=== PATIENT | female | born 1930 | race Asian ===

== ENCOUNTER 2016-09-29 11:41 | Inpatient (IN) | payer MEDICARE, MEDICAID ==
[2016-09-29 12:51] LABS: HEMATOCRIT 25.4 % (35.0-45.0); HEMOGLOBIN 8.8 gm/dL (11.7-16.1); MEAN CELL VOLUME 93.9 fl (81-100); MEAN CORPUSCULAR HEMOGLOBIN 32.7 pg (27.0-31.0); MEAN CORPUSCULAR HGB CONC 34.8 pg (28.0-36.0); MEAN PLATELET VOLUME 7.3 fl; PLATELET COUNT 228 Th/cmm (150-400); RED BLOOD COUNT 2.71 Mil/cmm (3.80-5.20); RED CELL DISTRIBUTION WIDTH 13.5 % (11.5-20.0)
[2016-09-29 12:56] LABS: WHITE BLOOD COUNT 15.3 Th/cmm (4.8-10.8)
[2016-09-29] MEDS ORDERED: Sodium Chloride 0.9% 1,000 ML IV ONE (12:56)
[2016-09-29 13:14] LABS: ALB/GLOB RATIO 0.8 (1.0-1.8); ALKALINE PHOSPHATASE 92 U/L (34-104); ANION GAP 8.9 (7.0-16.0); BILIRUBIN,TOTAL 0.6 mg/dL (0.3-1.0); BUN - UREA NITROGEN 56 mg/dL (7-25); CALCIUM SERUM 8.9 mg/dL (8.6-10.3); CARBON DIOXIDE 25.1 mEq/L (21.0-31.0); CHLORIDE 101 mEq/L (98-107); CREATININE - SERUM 0.7 mg/dL (0.6-1.2); GLUCOSE 123 mg/dL (70-105); SGOT 24 U/L (13-39); SGPT/ALT 25 U/L (7-52); SODIUM SERUM 131 mEq/L (136-145)
[2016-09-29 13:15] LABS: CHOLESTEROL 83 mg/dL (<200); TRIGLYCERIDES 307 mg/dL (<150)
[2016-09-29 13:24] LABS: BAND NEUTROPHILE 2 % (0-10); EOSINOPHIL 1 % (0-5); NEUTROPHILS 88 % (40-80); TOTAL CELLS COUNTED 100
[2016-09-29 13:25] LABS: PLATELET ESTIMATE ADEQUATE (NORMAL)
[2016-09-29 13:27] LABS: ANISOCYTOSIS 1+; PLATELET MORPHOLOGY NORMAL (NORMAL)
--- NOTE | 2016-09-29 13:57 | ED Physician Chart ---
Chief Complaint/HPI - Patient Information Date Seen:: 09/29/16 Time Seen:: 11:59 Chief Complaint:: LOW BLOOD PRESSURE History of Present Illness:: THIS IS AN 86 YO FEMALE BIB EMS WITH A HISTORY OF THE SUDDEN FALL OF HER BP AND SOME DIFFICULTY OF BREATHING. THIS PATIENT IS ON A VENTILATOR AND CHRONICALLY ILL FROM HAVING A CVA, ANEMIA, HYPERTENSION, DJD. Allergies:: Allergies Allergy/AdvReac Type Severity Reaction Status Date / Time No Known Allergies Allergy Verified 09/29/16 12:06 Vitals:: Vital Signs - 8 hr 09/29/16 11:58 Temp 98.3 F HR 101 RR 16 BP 116/54 O2 Sat % 100 Historian:: Medical Records Review:: Nurse's Note Reviewed, Old Chart Reviewed, Transfer documents Reviewed , Patient unable to respond Review of Systems - Review of Systems General/Constitutional: Other (PT IS UNABLE TO RESPOND) Skin: No skin lesions, No rash, No bruising Head: No headache, No light-headedness Eyes: No loss of vision, No pain, No diplopia ENT: No earache, No nasal drainage, No sore throat, No tinnitus Neck: No neck pain, No swelling, No thyromegaly, No stiffness, No mass noted Cardio Vascular: No chest pain, No palpitations, No PND, No orthopnea, No edema Pulmonary: No SOB, No cough, No sputum, No wheezing GI: No nausea, No vomiting, No diarrhea, No pain, No melena, No hematochezia, No constipation, No hematemesis G/U: No dysuria, No frequency, No hematuria Musculoskeletal: No bone or joint pain, No back pain, No muscle pain Endocrine: No polyuria, No polydipsia Psychiatric: No prior psych history, No depression, No anxiety, No suicidal ideation Hematopoietic: No bruising, No lymphadenopathy Allergic/Immuno: No urticaria, No angioedema Neurological: No syncope, No focal symptoms, No weakness, No paresthesia, No headache, No seizure, No dizziness, No confusion, No vertigo Past Medical History - Past Medical History Past Medical History: HTN, CAD, CVA/TIA, Arthritis, Other (RESPIRATORY FAILURE) Family History: None Social History: Non Smoker, No Alcohol, No Drug Use Surgical History: other (TRACH) Family Medical History - Family Member Mother History Unknown: Yes Physical Exam - Physical Examination General/Constitutional: Well-developed, well-nourished, No distress, GCS 15, Non -toxic appearing, Ambulatory Other Gen/Cons comments:: THIS PATIENT IS NOT SPEAKING AND RESPONSIVE TO ONLY PAINFUL STIMULUS. Head: Atraumatic Eyes: Lids, conjuctiva normal, PERRL, EOMI Skin: Nl inspection, No rash, No skin lesions, No ecchymosis, Well hydrated, No lymphadenopathy ENMT: External ears, nose nl, Nasal exam nl, Lips, teeth, gums nl Neck: Nontender, Full ROM w/o pain, No JVD, No nuchal rigidity, No bruit, No mass, No stridor Other Respiratory comments:: THERE ARE BILATERAL RHONCHI HEARD. Cardio Vascular: RRR, No murmur, gallop, rubs, NL S1 S2 GI: No tenderness/rebounding/guarding, No organomegaly, No hernia, Normal BS's, Nondistended, No mass/bruits, No McBurney tenderness : No CVA tenderness Extremities: No tenderness or effusion, Full ROM, normal strength in all extremities, No edema, Normal digits & nails Neuro/Psych: Alert/oriented, DTR's symmetric, Judgement/insight normal, Mood normal, Normal gait Other Neuro/Psych comments:: THIS PATIENT HAS LEFT SIDED WEAKNESS AND SEVERE MUSCLE WASTING IN ALL FOUR EXTREMITIES. Misc: normal gait, Normal back, No paraspinal tenderness Labs/Radiology/EKG Results - Lab Results Results: Laboratory Tests 09/29/16 09/29/16 09/29/16 12:10 12:10 12:10 WBC 15.3 H RBC 2.71 L Hgb 8.8 L Hct 25.4 L MCV 93.9 MCH 32.7 H MCHC Differential 34.8 RDW 13.5 Plt Count 228 MPV 7.3 Band Neutrophils % 2 Neutrophils (Manual) 88 H Lymphocytes 5 L Monocytes 4 Eosinophils 1 Platelet Estimate ADEQUATE Platelet Morphology NORMAL Anisocytosis 1+ PTT (Actin FS) 27.7 Sodium Potassium Chloride Carbon Dioxide Anion Gap BUN Creatinine Est GFR ( Amer) Est GFR (Non-Af Amer) BUN/Creatinine Ratio Glucose Calcium Total Bilirubin AST ALT Alkaline Phosphatase Troponin I Total Protein Albumin Globulin Albumin/Globulin Ratio Triglycerides 307 H Cholesterol 83 LDL Cholesterol Direct 28 L HDL Cholesterol 55 TSH 09/29/16 09/29/16 09/29/16 12:10 12:10 12:10 WBC RBC Hgb Hct MCV MCH MCHC Differential RDW Plt Count MPV Band Neutrophils % Neutrophils (Manual) Lymphocytes Monocytes Eosinophils Platelet Estimate Platelet Morphology Anisocytosis PTT (Actin FS) Sodium 131 L Potassium 4.0 Chloride 101 Carbon Dioxide 25.1 Anion Gap 8.9 BUN 56 H Creatinine 0.7 Est GFR ( Amer) TNP Est GFR (Non-Af Amer) TNP BUN/Creatinine Ratio 80.0 Glucose 123 H Calcium 8.9 Total Bilirubin 0.6 AST 24 ALT 25 Alkaline Phosphatase 92 Troponin I 0.02 Total Protein 7.0 Albumin 3.0 L Globulin 4.0 Albumin/Globulin Ratio 0.8 L Triglycerides Cholesterol LDL Cholesterol Direct HDL Cholesterol TSH 2.45 - Radiology Results Results: CHEST X-RAY = BILATERAL INFILTRATES SEEN - EKG Interpretations EKG Time:: 12:18 Rhythm: A FIB Shushan: RIGHT AXIS Rate: 81 Comments:: MULTI FOCAL PVC'S ED Septic Shock - . Is Septic Shock (SBP<90, OR Lactate>4 mmol\L) present?: No - <6hrs of presentation: Vital Signs: Vital Signs - 8 hr 09/29/16 11:58 Temp 98.3 F HR 101 RR 16 BP 116/54 O2 Sat % 100 Reassessment (Disposition) - Reassessment Reassessment Condition:: Improved - Diagnosis Diagnosis:: PNEUMONIA ANEMIA DEHYDRATION - Patient Disposition Discharge/Transfer:: Acute Care w/in this hosp Admitted to:: Telemetry Admitting Medical Physician:: Zulema Causey Condition at Disposition:: Unchanged ED Discharge Plan - Patient Disposition Admit/Discharge/Transfer: Acute Care w/in this hosp Condition at Disposition: Improved
[2016-09-29 14:17] LABS: URINE BILIRUBIN NEGATIVE (NEGATIVE); URINE BLOOD SMALL (NEGATIVE); URINE COLOR YELLOW; URINE GLUCOSE (UA) NEGATIVE (NEGATIVE); URINE KETONE NEGATIVE (NEGATIVE)
[2016-09-29 14:18] LABS: URINE PH 5.5; URINE PROTEIN NEGATIVE (NEGATIVE); URINE UROBILINOGEN 0.2 E.U./dL (0.2 - 1.0)
[2016-09-29 14:24] LABS: URINE BACTERIA MODERATE /hpf (NONE SEEN); URINE EPITHELIAL CELLS FEW /lpf (FEW)
--- NOTE | 2016-09-29 14:29 | Admit Criteria Form ---
Admit Criteria Forms - Admit Criteria Diagnosis: PNEUMONIA, COMMUNITY ACQUIRED Clinical Indications for Admission to Inpatient Care ( Place 'X' for any and all applicable criteria): Admission is indicated for ANY ONE of the following (1)(2)(3): [ ]I. Hypoxemia indicated by ANY ONE of the following: [ ]a) Oxygen saturation less than 90% while breathing room air [ ]b) PO2 less than 60 mm Hg (8.0 kPa) while breathing room air [ ]c) Chronic lung disease with significant deterioration from baseline oxygenation [ ]II. Appropriate diagnostic testing and treatment unavailable in outpatient or recovery facility (eg,testing or infection control measures unavailable(10) [X]III. Moderate-risk or high-risk category patients (Pneumonia Severity Index (PSI) class IV or V, or CURB-65 score of 3 or greater). [ ]IV. Outpatient treatment failure as indicated by ANY ONE of the following(9) : [ ]a) Failure to respond to antibiotic (eg, resistant organism) [ ]b) Clinically significant adverse effects from medication (eg, vomiting) [ ]c) Complications of pneumonia (eg, empyema, bacteremia) [ ]d) Significant worsening of comorbid cond necessitating inpatient care (eg, chronic heart failure) [ ]V. Intermediate-risk category patients (eg, PSI class III or CURB-65 score 2) who do not improve with initial therapy and observation. [ ]. Immunocompromised patients (eg, AIDS, chronic steroid use) at moderate or high risk based on clinical evaluation. [ ]VII. Complicated pleural effusions (eg, exudative, loculated) [ ]VIII.Hemodynamic instability [ ] IX. Altered mental status that is severe or persistent. [ ]X. Dehydration that is severe or persistent. [ ]XI. Bacteremia [ ]XII. Respiratory finding (eg. tachypnea) that do not respond to outpatient or observation care treatment Extended stay beyond goal length of stay may be needed for (20) [ ]a) Unclear diagnosis [ ]b) Pleural disease [ ]c) Severe pneumonia or treatment failure (25 [ ]d) Respiratory failure (anticipate invasive or noninvasive ventilatory support) [ ]e) Abnormal serum electrolytes (serum Na concentration less than 135 mEq/L (mmol/L) (32)(33) [ ]f) Clinically significant comorbid illness (eg, heart failure, atrial fibrillation with rapid heart rate, alcohol withdrawal, renal insufficiency)(34)(35) [ ]g) Comorbid acute exacerbation of COPD(36) [ ]h) Concomitant diagnosis of malignancy that may be associated with malnutrition, immunologic impairment, or bronchial obstruction. [ ]i) Concomitant altered mental status [ ]j) Culture-identified Gram-negative or antibiotic-resistant organism (eg, Pseudomonas, methicillin-resistant Staphylococcus aureus)(30) [ ]k) Healthcare-associated pneumonia The original [facility] content created by [employer] has been revised. The portions of the content which have been revised are identified through the use of italic text or in bold, and [facility] has neither reviewed nor approved the modified material. All other unmodified content is copyright [facility]. Please see references footnoted in the original [facility] [employer] edition 2016 Admit Criteria Met?: Yes
--- NOTE | 2016-09-29 14:36 | Diagnostic Imaging Report ---
Portable chest x-ray HISTORY: Shortness of breath The heart appears enlarged. There does appear to be degree of pulmonary vascular redistribution. A marginal cardiac decompensation cannot be excluded. No fernando pulmonary edema. No other focal pulmonary processes. Tracheostomy noted. Multiple metallic densities noted in the soft tissues adjacent to the right clavicle. IMPRESSION: 1. Cardiomegaly along with changes that may reflect a marginal degree of congestive heart failure. No fernando pulmonary edema. Clinical correlation needed. 2. No focal pulmonary processes
[2016-09-29 17:05] VITALS: BP 113/59
[2016-09-29] MEDS ORDERED: POLYETHYLENE GLYCOL 3350 17 GM PACK PO PRN (17:20)
[2016-09-29] MEDS ORDERED: [UNRECOGNIZED DRUG - OTHER] GT SCH (17:20)
[2016-09-29] MEDS ORDERED: Ipratropium Neb 0.5 mg/2.5 mL UD HHN ONE (17:20)
[2016-09-29] MEDS ORDERED: ACETAMINOPHEN GT SCH (17:20)
[2016-09-29] MEDS ORDERED: Albuterol Nebulizer 2.5mg/3mL IH SCH (17:45)
[2016-09-29] MEDS ORDERED: Azithromycin 500 MG in Sodium Chloride 0.9% 250 ML IV SCH (18:00)
[2016-09-29] MEDS: Ferrous Sulfate 300 MG/5 ML UDC GT SCH (18:08)
[2016-09-29] MEDS: Albuterol Nebulizer 2.5mg/3mL HHN SCH ×2 (19:00→23:00)
[2016-09-29] MEDS ORDERED: Albuterol Nebulizer 2.5mg/3mL HHN SCH (19:00)
[2016-09-29] MEDS: Ipratropium Neb 0.5 mg/2.5 mL UD HHN SCH ×2 (19:00→23:00)
[2016-09-29] MEDS: Chlorhexidine Gluconate 0.12% 480mL Bottle MM SCH (21:00)
[2016-09-29] MEDS: Cefepime 1 GM in Sodium Chloride 0.9% 50 ML IV SCH (23:17)
[2016-09-30] MEDS: Albuterol Nebulizer 2.5mg/3mL HHN SCH ×6 (03:00→22:56)
[2016-09-30] MEDS: Ipratropium Neb 0.5 mg/2.5 mL UD HHN SCH ×6 (03:00→22:56)
[2016-09-30 07:18] LABS: % BASOPHILS 0.3 % (0.0-2.0); % EOSINOPHILS 3.4 % (0.0-5.0); % LYMPHOCYTES 9.3 % (20.0-50.0); % MONOCYTES 7.9 % (2.0-10.0); % NEUTROPHILS 79.1 % (40.0-80.0); HEMATOCRIT 26.5 % (35.0-45.0); MEAN CELL VOLUME 93.6 fl (81-100); MEAN CORPUSCULAR HEMOGLOBIN 31.7 pg (27.0-31.0); MEAN CORPUSCULAR HGB CONC 33.9 pg (28.0-36.0); NEUTROPHILE ABSOLUTE 8.5 Th/cmm (1.8-8.0); PLATELET COUNT 218 Th/cmm (150-400); RED BLOOD COUNT 2.83 Mil/cmm (3.80-5.20); RED CELL DISTRIBUTION WIDTH 13.7 % (11.5-20.0)
[2016-09-30 07:19] LABS: WHITE BLOOD COUNT 10.7 Th/cmm (4.8-10.8)
--- NOTE | 2016-09-30 08:04 | Consultation ---
REFERRING PHYSICIAN: Dr. Causey. Dr. Causey, thank you very much for this consultation. HISTORY OF PRESENT ILLNESS: This is an 86-year-old female with history of recent CVA about 12 hours, has been on a ventilator, status post tracheostomy, G-tube feeding. The patient apparently had an episode of hypotension. Blood pressure was in 70s according to the family and was brought to the Emergency Room. She was admitted for further treatment and management. The patient was started on IV fluids, has improved since then, not requiring any pressors and was given dose of Rocephin. The patient according to family is a little bit more altered than usual. She is more awake normally. PAST MEDICAL HISTORY: As above. SOCIAL HISTORY: No smoking or drinking. REVIEW OF SYSTEMS: Unobtainable because of the patient's condition. PHYSICAL EXAMINATION: GENERAL: The patient is on vent. VITAL SIGNS: Temperature 98.0, pulse 86, respiration 30-20, blood pressure is 131/60, and saturation 96%. HEENT: Atraumatic and normocephalic. Pupils react to light and accommodation. Ears, nose, and throat are normal. NECK: Supple. CHEST: There is rhonchi bilaterally, fair air entry. HEART: Regular rate and rhythm. ABDOMEN: Soft. EXTREMITIES: No edema. LABORATORY DATA: WBC is 15.0, hemoglobin 8.8, hematocrit 25.4, and platelet is 228,000. Sodium 131, potassium 4.0, BUN 56, and creatinine 0.7. Chest x-ray showed left-sided infiltrate. IMPRESSION: 1. This is an 86-year-old female with left-sided pneumonia, healthcare associated. The patient has been in snf for a while. She has multiple infections in the past and exposed to multiple antibiotics as well. 2. Chronic respiratory failure. 3. Dysphagia. 4. Cerebrovascular accident. PLAN: 1. IV antibiotics. We will change the antibiotics to Maxipime and vancomycin. 2. Nebulizer. 3. Sputum culture. 4. IV hydration. 5. Ventilator support. Case was discussed with the patient's family at bedside in detail. JOB# [id number] [facility]
[2016-09-30 08:19] LABS: ALB/GLOB RATIO 0.7 (1.0-1.8); ALKALINE PHOSPHATASE 82 U/L (34-104); ANION GAP 10.4 (7.0-16.0); BILIRUBIN,TOTAL 0.4 mg/dL (0.3-1.0); BUN - UREA NITROGEN 41 mg/dL (7-25); BUN/CREATININE RATIO 68.3; CARBON DIOXIDE 22.6 mEq/L (21.0-31.0); CHLORIDE 107 mEq/L (98-107); CREATININE - SERUM 0.6 mg/dL (0.6-1.2); GLUCOSE 121 mg/dL (70-105); SGOT 20 U/L (13-39); SGPT/ALT 21 U/L (7-52); SODIUM SERUM 136 mEq/L (136-145)
[2016-09-30 08:59] LABS: pH 7.44 (7.35-7.45)
[2016-09-30 09:00] LABS: ABG SOURCE Arterial; ALLEN TEST YES; BE(B) 1.1 mEq/L (-3.0-3.0); CRITICAL VALUES REPORTED BY SH; FIO2 30; HCO3 25.1 mEq/L (20.0-26.0); MECH RATE 12; MECH VT 400
[2016-09-30] MEDS ORDERED: Non-Formulary Item 1 EA (Amino Acids/Protein Hydrolys [Pro-Stat Awc Liquid] 30 ML) GT SCH (09:00)
--- NOTE | 2016-09-30 09:20 | Diagnostic Imaging Report ---
Portable chest x-ray HISTORY: Pneumonia Compared with prior exam of September 29, 2016, the heart remains enlarged. No definite focal pulmonary processes are seen. No other changes. IMPRESSION: 1. No change from September 29, 2016. No definite focal processes.
[2016-09-30] MEDS: Cefepime 1 GM in Sodium Chloride 0.9% 50 ML IV SCH ×3 (09:21→23:00)
[2016-09-30] MEDS: Potassium Chloride Elixir 20 mEq /15 mL UDC GT SCH (09:22)
[2016-09-30] MEDS: Ascorbic Acid 500 mg/5 mL UDC GT SCH (09:22)
[2016-09-30] MEDS: Pantoprazole 40 mg/Packet GT SCH (09:22)
[2016-09-30] MEDS: Ferrous Sulfate 300 MG/5 ML UDC GT SCH ×2 (09:24→17:45)
[2016-09-30] MEDS: Chlorhexidine Gluconate 0.12% 480mL Bottle MM SCH ×2 (09:24→20:54)
--- NOTE | 2016-09-30 12:16 | History & Physical Pre-OP ---
CHIEF COMPLAINT: Hypertension, congestion. HISTORY OF PRESENT ILLNESS: This is an 86-year-old [place] female with multiple medical problems including chronic respiratory failure, status post tracheostomy, history of PEG feedings, history of CVA, DJD of lumbar spine, who was noted to have an episode of hypotension and increased congestion at the long-term where she resides, namely [facility]. The patient was transferred to ER where pertinent findings included a white count 15.3, sodium 131, BUN of 56. An x-ray showing cardiomegaly with criteria suggestive of CHF and bilateral infiltrates. She also had a UA consistent with a UTI. Vital signs did not show any fever and no hypotension. The patient has been admitted to ICU for further management and care. PAST MEDICAL HISTORY: As noted above. PAST SURGICAL HISTORY: Include trach and PEG. FAMILY HISTORY: Likely noncontributory. SOCIAL HISTORY: Unknown. Currently, she lives at [facility]. ALLERGIES: NKDA. OUTPATIENT MEDICATIONS: Tylenol 650 via G-tube q. 6 hours p.r.n., Pro-Stat daily, Flexeril 5 mg every day, iron sulfate 300 mg via G-tube b.i.d., Lasix 20 mg every day, Zofran p.r.n. 4 mg q. 6 p.r.n. for nausea, vomiting, Protonix 40 every day, potassium elixir 20 mEq every day, tramadol 50 mg q. 8 hours p.r.n. for pain, vitamin C every day, amlodipine 5 every day. REVIEW OF SYSTEMS: Unable to be obtained given the patient's condition. PHYSICAL EXAMINATION: VITAL SIGNS: Temperature 98.8, pulse 77, respirations 14-16, BP 108/49, satting 100% on 30%. GENERAL: She is a well-developed, well-nourished female who appears to be in no acute distress. She is breathing comfortably. HEAD AND NECK: Normocephalic, atraumatic. NECK: There is no JVD or LAD. CARDIAC: Irregularly irregular rhythm. LUNGS: She has got crackles bilaterally. There is no audible wheezing. ABDOMEN: Soft, supple, nontender, nondistended. There is a PEG tube in place. EXTREMITIES: Lower extremities: There is trace edema. NEUROLOGIC: Difficult to assess given the patient does not follow commands. LABORATORY DATA: On admission, white count 15.3, H and H of 8/25, platelet count 28 with 88% neutrophils. Sodium 131, BUN 56, glucose 123. Otherwise, chem 20 was essentially within normal limits. TSH 2.45. ABG drawn on current settings, pH 7.44, pCO2 of 37, pO2 25, bicarb 25, base excess is 1.1. UA showed small leukocyte esterase with 6-10 wbc's and small blood. DIAGNOSTICS: Chest x-ray, official result, cardiomegaly with changes that may reflect CHF. There were no focal pulmonary processes noted. IMPRESSION: 1. Shock. This could be either septic shock or hypovolemic shock, other etiology include cardiogenic shock. 2. Likely bronchitis versus early pneumonia. 3. Rule out congestive heart failure given current findings on x-rays, namely pulmonary vascular congestion. 4. History of chronic respiratory failure, status post trach. 5. History of cerebrovascular accident with late findings including encephalopathy. 6. History of PEG placement secondary to dysphagia. 7. Leukocytosis. 8. UTI. PLAN: The patient has been admitted to ICU for further management and care. The patient has been placed on IV antibiotics, pulmonary supportive care and has been pancultured including blood cultures and sputum C and S. We will follow UA, C and S. Pulmonary consult has also been ordered for further management and care. The patient's medications will be continued and she also will be receiving Lasix as scheduled, namely p.o. 20 daily. BNP level will be asked for given her current findings. Daily labs will be also checked and followup x-ray will be done. JOB# [id number] CHARI
[2016-09-30] MEDS ORDERED: Probiotic Screen MC PRN (14:16)
[2016-10-01] MEDS: Albuterol Nebulizer 2.5mg/3mL HHN SCH ×6 (03:48→23:17)
[2016-10-01] MEDS: Ipratropium Neb 0.5 mg/2.5 mL UD HHN SCH ×6 (03:49→23:17)
[2016-10-01 05:26] LABS: ANION GAP 9.3 (7.0-16.0); BUN - UREA NITROGEN 33 mg/dL (7-25); CALCIUM SERUM 8.9 mg/dL (8.6-10.3); CARBON DIOXIDE 23.9 mEq/L (21.0-31.0); CHLORIDE 110 mEq/L (98-107); CREATININE - SERUM 0.6 mg/dL (0.6-1.2); GLUCOSE 167 mg/dL (70-105); MAGNESIUM 2.3 mg/dL (1.9-2.7); POTASSIUM SERUM 4.2 mEq/L (3.5-5.1); SODIUM SERUM 139 mEq/L (136-145)
[2016-10-01 05:37] LABS: HEMATOCRIT 26.7 % (35.0-45.0); HEMOGLOBIN 9.1 gm/dL (11.7-16.1); MEAN CELL VOLUME 97.2 fl (81-100); MEAN CORPUSCULAR HGB CONC 33.9 pg (28.0-36.0); MEAN PLATELET VOLUME 8.2 fl; PLATELET COUNT 210 Th/cmm (150-400); RED BLOOD COUNT 2.75 Mil/cmm (3.80-5.20); RED CELL DISTRIBUTION WIDTH 13.6 % (11.5-20.0)
[2016-10-01 06:12] LABS: WHITE BLOOD COUNT 17.4 Th/cmm (4.8-10.8)
[2016-10-01] MEDS: Chlorhexidine Gluconate 0.12% 480mL Bottle MM SCH ×2 (08:35→21:36)
[2016-10-01 08:44] LABS: BAND NEUTROPHILE 2 % (0-10); EOSINOPHIL 1 % (0-5); NEUTROPHILS 83 % (40-80); PLATELET ESTIMATE ADEQUATE (NORMAL); PLATELET MORPHOLOGY NORMAL (NORMAL); TOTAL CELLS COUNTED 100
[2016-10-01] MEDS: Ascorbic Acid 500 mg/5 mL UDC GT SCH (09:44)
[2016-10-01] MEDS: Lactobacillus Rhamnosus 10 Billion CFU Capsule PO SCH (09:45)
[2016-10-01] MEDS: Ferrous Sulfate 300 MG/5 ML UDC GT SCH ×2 (09:45→17:52)
[2016-10-01] MEDS: Potassium Chloride Elixir 20 mEq /15 mL UDC GT SCH (09:45)
[2016-10-01] MEDS: Pantoprazole 40 mg/Packet GT SCH (09:45)
[2016-10-01] MEDS: Cefepime 1 GM in Sodium Chloride 0.9% 50 ML IV SCH ×2 (09:46→21:37)
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
[2016-10-02] MEDS: Albuterol Nebulizer 2.5mg/3mL HHN SCH ×6 (03:19→23:37)
[2016-10-02] MEDS: Ipratropium Neb 0.5 mg/2.5 mL UD HHN SCH ×6 (03:19→23:37)
[2016-10-02 04:57] LABS: % BASOPHILS 0.3 % (0.0-2.0); % EOSINOPHILS 2.4 % (0.0-5.0); % LYMPHOCYTES 11.8 % (20.0-50.0); % MONOCYTES 8.9 % (2.0-10.0); % NEUTROPHILS 76.6 % (40.0-80.0); HEMATOCRIT 26.7 % (35.0-45.0); HEMOGLOBIN 9.2 gm/dL (11.7-16.1); MEAN CELL VOLUME 92.9 fl (81-100); MEAN CORPUSCULAR HEMOGLOBIN 31.9 pg (27.0-31.0); MEAN CORPUSCULAR HGB CONC 34.3 pg (28.0-36.0); MEAN PLATELET VOLUME 7.2 fl; NEUTROPHILE ABSOLUTE 6.2 Th/cmm (1.8-8.0); PLATELET COUNT 215 Th/cmm (150-400); RED BLOOD COUNT 2.87 Mil/cmm (3.80-5.20); RED CELL DISTRIBUTION WIDTH 13.8 % (11.5-20.0)
[2016-10-02 05:07] LABS: WHITE BLOOD COUNT 8.1 Th/cmm (4.8-10.8)
[2016-10-02 05:10] LABS: ANION GAP 4.8 (7.0-16.0); BUN - UREA NITROGEN 28 mg/dL (7-25); BUN/CREATININE RATIO 46.7; CALCIUM SERUM 9.2 mg/dL (8.6-10.3); CARBON DIOXIDE 27.2 mEq/L (21.0-31.0); CHLORIDE 108 mEq/L (98-107); CREATININE - SERUM 0.6 mg/dL (0.6-1.2); GLUCOSE 154 mg/dL (70-105); SODIUM SERUM 136 mEq/L (136-145)
[2016-10-02 09:19] LABS: BE(B) 4.2 mEq/L (-3.0-3.0); HCO3 27.1 mEq/L (20.0-26.0); pH 7.51 (7.35-7.45)
[2016-10-02] MEDS: Lactobacillus Rhamnosus 10 Billion CFU Capsule PO SCH (09:19)
[2016-10-02] MEDS: Potassium Chloride Elixir 20 mEq /15 mL UDC GT SCH (09:19)
[2016-10-02] MEDS: Ascorbic Acid 500 mg/5 mL UDC GT SCH (09:19)
[2016-10-02] MEDS: Ferrous Sulfate 300 MG/5 ML UDC GT SCH ×2 (09:19→16:50)
[2016-10-02] MEDS: Pantoprazole 40 mg/Packet GT SCH (09:19)
[2016-10-02] MEDS: Chlorhexidine Gluconate 0.12% 480mL Bottle MM SCH (09:19)
[2016-10-02 09:20] LABS: ABG SOURCE Arterial; ALLEN TEST YES; CRITICAL VALUES REPORTED BY SH; FIO2 30; MECH RATE 12; MECH VT 400
[2016-10-02] MEDS: Cefepime 1 GM in Sodium Chloride 0.9% 50 ML IV SCH ×2 (09:20→21:25)
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
--- NOTE | 2016-10-02 15:14 | Cardiology ---
Patient of Dr. Causey. M-MODE ECHOCARDIOGRAM: Mitral valve, anterior leaflet of the mitral valve shows normal excursion, EF velocity. Posterior leaflet of mitral valve shows normal excursion. Left ventricular posterior wall shows increased thickness, normal excursion. Interventricular septum shows increased thickness, normal excursion, hypertrophy of the left ventricle, ejection fraction 70%, left atrium enlarged. Aortic root shows normal dimension, normal excursion of aortic leaflets. CONCLUSION: Hypertrophy of the left ventricle, left atrial enlargement, ejection fraction 70%. 2D ECHO: Long axis view showed normal sized left ventricle with hypertrophy of the left ventricle. Left atrium enlarged. Aortic root showed normal dimension, normal excursion of aortic leaflets. Short axis view of mitral valve normal. Short axis view of aortic valve normal. Apical four chamber view shows normal sized left ventricle with hypertrophy of the left ventricle, left atrial enlargement, right ventricular cavity normal. Right atrial enlargement. CONCLUSION: Left atrial enlargement. Right atrial enlargement. Hypertrophy of the left ventricle, ejection fraction 70%. Doppler study shows mild mitral regurgitation, tricuspid regurgitation, aortic regurgitation, pulmonary regurgitation, right ventricular systolic pressure 44 mmHg with mild pulmonary hypertension. CONCLUSION: Hypertrophy of the left ventricle, left atrial enlargement, right atrial enlargement, ejection fraction 70%, mild pulmonary hypertension. Mild mitral regurgitation, tricuspid regurgitation, aortic regurgitation, pulmonary regurgitation. [facility]# [id number]
[2016-10-02] MEDS: Chlorhexidine Gluconate 0.12% 15mL Mouthwash MM SCH (16:50)
[2016-10-02] MEDS ORDERED: Amikacin 250 mg/mL 2mL Vial IV ONE (23:51)
[2016-10-03] MEDS: Albuterol Nebulizer 2.5mg/3mL HHN SCH ×6 (03:16→22:04)
[2016-10-03] MEDS: Ipratropium Neb 0.5 mg/2.5 mL UD HHN SCH ×6 (03:16→22:07)
[2016-10-03 05:17] LABS: % BASOPHILS 0.4 % (0.0-2.0); % EOSINOPHILS 2.6 % (0.0-5.0); % LYMPHOCYTES 12.4 % (20.0-50.0); % MONOCYTES 9.9 % (2.0-10.0); % NEUTROPHILS 74.7 % (40.0-80.0); HEMATOCRIT 26.3 % (35.0-45.0); HEMOGLOBIN 9.1 gm/dL (11.7-16.1); MEAN CELL VOLUME 92.7 fl (81-100); MEAN CORPUSCULAR HEMOGLOBIN 32.3 pg (27.0-31.0); MEAN CORPUSCULAR HGB CONC 34.8 pg (28.0-36.0); MEAN PLATELET VOLUME 7.1 fl; NEUTROPHILE ABSOLUTE 5.7 Th/cmm (1.8-8.0); PLATELET COUNT 235 Th/cmm (150-400); RED BLOOD COUNT 2.83 Mil/cmm (3.80-5.20); RED CELL DISTRIBUTION WIDTH 13.6 % (11.5-20.0); WHITE BLOOD COUNT 7.5 Th/cmm (4.8-10.8)
[2016-10-03 05:40] LABS: ANION GAP 7.1 (7.0-16.0); BUN - UREA NITROGEN 27 mg/dL (7-25); CALCIUM SERUM 9.6 mg/dL (8.6-10.3); CARBON DIOXIDE 28.9 mEq/L (21.0-31.0); CHLORIDE 109 mEq/L (98-107); CREATININE - SERUM 0.5 mg/dL (0.6-1.2); GLUCOSE 137 mg/dL (70-105); MAGNESIUM 2.3 mg/dL (1.9-2.7); SODIUM SERUM 141 mEq/L (136-145)
[2016-10-03] MEDS: Ascorbic Acid 500 mg/5 mL UDC GT SCH (08:52)
[2016-10-03] MEDS: Ferrous Sulfate 300 MG/5 ML UDC GT SCH ×2 (08:53→16:55)
[2016-10-03] MEDS: Lactobacillus Rhamnosus 10 Billion CFU Capsule PO SCH (08:53)
[2016-10-03] MEDS: Potassium Chloride Elixir 20 mEq /15 mL UDC GT SCH (08:54)
[2016-10-03] MEDS: Pantoprazole 40 mg/Packet GT SCH (08:54)
[2016-10-03] MEDS: Chlorhexidine Gluconate 0.12% 15mL Mouthwash MM SCH ×2 (08:54→16:55)
[2016-10-03] MEDS: Cefepime 1 GM in Sodium Chloride 0.9% 50 ML IV SCH ×2 (10:22→21:15)
[2016-10-03] MEDS: Sodium Chloride 0.45% 1,000 ML IV SCH (12:00)
[2016-10-04] MEDS: Ipratropium Neb 0.5 mg/2.5 mL UD HHN SCH ×6 (02:15→22:47)
[2016-10-04] MEDS: Albuterol Nebulizer 2.5mg/3mL HHN SCH ×6 (02:15→22:47)
[2016-10-04 05:11] LABS: HEMATOCRIT 28.6 % (35.0-45.0); MEAN CELL VOLUME 93.5 fl (81-100); MEAN CORPUSCULAR HEMOGLOBIN 32.6 pg (27.0-31.0); MEAN CORPUSCULAR HGB CONC 34.8 pg (28.0-36.0); MEAN PLATELET VOLUME 7.2 fl; PLATELET COUNT 233 Th/cmm (150-400); RED BLOOD COUNT 3.06 Mil/cmm (3.80-5.20); RED CELL DISTRIBUTION WIDTH 13.7 % (11.5-20.0)
[2016-10-04 05:20] LABS: WHITE BLOOD COUNT 11.7 Th/cmm (4.8-10.8)
[2016-10-04 05:39] LABS: ANION GAP 7.4 (7.0-16.0); BUN - UREA NITROGEN 27 mg/dL (7-25); CALCIUM SERUM 9.8 mg/dL (8.6-10.3); CARBON DIOXIDE 28.6 mEq/L (21.0-31.0); CHLORIDE 105 mEq/L (98-107); CREATININE - SERUM 0.5 mg/dL (0.6-1.2); GLUCOSE 141 mg/dL (70-105); MAGNESIUM 2.3 mg/dL (1.9-2.7); SODIUM SERUM 137 mEq/L (136-145)
[2016-10-04 08:18] LABS: ANISOCYTOSIS 1+; BAND NEUTROPHILE 4 % (0-10); BASOPHIL 1 % (0-3); EOSINOPHIL 3 % (0-5); METAMYELOCYTE 1 % (0-0); NEUTROPHILS 78 % (40-80); PLATELET ESTIMATE ADEQUATE (NORMAL); PLATELET MORPHOLOGY NORMAL (NORMAL); POLYCHROMASIA 1+; TOTAL CELLS COUNTED 100
[2016-10-04] MEDS: Potassium Chloride Elixir 20 mEq /15 mL UDC GT SCH (09:43)
[2016-10-04] MEDS: Chlorhexidine Gluconate 0.12% 15mL Mouthwash MM SCH ×2 (09:44→17:01)
[2016-10-04] MEDS: Pantoprazole 40 mg/Packet GT SCH (09:44)
[2016-10-04] MEDS: Lactobacillus Rhamnosus 10 Billion CFU Capsule PO SCH (09:44)
[2016-10-04] MEDS: Ferrous Sulfate 300 MG/5 ML UDC GT SCH ×2 (09:44→17:01)
[2016-10-04] MEDS: Ascorbic Acid 500 mg/5 mL UDC GT SCH (09:44)
[2016-10-04] MEDS: Cefepime 1 GM in Sodium Chloride 0.9% 50 ML IV SCH (10:00)
--- NOTE | 2016-10-04 10:28 | Diagnostic Imaging Report ---
CHEST X-RAY: AP view INDICATION: Shortness of breath COMPARISON: Chest x-ray 10/02/2016 FINDINGS: Tracheostomy tube is stable. Increased left basal lung markings are noted. No focal consolidation pleural effusions or evidence of fernando CHF. Mild cardiomegaly is noted with atherosclerosis. IMPRESSION: Increased left basal lung markings again favoring chronic etiology. Superimposed acute process is less likely. No focal consolidations identified.
[2016-10-04] MEDS: Cefepime 1 gm in 0.9% NS 50 mL IV SCH (22:42)
[2016-10-05] MEDS: Ipratropium Neb 0.5 mg/2.5 mL UD HHN SCH ×6 (03:01→22:21)
[2016-10-05] MEDS: Albuterol Nebulizer 2.5mg/3mL HHN SCH ×6 (03:01→22:21)
[2016-10-05] MEDS: Sodium Chloride 0.45% 1,000 ML IV SCH (04:53)
[2016-10-05 05:06] LABS: HEMATOCRIT 28.1 % (35.0-45.0); HEMOGLOBIN 9.8 gm/dL (11.7-16.1); MEAN CORPUSCULAR HEMOGLOBIN 33.9 pg (27.0-31.0); MEAN PLATELET VOLUME 7.3 fl; PLATELET COUNT 248 Th/cmm (150-400); RED CELL DISTRIBUTION WIDTH 13.3 % (11.5-20.0)
[2016-10-05 05:17] LABS: WHITE BLOOD COUNT 16.3 Th/cmm (4.8-10.8)
[2016-10-05 05:25] LABS: ANION GAP 9.8 (7.0-16.0); BUN - UREA NITROGEN 39 mg/dL (7-25); BUN/CREATININE RATIO 55.7; CALCIUM SERUM 9.7 mg/dL (8.6-10.3); CARBON DIOXIDE 24.4 mEq/L (21.0-31.0); CHLORIDE 104 mEq/L (98-107); CREATININE - SERUM 0.7 mg/dL (0.6-1.2); GLUCOSE 150 mg/dL (70-105); POTASSIUM SERUM 4.2 mEq/L (3.5-5.1); SODIUM SERUM 134 mEq/L (136-145)
[2016-10-05] MEDS: Ascorbic Acid 500 mg/5 mL UDC GT SCH (08:28)
[2016-10-05] MEDS: Ferrous Sulfate 300 MG/5 ML UDC GT SCH ×2 (08:28→18:48)
[2016-10-05] MEDS: Potassium Chloride Elixir 20 mEq /15 mL UDC GT SCH (08:28)
[2016-10-05] MEDS: Lactobacillus Rhamnosus 10 Billion CFU Capsule PO SCH (08:29)
[2016-10-05] MEDS: Pantoprazole 40 mg/Packet GT SCH (08:29)
[2016-10-05 08:42] LABS: BAND NEUTROPHILE 7 % (0-10); EOSINOPHIL 1 % (0-5); METAMYELOCYTE 2 % (0-0); NEUTROPHILS 78 % (40-80); TOTAL CELLS COUNTED 100
[2016-10-05 08:43] LABS: ANISOCYTOSIS 1+; PLATELET ESTIMATE ADEQUATE (NORMAL); PLATELET MORPHOLOGY NORMAL (NORMAL); POLYCHROMASIA 1+
[2016-10-05] MEDS: Chlorhexidine Gluconate 0.12% 15mL Mouthwash MM SCH ×2 (09:06→17:20)
[2016-10-05 10:16] LABS: URINE BILIRUBIN NEGATIVE (NEGATIVE); URINE BLOOD TRACE (NEGATIVE); URINE COLOR YELLOW; URINE GLUCOSE (UA) NEGATIVE (NEGATIVE); URINE KETONE NEGATIVE (NEGATIVE); URINE PROTEIN 30 mg/dL (NEGATIVE); URINE UROBILINOGEN 0.2 E.U./dL (0.2 - 1.0)
[2016-10-05 10:17] LABS: INR 1.06 (0.5-1.4)
[2016-10-05 10:29] LABS: URINE BACTERIA OCCASIONAL /hpf (NONE SEEN); URINE EPITHELIAL CELLS OCCASIONAL /lpf (FEW)
[2016-10-05] MEDS: Cefepime 1 gm in 0.9% NS 50 mL IV SCH (11:00)
--- NOTE | 2016-10-05 17:49 | Consultation ---
REFERRING PHYSICIAN: Dr. Causey. REASON FOR CONSULTATION: Replacement of tracheostomy tube. Thank you for referring this patient to me. HISTORY OF PRESENT ILLNESS: This is an 86-year-old female who comes in for hypertension and congestion. PAST MEDICAL HISTORY: Includes respiratory failure and tracheostomy and the tube apparently has been in place for a long time. Duration is not exactly known. She has CVA with encephalopathy. She has a PEG in place and UTI. Attempt was made by bleach tester to change the trach tube because of possible leak, but this started to bleed. Surgical evaluation was done and replacement will be done in the operating room where control of bleeding can be done if necessary. JOB# [id number]
--- NOTE | 2016-10-05 18:37 | Operative Report ---
PREOPERATIVE DIAGNOSES: 1. Respiratory failure, chronic. 2. Ventilatory support via tracheostomy. 3. Cerebrovascular accident. 4. PEG tube feeding. POSTOPERATIVE DIAGNOSES: 1. Respiratory failure, chronic. 2. Ventilatory support via tracheostomy. 3. Cerebrovascular accident. 4. PEG tube feeding. OPERATION DONE: Replacement of tracheostomy tube. INDICATION: An attempt to replace the tube by brand manager resulted in some bleeding and because of the resistance, this was discontinued. SURGEON: Fredi Carreon M.D. ANESTHESIA: MAC. ANESTHESIOLOGIST: Dr. Kaye. DESCRIPTION OF PROCEDURE: The patient was given IV sedation. The neck was hyperextended, prepped with Betadine and draped in appropriate manner. With some force, the old tracheostomy tube was removed and a new one [place] 6 long length was inserted. This anchored to the neck and the balloon inflated. The patient tolerated the procedure well. [facility]# [id number]
[2016-10-06] MEDS: Cefepime 1 gm in 0.9% NS 50 mL IV SCH ×3 (00:13→22:33)
[2016-10-06] MEDS: Ipratropium Neb 0.5 mg/2.5 mL UD HHN SCH ×6 (02:18→22:50)
[2016-10-06] MEDS: Albuterol Nebulizer 2.5mg/3mL HHN SCH ×5 (02:18→19:53)
[2016-10-06] MEDS: Sodium Chloride 0.45% 1,000 ML IV SCH (05:26)
[2016-10-06 05:27] LABS: ANION GAP 7.4 (7.0-16.0); BUN - UREA NITROGEN 30 mg/dL (7-25); CALCIUM SERUM 9.1 mg/dL (8.6-10.3); CARBON DIOXIDE 26.6 mEq/L (21.0-31.0); CHLORIDE 103 mEq/L (98-107); CREATININE - SERUM 0.5 mg/dL (0.6-1.2); GLUCOSE 126 mg/dL (70-105); SODIUM SERUM 133 mEq/L (136-145)
[2016-10-06 05:28] LABS: HEMATOCRIT 26.4 % (35.0-45.0); MEAN CELL VOLUME 92.7 fl (81-100); MEAN CORPUSCULAR HEMOGLOBIN 31.5 pg (27.0-31.0); MEAN PLATELET VOLUME 7.9 fl; PLATELET COUNT 202 Th/cmm (150-400); RED BLOOD COUNT 2.85 Mil/cmm (3.80-5.20); RED CELL DISTRIBUTION WIDTH 13.4 % (11.5-20.0)
[2016-10-06 05:40] LABS: WHITE BLOOD COUNT 14.5 Th/cmm (4.8-10.8)
[2016-10-06 08:55] LABS: BAND NEUTROPHILE 2 % (0-10); EOSINOPHIL 3 % (0-5); NEUTROPHILS 77 % (40-80); PLATELET ESTIMATE ADEQUATE (NORMAL); PLATELET MORPHOLOGY NORMAL (NORMAL); TOTAL CELLS COUNTED 100
[2016-10-06] MEDS: Ferrous Sulfate 300 MG/5 ML UDC GT SCH ×2 (08:56→17:44)
[2016-10-06] MEDS: Lactobacillus Rhamnosus 10 Billion CFU Capsule PO SCH (08:59)
[2016-10-06] MEDS: Pantoprazole 40 mg/Packet GT SCH (08:59)
[2016-10-06] MEDS: Potassium Chloride Elixir 20 mEq /15 mL UDC GT SCH (09:01)
[2016-10-06] MEDS: Ascorbic Acid 500 mg/5 mL UDC GT SCH (09:02)
[2016-10-06] MEDS: Chlorhexidine Gluconate 0.12% 15mL Mouthwash MM SCH ×2 (09:03→18:51)
--- NOTE | 2016-10-06 13:00 | General Progress Note ---
Subjective - Review of Systems Service Date: 10/06/16 Events since last encounter: trach OK Objective - Results Result Diagrams: 10/06/16 04:35 10/06/16 04:35 Recent Labs: Laboratory Last Values WBC 14.5 Th/cmm (4.8-10.8) H 10/06/16 04:35 RBC 2.85 Mil/cmm (3.80-5.20) L 10/06/16 04:35 Hgb 9.0 gm/dL (11.7-16.1) L 10/06/16 04:35 Hct 26.4 % (35.0-45.0) L 10/06/16 04:35 MCV 92.7 fl (81-100) 10/06/16 04:35 MCH 31.5 pg (27.0-31.0) H 10/06/16 04:35 MCHC Differential 34.0 pg (28.0-36.0) 10/06/16 04:35 RDW 13.4 % (11.5-20.0) 10/06/16 04:35 Plt Count 202 Th/cmm (150-400) 10/06/16 04:35 MPV 7.9 fl 10/06/16 04:35 Neutrophils % 74.7 % (40.0-80.0) 10/03/16 05:06 Band Neutrophils % 2 % (0-10) 10/06/16 04:35 Lymphocytes % 12.4 % (20.0-50.0) L 10/03/16 05:06 Monocytes % 9.9 % (2.0-10.0) 10/03/16 05:06 Eosinophils % 2.6 % (0.0-5.0) 10/03/16 05:06 Basophils % 0.4 % (0.0-2.0) 10/03/16 05:06 Neutrophils (Manual) 77 % (40-80) 10/06/16 04:35 Lymphocytes 13 % (20-50) L 10/06/16 04:35 Monocytes 5 % (2-10) 10/06/16 04:35 Eosinophils 3 % (0-5) 10/06/16 04:35 Basophils 1 % (0-3) 10/04/16 04:48 Metamyelocytes 2 % (0-0) H 10/05/16 04:39 Platelet Estimate ADEQUATE (NORMAL) 10/06/16 04:35 Platelet Morphology NORMAL (NORMAL) 10/06/16 04:35 Polychromasia 1+ 10/05/16 04:39 Anisocytosis 1+ 10/05/16 04:39 RBC Morph Micro Appear NORMAL (NORMAL) 10/06/16 04:35 PT 11.0 SECONDS (9.5-11.5) 10/05/16 09:55 INR 1.06 (0.5-1.4) 10/05/16 09:55 PTT (Actin FS) 26.3 SECONDS (26.0-38.0) 10/05/16 09:55 Specimen Source Arterial 10/02/16 08:00 Sample Site Right Radial 10/02/16 08:00 pH 7.51 (7.35-7.45) H 10/02/16 08:00 pCO2 34.0 mmHg (35.0-45.0) L 10/02/16 08:00 pO2 143.0 mmHg (80.0-100.0) H 10/02/16 08:00 HCO3 27.1 mEq/L (20.0-26.0) H 10/02/16 08:00 Base Excess 4.2 mEq/L (-3.0-3.0) H 10/02/16 08:00 O2 Saturation 99.0 % (92.0-100.0) 10/02/16 08:00 Antonio Test YES 10/02/16 08:00 Vent Rate 12 10/02/16 08:00 Inspired O2 30 10/02/16 08:00 Tidal Volume 400 10/02/16 08:00 PEEP 5 10/02/16 08:00 Pressure (ins/psv/peep) NA 10/02/16 08:00 Critical Value SH 10/02/16 08:00 Sodium 133 mEq/L (136-145) L 10/06/16 04:35 Potassium 4.0 mEq/L (3.5-5.1) 10/06/16 04:35 Chloride 103 mEq/L (98-107) 10/06/16 04:35 Carbon Dioxide 26.6 mEq/L (21.0-31.0) 10/06/16 04:35 Anion Gap 7.4 (7.0-16.0) 10/06/16 04:35 BUN 30 mg/dL (7-25) H 10/06/16 04:35 Creatinine 0.5 mg/dL (0.6-1.2) L 10/06/16 04:35 Est GFR ( Amer) TNP 10/06/16 04:35 Est GFR (Non-Af Amer) TNP 10/06/16 04:35 BUN/Creatinine Ratio 60.0 10/06/16 04:35 Glucose 126 mg/dL (70-105) H 10/06/16 04:35 Calcium 9.1 mg/dL (8.6-10.3) 10/06/16 04:35 Magnesium 2.3 mg/dL (1.9-2.7) 10/04/16 04:48 Total Bilirubin 0.4 mg/dL (0.3-1.0) 09/30/16 07:00 AST 20 U/L (13-39) 09/30/16 07:00 ALT 21 U/L (7-52) 09/30/16 07:00 Alkaline Phosphatase 82 U/L (34-104) 09/30/16 07:00 Troponin I 0.02 ng/mL (0.01-0.05) 09/29/16 12:10 B-Natriuretic Peptide 213.0 pg/mL (5.0-100.0) H 10/05/16 04:39 Total Protein 6.9 gm/dL (6.0-8.3) 09/30/16 07:00 Albumin 2.9 gm/dL (3.7-5.3) L 09/30/16 07:00 Globulin 4.0 gm/dL 09/30/16 07:00 Albumin/Globulin Ratio 0.7 (1.0-1.8) L 09/30/16 07:00 Triglycerides 307 mg/dL (<150) H 09/29/16 12:10 Cholesterol 83 mg/dL (<200) 09/29/16 12:10 LDL Cholesterol Direct 28 mg/dL (75-193) L 09/29/16 12:10 HDL Cholesterol 55 mg/dL (23-92) 09/29/16 12:10 TSH 2.45 uIU/ml (0.34-5.60) 09/29/16 12:10 Urine Source DONNELLY PORT 10/05/16 09:00 Urine Color YELLOW 10/05/16 09:00 Urine Clarity SL. CLOUDY (CLEAR) 10/05/16 09:00 Urine pH 6.0 10/05/16 09:00 Ur Specific Greer 1.020 (1.005-1.030) 10/05/16 09:00 Urine Protein 30 mg/dL (NEGATIVE) H 10/05/16 09:00 Urine Glucose (UA) NEGATIVE mg/dL (NEGATIVE) 10/05/16 09:00 Urine Ketones NEGATIVE mg/dL (NEGATIVE) 10/05/16 09:00 Urine Blood TRACE (NEGATIVE) 10/05/16 09:00 Urine Nitrate NEGATIVE (NEGATIVE) 10/05/16 09:00 Urine Bilirubin NEGATIVE (NEGATIVE) 10/05/16 09:00 Urine Urobilinogen 0.2 E.U./dL (0.2 - 1.0) 10/05/16 09:00 Ur Leukocyte Esterase TRACE (NEGATIVE) H 10/05/16 09:00 Urine RBC 6-8 /hpf (0-5) 10/05/16 09:00 Urine WBC 10-25 /hpf (0-5) H 10/05/16 09:00 Ur Epithelial Cells OCCASIONAL /lpf (FEW) 10/05/16 09:00 Urine Bacteria OCCASIONAL /hpf (NONE SEEN) 10/05/16 09:00 Amikacin Peak 9.2 ug/mL (20.0-30.0) L 10/04/16 11:00 Amikacin Trough 1.4 ug/mL (1.0-8.0) 10/04/16 09:40 Vancomycin Trough 15.1 ug/mL (10-20) 10/04/16 09:10 RPR NONREACTIVE (NONREACTIVE) 09/29/16 12:10 - Physical Exam Vitals and I&O: Vital Signs Temp 98.5 F 10/06/16 08:00 Pulse 77 10/06/16 11:21 Resp 12 10/06/16 11:00 BP 104/61 10/06/16 11:00 Pulse Ox 100 10/06/16 11:21 Intake & Output 10/05/16 10/06/16 10/06/16 18:59 06:59 18:59 Intake Total 652 2152 250 Output Total 1080 500 Balance -428 1652 250 Weight (lbs) 62.823 kg Intake: Intake, IV Amount 402 2152 250 Amikacin 500 mg In 102 102 Dextrose 5% 100 ml @ 200 mls/hr IV Q12H [facility] Rx#: [id number] Cefepime 1 gm In Sodium 50 50 Chloride 0.9% 50 ml @ 100 mls/hr IV Q12H [facility] Rx#: [id number] Sodium Chloride 0.45% 1, 2000 000 ml @ 50 mls/hr IV . Q20H [facility] Rx#:[id number] Vancomycin HCl 1.25 gm In 250 250 Sodium Chloride 0.9% 250 ml @ 165 mls/hr IV Q24H [facility] Rx#:[id number] Tube Feeding 250 Output: Gastric Drainage 0 Urine 1080 500 Other: # Bowel Movements 2 0 Active Medications: Current Medications Acetaminophen (Tylenol 650mg/20.3ml Suspension) 650 mg GT Q6HR PRN PRN Reason: Fever > 101 Stop: 12/02/16 10:33 Last Admin: 10/05/16 05:00 Dose: 650 mg Acetylcysteine (Mucomyst 20%) 3 ml HHN Q8HRT [facility] Stop: 12/01/16 22:59 Last Admin: 10/06/16 07:22 Dose: 3 ml Albuterol Sulfate (Albuterol 2.5mg/3ml Neb Ud) 2.5 mg HHN Q4HRT [facility] Stop: 11/28/16 18:59 Last Admin: 10/06/16 11:20 Dose: 2.5 mg Amiodarone HCl (Cordarone) 200 mg PO DAILY [facility] Stop: 12/02/16 08:59 Last Admin: 10/06/16 09:08 Dose: 200 mg Amlodipine Besylate (Norvasc) 5 mg GT DAILY [facility] Stop: 11/29/16 08:59 Last Admin: 10/06/16 09:11 Dose: Not Given Ascorbic Acid (Vitamin C) 500 mg GT DAILY [facility] Stop: 11/29/16 08:59 Last Admin: 10/06/16 09:02 Dose: 500 mg Chlorhexidine Gluconate (Peridex) 15 ml MM BID [facility] Stop: 12/01/16 16:59 Last Admin: 10/06/16 09:03 Dose: 15 ml Cyclobenzaprine HCl (Flexeril) 5 mg GT DAILY [facility] Stop: 11/29/16 08:59 Last Admin: 03/17/17 08:56 Dose: 5 mg Ferrous Sulfate (Iron) 330 mg GT BID [facility] Stop: 11/28/16 17:19 Last Admin: 10/06/16 08:56 Dose: 330 mg Furosemide (Lasix) 20 mg IVP DAILY [facility] Stop: 12/04/16 08:59 Last Admin: 10/06/16 09:11 Dose: 20 mg Sodium Chloride (Nacl 0.45%) 1,000 mls @ 50 mls/hr IV .Q20H [facility] Stop: 12/02/16 09:29 Last Infusion: 10/06/16 05:29 Dose: Infused Cefepime HCl 1 gm/ Sodium (Chloride) 50 mls @ 100 mls/hr IV Q12H [facility] Stop: 12/03/16 22:59 Last Admin: 10/06/16 12:18 Dose: 100 mls/hr Vancomycin HCl 1.25 gm/ Sodium (Chloride) 250 mls @ 165 mls/hr IV Q24H [facility] Stop: 12/04/16 08:59 Last Infusion: 10/06/16 10:30 Dose: Infused Amikacin Sulfate 500 mg/ (Dextrose) 102 mls @ 200 mls/hr IV Q12H [facility] Stop: 12/04/16 09:59 Last Admin: 10/06/16 11:09 Dose: 200 mls/hr Ipratropium Yarnell (Atrovent Neb 0.5mg/2.5ml) 0.5 mg HHN Q4HRT [facility] Stop: 11/28/16 18:59 Last Admin: 10/06/16 11:20 Dose: 0.5 mg Lactobacillus Rhamnosus (Culturelle) 1 each PO DAILY [facility] Stop: 11/30/16 08:59 Last Admin: 10/06/16 08:59 Dose: 1 each Miscellaneous (Vancomycin Iv Per Pharmacy) 1 ea PRN PRN PRN Reason: PROTOCOL Stop: 11/28/16 21:01 Miscellaneous (Probiotic Screen) 1 ea PRN PRN PRN Reason: PROTOCOL Stop: 11/29/16 14:15 Miscellaneous (Amikacin Iv Per Pharmacy) 1 [facility] PRN PRN PRN Reason: PROTOCOL Stop: 12/01/16 18:02 Ondansetron HCl (Zofran Odt) 4 mg PO Q6HR PRN PRN Reason: Nausea / Vomiting Pantoprazole Sodium (Protonix) 40 mg GT DAILY [facility] Stop: 11/29/16 08:59 Last Admin: 10/06/16 08:59 Dose: 40 mg Polyethylene Glycol (Miralax) 17 gm PO BID PRN PRN Reason: Constipation Stop: 11/28/16 17:19 Potassium Chloride (Potassium Chloride Elixir) 10 meq GT DAILY [facility] Stop: 11/29/16 08:59 Last Admin: 10/06/16 09:01 Dose: 10 meq Tramadol HCl (Ultram) 50 mg GT Q8HRT PRN PRN Reason: Pain (Moderate) Stop: 11/28/16 17:19 Last Admin: 10/01/16 00:55 Dose: 50 mg - Procedures Procedures: Procedures Procedure Code Date RESPIRATORY VENTILATION, GREATER THAN 96 CONSECUTIVE HOURS [id number] 09/29/16 VENT MGMT INPAT INIT DAY 09/29/16 VENT MGMT INPAT SUBQ DAY 09/29/16 Nutritional Asmnt/Malnutr-PDOC - Dietary Evaluation Malnutrition Findings (Please click <Entered> for more info): Nutritional Asmnt/Malnutrition Start: 09/30/16 09: 36 Text: Status: Complete Freq: Document 09/30/16 09:36 MMULIVANIA (Rec: 09/30/16 09:58 MMULHERJermaine MCLEAN- [email or web address]) Nutritional Asmnt/Malnutrition Patient General Information Nutritional Screening High Risk Screening Diagnosis Pneumonia, leukocytosis ( Reason for visit) Pertinent Medical Hx/Surgical Hx Per nursing notes, CVA Subjective Information Patient was admitted from SNF with trach and G Tube. History of dysphagia with G tube feedings. Tube feeding at SNF is [facility] at 60ml/hr x 20 hours. This provides 1200 ml volume, 1800 kcal, 81 gm protein. Current Diet Order/ Nutrition Support Nutren Pulmonary at 60ml/hr, free water flush 100ml q6 hr. Prosource 1/day. Patient / S.O Not Indicated Pertinent Medications vitamin C, iron, lasix, vancomycin, zofran, protonix, miralax, K clor Pertinent Labs (09/30)Albumin 2.9, TAG 307 Nutritional Hx/Data Height 1.55 m Height (Calculated Centimeters) 154.9 Current Weight (lbs) 56.699 kg Weight (Calculated Kilograms) 56.7 Weight (Calculated Grams) 70901.0 [place] Body Weight 105lb % [place] Body Weight 119 Recent Weight Change No Weight Status Approriate GI Symptoms Difficult in: Swallowing Food Allergies No Cultural/Ethnic/Yazdanism Belief None indicated Usual diet at home Tube feeding Skin Integrity/Comment: 1+ pitting edema in foot/sierra, intact, Simone 14 Current %PO Tube feedi Estimated Nutritional Goals BEE in Kcals: Using Current wt Calories/Kcals/Kg 25-30 kcal/kg Kcals Calculated 3261-7691 kcal/day Protein: Using Current wt Protein g/k.2-1.5 gm/kg Protein Calculated 68-85 gm/day Fluid: ml 1774-3154 ml/day Nutritional Problem 1. Problem Problem Excessive enteral infusion related to Etiology high tube feeding rate aeb Signs/Symptoms: current regimen meeting 130% of upper end calorie needs and 115% of upper end protein needs. Intervention/Recommendation Recommendations by RD Decrease Calorie Intake Comments Current tube feeding regimen provides 2220 kcal/day, 98 gm protein (113gm with prosource) 1523 ml free water with flushes. (>130% of estimated nutrient needs). 1. Decrease tube feeding rate to 45 ml/hr (Nutren Pulmonary) plus Prosource 1 packet/day. Continue cristofer water flush 100ml every 6 hours. Expected Outcomes/Goals Expected Outcomes/Goals patient meet 75-115% of estimated nutrient needs, weight remains stable, labs remain normal, skin remains intact. Physician Parameters for PEM Serum Albumin (g/dl) 2.4 - 3.0 (Moderate)
--- NOTE | 2016-10-06 15:18 | Operative Report ---
INPATIENT GASTROINTESTINAL PROCEDURE PROCEDURE: G-tube change. REFERRING PHYSICIAN: Dr. Causey. CONSENT: Risks, benefits, alternatives, nature, indication, possible outcomes were discussed. Mentioned bleeding, infection, perforation, , disability, cardiopulmonary distress and arrest, missed lesion and cancers, need for surgery, cellulitis, malfunctioning feeding tube. The patient's son expressed understanding and provided informed consent. PREOPERATIVE DIAGNOSIS: Malfunctioning G-tube, more specifically staff was trying to infuse feeding material through the G-tube and was getting quite a bit resistant thought that was clogged and needed to have a G-tube change. POSTOPERATIVE DIAGNOSES: Malfunctioning G-tube located superficial and the internal stomach lumen has already closed. MEDICATIONS: None. DESCRIPTION OF PROCEDURE: The patient was placed on her back. The old G-tube which was an original PEG tube was identified and pulled out. It seemed to be quite superficial. The bumper was likely buried in the subcutaneous tissue and was not in the stomach lumen. At this point, a 20-Telugu gastrostomy tube was attempted to be inserted, but it would not enter into the stomach lumen. We tried with a 16-Telugu Carrillo and it too was not entering into stomach lumen. 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 COMPLICATIONS: None. FINDINGS: Gastric hole ____. PLAN: 1. We will need an original PEG tube when the patient is improved. 2. Keep the patient n.p.o. 3. TPN in the meantime. Thank you for allowing me to participate. Please call me if any questions. JOB# [id number]
[2016-10-06] MEDS: Sodium Chloride 0.9% 250 ML IV SCH (16:49)
[2016-10-06] MEDS: Amino Acids 3% / Electrolytes 1,000 ML IV SCH (16:49)
[2016-10-06] MEDS: Budesonide 0.5 Mg/2 mL Ud HHN SCH (19:52)
--- NOTE | 2016-10-06 22:20 | Consultation ---
REFERRING PHYSICIAN: Dr. Causey. REASON FOR CONSULTATION: Malfunctioning G-tube, dysphagia. HISTORY OF PRESENT ILLNESS: An 86-year-old female who has respiratory failure, currently in the ICU, G-tube is not working per staff and therefore, ____ the patient to consider replacing and the patient is, otherwise, a poor historian. PAST MEDICAL HISTORY: Respiratory failure, dysphagia, stroke, DJD. PAST SURGICAL HISTORY: Trach and PEG. FAMILY HISTORY: Noncontributory. SOCIAL HISTORY: No tobacco, alcohol or IV drug usage. ALLERGIES: None. CURRENT MEDICATIONS: Tylenol, Mucomyst, amikacin, Norvasc, Cordarone, cefepime, peridex, Flexeril, iron, Lasix, vancomycin, Zofran, Protonix, MiraLax, Ultram. REVIEW OF SYSTEMS: Unobtainable. PHYSICAL EXAMINATION: VITAL SIGNS: Temperature is 98.5, breathing 12, pulse is 77, blood pressure is 104/61, satting 100%. GENERAL: In no apparent distress. EYES: Anicteric, normal conjunctivae. HEENT: Normocephalic, atraumatic. Moist mucous membranes. NECK: Soft and trached. CHEST: Coarse breath sounds. CARDIOVASCULAR: Regular rate and rhythm. ABDOMEN: Soft, nontender, nondistended with a G-tube. SKIN: Warm, dry. EXTREMITIES: Reveal no cyanosis. LABORATORY DATA: Show white count 14.5, hemoglobin 9, platelets of 202. INR is 1.06. IMPRESSION: An 86-year-old female with malfunctioning G-tube that is clogged, G-tube has been in for approximately 4 months per the patient's family members, they were explained the need for the change of G-tube and ____have occurring. PLAN: G-tube would be changed at bedside by traction method and replace with another gastrostomy tube. Thank you for allowing me to participate. Please call me if any questions. JOB# [id number]
--- NOTE | 2016-10-06 22:57 | Consultation ---
INFECTIOUS DISEASE CONSULTATION HISTORY OF PRESENT ILLNESS: This is an 86-year-old female who was brought to the Emergency Room from a fdc with low blood pressure. HISTORY OF PRESENT ILLNESS: The patient lives in a fdc, was found to have following blood pressure. The patient was brought to Emergency Room at [facility] where the patient was evaluated and admitted to ICU. Workup shows pneumonia. The patient was seen by Pulmonary. Antibiotic started. Sputum cultures are positive for MRSA. Infectious disease consultation was called for further treatment. Antibiotic adjusted. The patient's examination was possible. PAST MEDICAL HISTORY: Chronic anemia, CVA, hypertension, coronary artery disease, and tracheostomy. FAMILY HISTORY: Negative. Nonsmoker. ALLERGIES: None. REVIEW OF SYSTEMS: Limited because of the patient's dementia and previous stroke. No fall, trauma, bleeding, HIV, or hepatitis. Rest of the review of systems unable to obtain. PHYSICAL EXAMINATION: GENERAL: Well-nourished female. VITAL SIGNS: Temperature 97.2, pulse 78, respiration 12, and blood pressure 129/60. HEENT: Mild pallor. No icterus. No plaque. NECK: Supple. LUNGS: Breath sounds bilateral vesicular. CARDIOVASCULAR: S1, S2. ABDOMEN: Soft. Bowel sounds present. Tracheostomy present. No thyromegaly. No cervical lymph nodes. EXTREMITIES: Sacral decubitus, muscle hypertrophy. Osteoarthritic changes present. LABORATORY DATA: No thyromegaly, no cervical lymph nodes. Tracheostomy site not bleeding. Sputum culture positive for pseudomonas and MRSA sensitivity noted. Blood cultures have been negative. White count 16,000, hemoglobin is 9 g, and platelets 248,000. Chest x-ray shows infiltrates. DIAGNOSES: Pneumonitis, respiratory failure, coronary artery disease, old cerebrovascular accident, and hypertension. PLAN: The patient was started on amikacin, vancomycin, and Maxipime supportive care. Rest of the care as ordered in CPOE. Contact isolation. Thank you, Dr. Causey for this consultation. JOB# [id number]
[2016-10-07] MEDS: Albuterol Nebulizer 2.5mg/3mL HHN SCH ×6 (03:04→22:46)
[2016-10-07] MEDS: Ipratropium Neb 0.5 mg/2.5 mL UD HHN SCH ×5 (03:05→22:46)
[2016-10-07 05:38] LABS: % BASOPHILS 0.4 % (0.0-2.0); % EOSINOPHILS 2.5 % (0.0-5.0); % LYMPHOCYTES 9.8 % (20.0-50.0); % MONOCYTES 6.7 % (2.0-10.0); % NEUTROPHILS 80.6 % (40.0-80.0); ANION GAP 10.1 (7.0-16.0); BUN - UREA NITROGEN 25 mg/dL (7-25); CALCIUM SERUM 9.1 mg/dL (8.6-10.3); CARBON DIOXIDE 21.7 mEq/L (21.0-31.0); CHLORIDE 103 mEq/L (98-107); CREATININE - SERUM 0.5 mg/dL (0.6-1.2); GLUCOSE 125 mg/dL (70-105); HEMOGLOBIN 8.6 gm/dL (11.7-16.1); MAGNESIUM 2.2 mg/dL (1.9-2.7); MEAN CELL VOLUME 94.6 fl (81-100); MEAN CORPUSCULAR HEMOGLOBIN 32.4 pg (27.0-31.0); MEAN CORPUSCULAR HGB CONC 34.3 pg (28.0-36.0); MEAN PLATELET VOLUME 7.7 fl; NEUTROPHILE ABSOLUTE 7.5 Th/cmm (1.8-8.0); PHOSPHOROUS 2.8 mg/dL (2.5-5.0); PLATELET COUNT 184 Th/cmm (150-400); POTASSIUM SERUM 3.8 mEq/L (3.5-5.1); RED BLOOD COUNT 2.64 Mil/cmm (3.80-5.20); RED CELL DISTRIBUTION WIDTH 13.2 % (11.5-20.0); SODIUM SERUM 131 mEq/L (136-145)
[2016-10-07 05:40] LABS: WHITE BLOOD COUNT 9.2 Th/cmm (4.8-10.8)
[2016-10-07] MEDS: Budesonide 0.5 Mg/2 mL Ud HHN SCH ×2 (07:25→19:00)
[2016-10-07] MEDS: Potassium Chloride Elixir 20 mEq /15 mL UDC GT SCH (09:00)
[2016-10-07] MEDS: Ferrous Sulfate 300 MG/5 ML UDC GT SCH ×2 (09:00→16:36)
[2016-10-07] MEDS: Ascorbic Acid 500 mg/5 mL UDC GT SCH (09:00)
[2016-10-07] MEDS: Lactobacillus Rhamnosus 10 Billion CFU Capsule PO SCH (09:00)
[2016-10-07] MEDS: Pantoprazole 40 mg/Packet GT SCH (09:00)
[2016-10-07] MEDS: Chlorhexidine Gluconate 0.12% 15mL Mouthwash MM SCH ×2 (09:00→21:12)
--- NOTE | 2016-10-07 09:18 | Diagnostic Imaging Report ---
CHEST X-RAY: AP view INDICATION: NG tube placement COMPARISON: Chest x-ray 10/04/2016 FINDINGS: Tracheostomy tube is stable. 2 views were obtained at 17:54 and 18:35. NG tube is seen with tip in the stomach. Chronic lung changes are seen with increased left basal lung markings. Cardiomegaly is noted. IMPRESSION: NG tube within the stomach. Chronic lung changes and increased left basal lung markings which may be due to atelectasis or may be chronic in etiology. No focal consolidation is identified. Cardiomegaly.
[2016-10-07] MEDS: Cefepime 1 gm in 0.9% NS 50 mL IV SCH ×2 (10:55→22:43)
[2016-10-07] MEDS: Amino Acids 3% / Electrolytes 1,000 ML IV SCH (10:59)
[2016-10-07] MEDS: Sodium Chloride 0.9% 250 ML IV SCH (15:21)
[2016-10-07] MEDS: MULTIVITAMIN IV SCH (15:22)
[2016-10-07] MEDS: AMINO ACIDS IV SCH (15:22)
[2016-10-07] MEDS: DEXT 10% IV SCH (15:22)
[2016-10-08] MEDS: Ipratropium Neb 0.5 mg/2.5 mL UD HHN SCH ×6 (03:32→23:15)
[2016-10-08] MEDS: Albuterol Nebulizer 2.5mg/3mL HHN SCH ×6 (03:32→23:15)
[2016-10-08 05:02] LABS: % BASOPHILS 0.2 % (0.0-2.0); HEMATOCRIT 26.2 % (35.0-45.0); HEMOGLOBIN 9.1 gm/dL (11.7-16.1); MEAN PLATELET VOLUME 7.6 fl; WHITE BLOOD COUNT 10.5 Th/cmm (4.8-10.8)
[2016-10-08 05:19] LABS: % EOSINOPHILS 1.6 % (0.0-5.0); % LYMPHOCYTES 12.6 % (20.0-50.0); % MONOCYTES 6.3 % (2.0-10.0); % NEUTROPHILS 79.3 % (40.0-80.0); MEAN CELL VOLUME 95.8 fl (81-100); MEAN CORPUSCULAR HEMOGLOBIN 33.5 pg (27.0-31.0); MEAN CORPUSCULAR HGB CONC 34.9 pg (28.0-36.0); NEUTROPHILE ABSOLUTE 8.3 Th/cmm (1.8-8.0); RED BLOOD COUNT 2.73 Mil/cmm (3.80-5.20); RED CELL DISTRIBUTION WIDTH 13.7 % (11.5-20.0)
[2016-10-08 05:29] LABS: ANION GAP 8.5 (7.0-16.0); BUN - UREA NITROGEN 23 mg/dL (7-25); BUN/CREATININE RATIO 38.3; CALCIUM SERUM 9.2 mg/dL (8.6-10.3); CARBON DIOXIDE 23.1 mEq/L (21.0-31.0); CHLORIDE 104 mEq/L (98-107); CREATININE - SERUM 0.6 mg/dL (0.6-1.2); GLUCOSE 135 mg/dL (70-105); POTASSIUM SERUM 3.6 mEq/L (3.5-5.1); SODIUM SERUM 132 mEq/L (136-145)
[2016-10-08 05:39] LABS: PLATELET COUNT 221 Th/cmm (150-400)
[2016-10-08] MEDS: Budesonide 0.5 Mg/2 mL Ud HHN SCH ×2 (07:56→19:25)
[2016-10-08] MEDS: Chlorhexidine Gluconate 0.12% 15mL Mouthwash MM SCH ×2 (08:48→16:55)
[2016-10-08] MEDS: Ascorbic Acid 500 mg/5 mL UDC GT SCH (08:48)
[2016-10-08] MEDS: Ferrous Sulfate 300 MG/5 ML UDC GT SCH ×2 (08:48→16:55)
[2016-10-08] MEDS: Potassium Chloride Elixir 20 mEq /15 mL UDC GT SCH (08:48)
[2016-10-08] MEDS: Lactobacillus Rhamnosus 10 Billion CFU Capsule PO SCH (08:49)
[2016-10-08] MEDS: Pantoprazole 40 mg/Packet GT SCH (08:49)
[2016-10-08] MEDS: Cefepime 1 gm in 0.9% NS 50 mL IV SCH ×2 (10:34→23:46)
--- NOTE | 2016-10-08 14:49 | Infectious Disease Prog Note ---
Infectious Disease Subjective - Review of Systems Service Date: 10/08/16 Subjective: cc pn mrsa/mrpa hpi- pt schedule for peg sunday ros no fever o/e vss chaest vesicular ab dsoft ext no edema dx pn uti plan continue vancp maxipime amikacin Infectious Disease Objective - Results Result Diagrams: 10/08/16 04:30 10/08/16 04:30 Recent Labs: Laboratory Last Values WBC 10.5 Th/cmm (4.8-10.8) 10/08/16 04:30 RBC 2.73 Mil/cmm (3.80-5.20) L 10/08/16 04:30 Hgb 9.1 gm/dL (11.7-16.1) L 10/08/16 04:30 Hct 26.2 % (35.0-45.0) L 10/08/16 04:30 MCV 95.8 fl (81-100) 10/08/16 04:30 MCH 33.5 pg (27.0-31.0) H 10/08/16 04:30 MCHC Differential 34.9 pg (28.0-36.0) 10/08/16 04:30 RDW 13.7 % (11.5-20.0) 10/08/16 04:30 Plt Count 221 Th/cmm (150-400) D 10/08/16 04:30 MPV 7.6 fl 10/08/16 04:30 Neutrophils % 79.3 % (40.0-80.0) 10/08/16 04:30 Band Neutrophils % 2 % (0-10) 10/06/16 04:35 Lymphocytes % 12.6 % (20.0-50.0) L 10/08/16 04:30 Monocytes % 6.3 % (2.0-10.0) 10/08/16 04:30 Eosinophils % 1.6 % (0.0-5.0) 10/08/16 04:30 Basophils % 0.2 % (0.0-2.0) 10/08/16 04:30 Neutrophils (Manual) 77 % (40-80) 10/06/16 04:35 Lymphocytes 13 % (20-50) L 10/06/16 04:35 Monocytes 5 % (2-10) 10/06/16 04:35 Eosinophils 3 % (0-5) 10/06/16 04:35 Basophils 1 % (0-3) 10/04/16 04:48 Metamyelocytes 2 % (0-0) H 10/05/16 04:39 Platelet Estimate ADEQUATE (NORMAL) 10/06/16 04:35 Platelet Morphology NORMAL (NORMAL) 10/06/16 04:35 Polychromasia 1+ 10/05/16 04:39 Anisocytosis 1+ 10/05/16 04:39 RBC Morph Micro Appear NORMAL (NORMAL) 10/06/16 04:35 PT 11.0 SECONDS (9.5-11.5) 10/05/16 09:55 INR 1.06 (0.5-1.4) 10/05/16 09:55 PTT (Actin FS) 26.3 SECONDS (26.0-38.0) 10/05/16 09:55 Specimen Source Arterial 10/02/16 08:00 Sample Site Right Radial 10/02/16 08:00 pH 7.51 (7.35-7.45) H 10/02/16 08:00 pCO2 34.0 mmHg (35.0-45.0) L 10/02/16 08:00 pO2 143.0 mmHg (80.0-100.0) H 10/02/16 08:00 HCO3 27.1 mEq/L (20.0-26.0) H 10/02/16 08:00 Base Excess 4.2 mEq/L (-3.0-3.0) H 10/02/16 08:00 O2 Saturation 99.0 % (92.0-100.0) 10/02/16 08:00 Antonio Test YES 10/02/16 08:00 Vent Rate 12 10/02/16 08:00 Inspired O2 30 10/02/16 08:00 Tidal Volume 400 10/02/16 08:00 PEEP 5 10/02/16 08:00 Pressure (ins/psv/peep) NA 10/02/16 08:00 Critical Value SH 10/02/16 08:00 Sodium 132 mEq/L (136-145) L 10/08/16 04:30 Potassium 3.6 mEq/L (3.5-5.1) 10/08/16 04:30 Chloride 104 mEq/L (98-107) 10/08/16 04:30 Carbon Dioxide 23.1 mEq/L (21.0-31.0) 10/08/16 04:30 Anion Gap 8.5 (7.0-16.0) 10/08/16 04:30 BUN 23 mg/dL (7-25) 10/08/16 04:30 Creatinine 0.6 mg/dL (0.6-1.2) 10/08/16 04:30 Est GFR ( Amer) TNP 10/08/16 04:30 Est GFR (Non-Af Amer) TNP 10/08/16 04:30 BUN/Creatinine Ratio 38.3 10/08/16 04:30 Glucose 135 mg/dL (70-105) H 10/08/16 04:30 Calcium 9.2 mg/dL (8.6-10.3) 10/08/16 04:30 Phosphorus 2.8 mg/dL (2.5-5.0) 10/07/16 04:45 Magnesium 2.2 mg/dL (1.9-2.7) 10/07/16 04:45 Total Bilirubin 0.4 mg/dL (0.3-1.0) 09/30/16 07:00 AST 20 U/L (13-39) 09/30/16 07:00 ALT 21 U/L (7-52) 09/30/16 07:00 Alkaline Phosphatase 82 U/L (34-104) 09/30/16 07:00 Troponin I 0.02 ng/mL (0.01-0.05) 09/29/16 12:10 B-Natriuretic Peptide 213.0 pg/mL (5.0-100.0) H 10/05/16 04:39 Total Protein 6.9 gm/dL (6.0-8.3) 09/30/16 07:00 Albumin 2.9 gm/dL (3.7-5.3) L 09/30/16 07:00 Globulin 4.0 gm/dL 09/30/16 07:00 Albumin/Globulin Ratio 0.7 (1.0-1.8) L 09/30/16 07:00 Prealbumin 14 mg/dL (9-32) 10/07/16 04:45 Triglycerides 95 mg/dL (<150) 10/07/16 04:45 Cholesterol 83 mg/dL (<200) 09/29/16 12:10 LDL Cholesterol Direct 28 mg/dL (75-193) L 09/29/16 12:10 HDL Cholesterol 55 mg/dL (23-92) 09/29/16 12:10 TSH 2.45 uIU/ml (0.34-5.60) 09/29/16 12:10 Urine Source DONNELLY PORT 10/05/16 09:00 Urine Color YELLOW 10/05/16 09:00 Urine Clarity SL. CLOUDY (CLEAR) 10/05/16 09:00 Urine pH 6.0 10/05/16 09:00 Ur Specific Williams 1.020 (1.005-1.030) 10/05/16 09:00 Urine Protein 30 mg/dL (NEGATIVE) H 10/05/16 09:00 Urine Glucose (UA) NEGATIVE mg/dL (NEGATIVE) 10/05/16 09:00 Urine Ketones NEGATIVE mg/dL (NEGATIVE) 10/05/16 09:00 Urine Blood TRACE (NEGATIVE) 10/05/16 09:00 Urine Nitrate NEGATIVE (NEGATIVE) 10/05/16 09:00 Urine Bilirubin NEGATIVE (NEGATIVE) 10/05/16 09:00 Urine Urobilinogen 0.2 E.U./dL (0.2 - 1.0) 10/05/16 09:00 Ur Leukocyte Esterase TRACE (NEGATIVE) H 10/05/16 09:00 Urine RBC 6-8 /hpf (0-5) 10/05/16 09:00 Urine WBC 10-25 /hpf (0-5) H 10/05/16 09:00 Ur Epithelial Cells OCCASIONAL /lpf (FEW) 10/05/16 09:00 Urine Bacteria OCCASIONAL /hpf (NONE SEEN) 10/05/16 09:00 Amikacin Peak 37.5 ug/mL (20.0-30.0) H 10/06/16 12:20 Amikacin Trough 11.5 ug/mL (1.0-8.0) H 10/06/16 09:45 Vancomycin Trough 18.4 ug/mL (10-20) 10/07/16 09:00 RPR NONREACTIVE (NONREACTIVE) 09/29/16 12:10 - Physical Exam Vitals and I&O: Vital Signs Temp 97.8 F 10/08/16 12:00 Pulse 77 10/08/16 13:13 Resp 12 10/08/16 12:00 BP 122/59 10/08/16 12:00 Pulse Ox 100 10/08/16 13:13 Intake & Output 10/07/16 10/08/16 10/08/16 18:59 06:59 18:59 Intake Total 3217.799 751.8 401.8 Output Total 1950 850 Balance 1267.799 -98.2 401.8 Weight (lbs) 60.146 kg Intake: Intake, IV Amount 1717.799 151.8 351.8 Amikacin 450 mg In 101.8 101.8 101.8 Dextrose 5% 100 ml @ 100 mls/hr IV Q12HR@1000,2200 REPLACED BY [facility] Rx#:[id number] Amino Acids 3% / 1144.166 Electrolytes 1,000 ml @ 50 mls/hr IV .Q20H REPLACED BY [facility] Rx #:[id number] Cefepime 1 gm In Sodium 0 50 Chloride 0.9% 50 ml @ 100 mls/hr IV Q12H [facility] Rx#: [id number] Sodium Chloride 0.9% 250 221.833 ml @ 10 mls/hr IV Q24H REPLACED BY [facility] Rx#:[id number] Vancomycin HCl 1.25 gm In 250 250 Sodium Chloride 0.9% 250 ml @ 165 mls/hr IV Q24H REPLACED BY [facility] Rx#:[id number] TPN/PPN 1200 600 50 Other 300 Output: Urine 1950 850 Other: # Bowel Movements 0 0 Active Medications: Current Medications Acetaminophen (Tylenol 650mg/20.3ml Suspension) 650 mg GT Q6HR PRN PRN Reason: Fever > 101 Stop: 12/02/16 10:33 Last Admin: 10/05/16 05:00 Dose: 650 mg Acetylcysteine (Mucomyst 20%) 3 ml HHN Q8HRT REPLACED BY [facility] Stop: 12/01/16 22:59 Last Admin: 10/08/16 07:56 Dose: 3 ml Albuterol Sulfate (Albuterol 2.5mg/3ml Neb Ud) 2.5 mg HHN Q4HRT REPLACED BY [facility] Stop: 11/28/16 18:59 Last Admin: 10/08/16 11:01 Dose: 2.5 mg Amiodarone HCl (Cordarone) 200 mg PO DAILY REPLACED BY [facility] Stop: 12/02/16 08:59 Last Admin: 10/08/16 08:47 Dose: 200 mg Amlodipine Besylate (Norvasc) 5 mg GT DAILY [facility] Stop: 11/29/16 08:59 Last Admin: 10/08/16 08:48 Dose: Not Given Ascorbic Acid (Vitamin C) 500 mg GT DAILY [facility] Stop: 11/29/16 08:59 Last Admin: 10/08/16 08:48 Dose: 500 mg Budesonide (Pulmicort) 0.5 mg HHN BIDRT [facility] Stop: 12/05/16 18:59 Last Admin: 10/08/16 07:56 Dose: 0.5 mg Chlorhexidine Gluconate (Peridex) 15 ml MM BID [facility] Stop: 12/01/16 16:59 Last Admin: 10/08/16 08:48 Dose: 15 ml Cyclobenzaprine HCl (Flexeril) 5 mg GT DAILY [facility] Stop: 11/29/16 08:59 Last Admin: 10/08/16 08:48 Dose: 5 mg Ferrous Sulfate (Iron) 330 mg GT BID [facility] Stop: 11/28/16 17:19 Last Admin: 10/08/16 08:48 Dose: 330 mg Furosemide (Lasix) 20 mg IVP DAILY [facility] Stop: 12/04/16 08:59 Last Admin: 10/08/16 08:49 Dose: 20 mg Cefepime HCl 1 gm/ Sodium (Chloride) 50 mls @ 100 mls/hr IV Q12H [facility] Stop: 12/03/16 22:59 Last Admin: 10/08/16 10:34 Dose: 100 mls/hr Vancomycin HCl 1.25 gm/ Sodium (Chloride) 250 mls @ 165 mls/hr IV Q24H [facility] Stop: 12/04/16 08:59 Last Infusion: 10/08/16 10:20 Dose: Infused Sodium Chloride (Nacl 0.9%) 250 mls @ 10 mls/hr IV Q24H [facility] Stop: 12/05/16 14:14 Last Admin: 10/07/16 15:21 Dose: 10 mls/hr Multivitamins/Minerals 10 ml/ (Amino Acids) 1,200 mls @ 50 mls/hr IV .Q24H [facility] Stop: 12/06/16 15:59 Last Admin: 10/07/16 15:22 Dose: 50 mls/hr Amikacin Sulfate 450 mg/ (Dextrose) 101.8 mls @ 100 mls/hr IV Q12HR@1000,2200 REPLACED BY [facility] Stop: 12/06/16 10:59 Last Infusion: 10/08/16 11:45 Dose: Infused Ipratropium Kennedy (Atrovent Neb 0.5mg/2.5ml) 0.5 mg HHN Q4HRT REPLACED BY [facility] Stop: 11/28/16 18:59 Last Admin: 10/08/16 11:01 Dose: 0.5 mg Lactobacillus Rhamnosus (Culturelle) 1 each PO DAILY [facility] Stop: 11/30/16 08:59 Last Admin: 10/08/16 08:49 Dose: 1 each Miscellaneous (Probiotic Screen) 1 [facility] PRN PRN PRN Reason: PROTOCOL Stop: 11/29/16 14:15 Miscellaneous (Amikacin Iv Per Pharmacy) [address] [facility] PRN PRN PRN Reason: PROTOCOL Stop: 12/01/16 18:02 Miscellaneous (Ppn Per Pharmacy) [address] [facility] PRN PRN PRN Reason: PROTOCOL Stop: 12/05/16 13:59 Ondansetron HCl (Zofran Odt) 4 mg PO Q6HR PRN PRN Reason: Nausea / Vomiting Pantoprazole Sodium (Protonix) 40 mg GT DAILY [facility] Stop: 11/29/16 08:59 Last Admin: 10/08/16 08:49 Dose: 40 mg Polyethylene Glycol (Miralax) 17 gm PO BID PRN PRN Reason: Constipation Stop: 11/28/16 17:19 Potassium Chloride (Potassium Chloride Elixir) 10 meq GT DAILY [facility] Stop: 11/29/16 08:59 Last Admin: 10/08/16 08:48 Dose: 10 meq - Procedures Procedures: Procedures Procedure Code Date REMOVAL OF FEEDING DEVICE FROM STOMACH, EXTERNAL APPROACH [id number] 09/29/16 RESPIRATORY VENTILATION, GREATER THAN 96 CONSECUTIVE HOURS [id number] 09/29/16 VENT MGMT INPAT INIT DAY 09/29/16 VENT MGMT INPAT SUBQ DAY 09/29/16 Nutritional Asmnt/Malnutr-PDOC - Dietary Evaluation Malnutrition Findings (Please click <Entered> for more info): Nutritional Asmnt/Malnutrition Start: 09/30/16 09: 36 Text: Status: Complete Freq: Document 09/30/16 09:36 MMULHERN (Rec: 09/30/16 09:58 MIRANDA MCLEAN- [email or web address]) Nutritional Asmnt/Malnutrition Patient General Information Nutritional Screening High Risk Screening Diagnosis Pneumonia, leukocytosis ( Reason for visit) Pertinent Medical Hx/Surgical Hx Per nursing notes, CVA Subjective Information Patient was admitted from [facility] with trach and G Tube. History of dysphagia with G tube feedings. Tube feeding at [facility] is Pulm[facility] at 60ml/hr x 20 hours. This provides 1200 ml volume, 1800 kcal, 81 gm protein. Current Diet Order/ Nutrition Support Nutren Pulmonary at 60ml/hr, free water flush 100ml q6 hr. Prosource 1/day. Patient / S.O Not Indicated Pertinent Medications vitamin C, iron, lasix, vancomycin, zofran, protonix, miralax, K clor Pertinent Labs (09/30)Albumin 2.9, TAG 307 Nutritional Hx/Data Height 1.55 m Height (Calculated Centimeters) 154.9 Current Weight (lbs) 56.699 kg Weight (Calculated Kilograms) 56.7 Weight (Calculated Grams) 90027.0 Thornton Body Weight 105lb % Thornton Body Weight 119 Recent Weight Change No Weight Status Approriate GI Symptoms Difficult in: Swallowing Food Allergies No Cultural/Ethnic/Jain Belief None indicated Usual diet at home Tube feeding Skin Integrity/Comment: 1+ pitting edema in foot/sierra, intact, Simone 14 Current %PO Tube feedi Estimated Nutritional Goals BEE in Kcals: Using Current wt Calories/Kcals/Kg 25-30 kcal/kg Kcals Calculated 8050-9857 kcal/day Protein: Using Current wt Protein g/k.2-1.5 gm/kg Protein Calculated 68-85 gm/day Fluid: ml 7980-2018 ml/day Nutritional Problem 1. Problem Problem Excessive enteral infusion related to Etiology high tube feeding rate aeb Signs/Symptoms: current regimen meeting 130% of upper end calorie needs and 115% of upper end protein needs. Intervention/Recommendation Recommendations by RD Decrease Calorie Intake Comments Current tube feeding regimen provides 2220 kcal/day, 98 gm protein (113gm with prosource) 1523 ml free water with flushes. (>130% of estimated nutrient needs). 1. Decrease tube feeding rate to 45 ml/hr (Nutren Pulmonary) plus Prosource 1 packet/day. Continue cristofer water flush 100ml every 6 hours. Expected Outcomes/Goals Expected Outcomes/Goals patient meet 75-115% of estimated nutrient needs, weight remains stable, labs remain normal, skin remains intact. Physician Parameters for PEM Serum Albumin (g/dl) 2.4 - 3.0 (Moderate)
[2016-10-08] MEDS: Sodium Chloride 0.9% 250 ML IV SCH (15:57)
[2016-10-08] MEDS: AMINO ACIDS IV SCH (16:00)
[2016-10-08] MEDS: MULTIVITAMIN IV SCH (16:00)
[2016-10-08] MEDS: DEXT 10% IV SCH (16:00)
[2016-10-09] MEDS: Ipratropium Neb 0.5 mg/2.5 mL UD HHN SCH ×6 (02:42→22:39)
[2016-10-09] MEDS: Albuterol Nebulizer 2.5mg/3mL HHN SCH ×6 (02:42→22:38)
[2016-10-09 05:05] LABS: HEMATOCRIT 25.8 % (35.0-45.0); HEMOGLOBIN 8.8 gm/dL (11.7-16.1); MEAN CELL VOLUME 93.9 fl (81-100); MEAN CORPUSCULAR HGB CONC 34.1 pg (28.0-36.0); MEAN PLATELET VOLUME 7.3 fl; PLATELET COUNT 233 Th/cmm (150-400); RED BLOOD COUNT 2.75 Mil/cmm (3.80-5.20); RED CELL DISTRIBUTION WIDTH 13.6 % (11.5-20.0)
[2016-10-09 05:14] LABS: INR 1.03 (0.5-1.4); PROTHROMBIN TIME (TEST) 10.7 SECONDS (9.5-11.5)
[2016-10-09 05:24] LABS: ANION GAP 5.5 (7.0-16.0); BUN - UREA NITROGEN 20 mg/dL (7-25); BUN/CREATININE RATIO 33.3; CALCIUM SERUM 9.2 mg/dL (8.6-10.3); CARBON DIOXIDE 25.2 mEq/L (21.0-31.0); CHLORIDE 106 mEq/L (98-107); CREATININE - SERUM 0.6 mg/dL (0.6-1.2); GLUCOSE 139 mg/dL (70-105); MAGNESIUM 2.3 mg/dL (1.9-2.7); PHOSPHOROUS 3.6 mg/dL (2.5-5.0); POTASSIUM SERUM 3.7 mEq/L (3.5-5.1); SODIUM SERUM 133 mEq/L (136-145)
[2016-10-09] MEDS: Budesonide 0.5 Mg/2 mL Ud HHN SCH ×2 (07:24→19:36)
[2016-10-09 08:12] LABS: ALB/GLOB RATIO 0.8 (1.0-1.8); BILIRUBIN,DIRECT 0.15 mg/dL (0.0-0.2); BILIRUBIN,TOTAL 0.7 mg/dL (0.3-1.0)
[2016-10-09 09:10] LABS: ANISOCYTOSIS 1+; BAND NEUTROPHILE 3 % (0-10); EOSINOPHIL 3 % (0-5); NEUTROPHILS 77 % (40-80); PLATELET ESTIMATE ADEQUATE (NORMAL); PLATELET MORPHOLOGY NORMAL (NORMAL); TOTAL CELLS COUNTED 100
[2016-10-09] MEDS: Chlorhexidine Gluconate 0.12% 15mL Mouthwash MM SCH ×2 (09:12→16:43)
[2016-10-09] MEDS: Ascorbic Acid 500 mg/5 mL UDC GT SCH (09:13)
[2016-10-09] MEDS: Potassium Chloride Elixir 20 mEq /15 mL UDC GT SCH (09:14)
[2016-10-09] MEDS: Pantoprazole 40 mg/Packet GT SCH (09:14)
[2016-10-09] MEDS: Lactobacillus Rhamnosus 10 Billion CFU Capsule PO SCH (09:14)
[2016-10-09] MEDS: Ferrous Sulfate 300 MG/5 ML UDC GT SCH ×2 (09:14→16:43)
[2016-10-09] MEDS: Cefepime 1 gm in 0.9% NS 50 mL IV SCH ×2 (11:30→22:53)
--- NOTE | 2016-10-09 11:46 | Diagnostic Imaging Report ---
Portable chest x-ray HISTORY: Shortness of breath Compared with prior exam of October 06, 2016, the heart remains enlarged. No definite focal pulmonary parenchymal processes are seen. No other changes. An NG tube extends below the diaphragm. IMPRESSION: 1. No change from October 06, 2016 2. No focal pulmonary processes 3. Cardiomegaly. A degree of congestive heart failure without fernando pulmonary edema cannot be excluded. Clinical correlation is needed.
[2016-10-09] MEDS ORDERED: Lidocaine 2% Gel 5 mL TP ONE (12:32)
--- NOTE | 2016-10-09 14:33 | Operative Report ---
INPATIENT GASTROINTESTINAL PROCEDURE PROCEDURE: PEG tube placement. REFERRING PHYSICIAN: Dr. Causey. REASON FOR PROCEDURE: Dysphagia, malfunctioning G-tube. CONSENT: Risks, benefits, alternatives, nature, indication, possible outcomes were discussed. Mentioned bleeding, infection, perforation, , disability, cardiopulmonary distress and arrest, missed lesion and cancers, need for surgery, cellulitis, patient pulling out the feeding tube and malfunctioning of feeding tube. The patient's family expressed understanding and provided informed consent. PREOPERATIVE DIAGNOSES: Malfunctioning G-tube, dysphagia. POSTOPERATIVE DIAGNOSIS: PEG tube placement. MEDICATIONS: Provided by anesthesiologist. DESCRIPTION OF PROCEDURE: The patient was placed on her back. Upper gastroscope advanced from mouth to second portion of duodenum. Scope brought in back the stomach. Retroflexion view of fundus, cardia, lesser curvature. Scope was then straightened. NG tube was removed. Stomach was insufflated. Transillumination was seen in an area adjacent to the original PEG tube site. We tried to pass the wire through the original PEG tube site, but it would not go. The area had been prepped in the usual sterile fashion, 3 mL of 1% lidocaine were used to anesthetize the area. Trocar was advanced from the anterior abdominal wall, entering stomach lumen. On endoscope view, wire was passed through the trocar, captured with a snare, pulled out to the oral end of the patient. PEG tube was attached to the oral end of the wire. Small lateral incision was made at the entry site of the trocar. Wire was pulled into position pulling along with the PEG tube. Gastroscope readvanced back into the stomach where the bumper was seen in satisfactory position. Scope was then removed. COMPLICATIONS: None. FINDINGS: PEG tube placement. RECOMMENDATIONS: 1. Use G-tube in 8 hours. 2. Check residual every 6 hours and hold if greater than 100 mL. 2. Abdominal binder to protect the G-tube. Thank you for allowing me to participate. Please call me if you have any questions. JOB# [id number]
[2016-10-09] MEDS ORDERED: [UNRECOGNIZED DRUG - OTHER] IV SCH (15:00)
[2016-10-09] MEDS ORDERED: MULTIVITAMIN IV SCH (15:00)
[2016-10-09] MEDS ORDERED: AMINO ACIDS IV SCH (15:00)
[2016-10-09] MEDS ORDERED: DEXTROSE IV SCH (15:00)
--- NOTE | 2016-10-09 16:31 | Diagnostic Imaging Report ---
Portable chest x-ray HISTORY: Shortness of breath, vascular catheter placement Compared with the prior exam performed earlier in the day (0903 hours), a left-sided vascular catheter is noted with the tip in the region of the superior vena cava at the junction with the left brachiocephalic vein. The heart remains enlarged. No focal pulmonary processes are seen. IMPRESSION: 1. New vascular catheter placement as noted above 2. No change in the cardiopulmonary status
[2016-10-09] MEDS: Sodium Chloride 0.9% 250 ML IV SCH (16:43)
[2016-10-09] MEDS ORDERED: Morphine Sulfate 2 mg/mL 1mL Syr IVP PRN ×2 (17:49→18:44)
[2016-10-10] MEDS: Ipratropium Neb 0.5 mg/2.5 mL UD HHN SCH ×7 (03:02→22:52)
[2016-10-10] MEDS: Albuterol Nebulizer 2.5mg/3mL HHN SCH ×6 (03:02→22:52)
[2016-10-10 04:58] LABS: MEAN CELL VOLUME 91.5 fl (81-100); MEAN CORPUSCULAR HEMOGLOBIN 31.3 pg (27.0-31.0); MEAN CORPUSCULAR HGB CONC 34.2 pg (28.0-36.0); MEAN PLATELET VOLUME 7.2 fl; PLATELET COUNT 194 Th/cmm (150-400); RED BLOOD COUNT 2.56 Mil/cmm (3.80-5.20); RED CELL DISTRIBUTION WIDTH 13.7 % (11.5-20.0)
[2016-10-10 05:13] LABS: HEMATOCRIT 23.4 % (35.0-45.0); WHITE BLOOD COUNT 12.2 Th/cmm (4.8-10.8)
[2016-10-10 05:16] LABS: ANION GAP 2.6 (7.0-16.0); BUN - UREA NITROGEN 24 mg/dL (7-25); CALCIUM SERUM 8.8 mg/dL (8.6-10.3); CARBON DIOXIDE 25.9 mEq/L (21.0-31.0); CHLORIDE 108 mEq/L (98-107); CREATININE - SERUM 0.6 mg/dL (0.6-1.2); GLUCOSE 136 mg/dL (70-105); MAGNESIUM 2.3 mg/dL (1.9-2.7); PHOSPHOROUS 3.4 mg/dL (2.5-5.0); POTASSIUM SERUM 3.5 mEq/L (3.5-5.1); SODIUM SERUM 133 mEq/L (136-145)
[2016-10-10 06:06] LABS: ANISOCYTOSIS 1+; BAND NEUTROPHILE 2 % (0-10); BASOPHIL 1 % (0-3); EOSINOPHIL 1 % (0-5); NEUTROPHILS 84 % (40-80); PLATELET ESTIMATE ADEQUATE (NORMAL); PLATELET MORPHOLOGY GIANT PLATELETS SEEN (NORMAL); POLYCHROMASIA 1+; TOTAL CELLS COUNTED 100
[2016-10-10] MEDS: Budesonide 0.5 Mg/2 mL Ud HHN SCH ×2 (07:55→18:57)
[2016-10-10] MEDS: Ferrous Sulfate 300 MG/5 ML UDC GT SCH ×2 (08:41→16:13)
[2016-10-10] MEDS: Chlorhexidine Gluconate 0.12% 15mL Mouthwash MM SCH ×2 (08:42→16:13)
[2016-10-10] MEDS: Lactobacillus Rhamnosus 10 Billion CFU Capsule PO SCH (08:43)
[2016-10-10] MEDS: Pantoprazole 40 mg/Packet GT SCH (08:43)
[2016-10-10] MEDS: Ascorbic Acid 500 mg/5 mL UDC GT SCH (09:40)
[2016-10-10 10:19] LABS: MEAN CELL VOLUME 93.3 fl (81-100); MEAN CORPUSCULAR HEMOGLOBIN 31.8 pg (27.0-31.0); MEAN CORPUSCULAR HGB CONC 34.1 pg (28.0-36.0); MEAN PLATELET VOLUME 7.8 fl; PLATELET COUNT 191 Th/cmm (150-400); RED BLOOD COUNT 2.47 Mil/cmm (3.80-5.20); RED CELL DISTRIBUTION WIDTH 13.8 % (11.5-20.0)
[2016-10-10 10:21] LABS: HEMOGLOBIN 7.9 gm/dL (11.7-16.1); WHITE BLOOD COUNT 12.1 Th/cmm (4.8-10.8)
[2016-10-10 10:39] LABS: ANISOCYTOSIS 1+; BAND NEUTROPHILE 4 % (0-10); NEUTROPHILS 83 % (40-80); PLATELET ESTIMATE ADEQUATE (NORMAL); PLATELET MORPHOLOGY NORMAL (NORMAL); TOTAL CELLS COUNTED 100
[2016-10-10 10:49] LABS: pH 7.47 (7.35-7.45)
[2016-10-10 10:50] LABS: ABG SOURCE Arterial; ALLEN TEST Positive; FIO2 30; HCO3 25.5 mEq/L (20.0-26.0); MECH RATE 6; MECH VT 400; PS 10
[2016-10-10] MEDS: Cefepime 1 gm in 0.9% NS 50 mL IV SCH ×2 (11:00→22:41)
[2016-10-10 11:11] LABS: HEP B CORE IGM Negative (Negative); HEP C ANTIBODY 0.3 s/co ratio (0.0-0.9)
--- NOTE | 2016-10-10 14:52 | Discharge Summary ---
ADMITTING DIAGNOSES: Shock, bronchitis versus early pneumonia, congestive heart failure, acute on chronic respiratory failure, leukocytosis, urinary tract infection. 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 DISCHARGE DIAGNOSES: Acute on chronic respiratory failure, improved; complex pneumonia with pseudomonas and MRSA positive sputum cultures; mild leukocytosis; status post PEG tube replacement; status post trach replacement; status post shock; status post supraventricular tachycardia; arrhythmia; malfunctioning tracheostomy and malfunctioning G-tube. CONSULTANTS: Dr. Hernandez, Pulmonary; Dr. Ronald Calderon, ID; Dr. Caraballo, GI; Dr. Carreon, General Surgery; Dr. Enma Calderon, Cardiology. MAJOR PROCERES: The patient underwent a trach replacement on 10/06/2016 without complications and a PEG replacement on 10/05/2016. MEDICATIONS ON DISCHARGE: Tylenol 650 mg G-tube q.6 p.r.n. for fever, Mucomyst 3 mL via handheld nebulizer q.8 hours, DuoNeb 2.5 q.4 p.r.n., amikacin per pharmacy per ID's recommendations, amiodarone 200 mg daily, amlodipine 5 mg daily, ascorbic acid 500 mg daily, Pulmicort 0.5 b.i.d., Peridex 15 mL b.i.d., Flexeril 5 mg daily, iron sulfate 330 mg b.i.d., Lasix 20 mg IV push daily, vancomycin per pharmacy per ID's recommendations, Protonix 40 mg via G-tube daily, MiraLax 17 g b.i.d. p.r.n. for constipation, lactobacillus 1 tab p.o. daily. BRIEF HOSPITAL COURSE: This is an 86-year-old [place] Citizen lady with multiple medical problems as delineated above who presented from [facility] with low blood pressure readings. She also had changes in her sensorium from her baseline. On admission, her white count was noted to be 15.3, sodium 131, BUN 56. X-ray showing cardiomegaly with criteria suggestive of CHF and possible bilateral infiltrates. She also had a UA consistent with a UTI. The patient was admitted to ICU and placed on broad-spectrum antibiotics, was kept on a ventilator with her prescribed settings, and was placed on IV fluids. She was pancultured including sputum C and S. The patient underwent the above-mentioned diagnostics and seemed to improve clinically with improvement in her vital signs. She did, however, go into SVT on/or around 10/01/2016 for which a Cardiology consult was obtained. Her sputum and C and S did initially come back positive for pseudomonas and MRSA, and her IV antibiotics were adjusted accordingly. A General Surgical eval was asked for around 10/05/2016 given that her T-tube was not able to be replaced. It had apparently built up scar tissue around her stoma and was not able to be properly removed at bedside. She underwent the tracheostomy replacement on 10/05/2016. Also, her G-tube was noted to be from her admission somewhat clogged, at times working and at times it was not able to be used given back pressure. Therefore, a G-tube replacement was done as noted above. The patient has remained stable since her procedures with a white count fluctuating between 10 and 12. Clinically, her breath sounds are much improved, and her blood pressure and vital signs have remained stable. DISPOSITION: The patient will be transferred back to subacute unit of [facility] under the care of Dr. Pollard. JOB# [id number] CHARI
[2016-10-10] MEDS: Sodium Chloride 0.9% 250 ML IV SCH (15:00)
[2016-10-10] MEDS: Potassium Chloride Elixir 20 mEq /15 mL UDC GT SCH (16:12)
[2016-10-11] MEDS: Ipratropium Neb 0.5 mg/2.5 mL UD HHN SCH ×4 (03:19→15:15)
[2016-10-11] MEDS: Albuterol Nebulizer 2.5mg/3mL HHN SCH ×4 (03:20→15:15)
[2016-10-11 04:58] LABS: HEMATOCRIT 27.4 % (35.0-45.0); HEMOGLOBIN 9.4 gm/dL (11.7-16.1); MEAN CELL VOLUME 91.2 fl (81-100); MEAN CORPUSCULAR HEMOGLOBIN 31.2 pg (27.0-31.0); MEAN CORPUSCULAR HGB CONC 34.2 pg (28.0-36.0); MEAN PLATELET VOLUME 7.3 fl; PLATELET COUNT 173 Th/cmm (150-400); RED CELL DISTRIBUTION WIDTH 14.9 % (11.5-20.0)
[2016-10-11 05:24] LABS: WHITE BLOOD COUNT 14.4 Th/cmm (4.8-10.8)
[2016-10-11 05:26] LABS: ANION GAP 4.3 (7.0-16.0); BUN - UREA NITROGEN 29 mg/dL (7-25); BUN/CREATININE RATIO 41.4; CARBON DIOXIDE 26.5 mEq/L (21.0-31.0); CHLORIDE 107 mEq/L (98-107); CREATININE - SERUM 0.7 mg/dL (0.6-1.2); GLUCOSE 159 mg/dL (70-105); MAGNESIUM 2.3 mg/dL (1.9-2.7); PHOSPHOROUS 2.5 mg/dL (2.5-5.0); POTASSIUM SERUM 3.8 mEq/L (3.5-5.1); SODIUM SERUM 134 mEq/L (136-145)
[2016-10-11] MEDS: Budesonide 0.5 Mg/2 mL Ud HHN SCH (07:45)
[2016-10-11] MEDS: Potassium Chloride Elixir 20 mEq /15 mL UDC GT SCH (08:22)
[2016-10-11] MEDS: Pantoprazole 40 mg/Packet GT SCH (08:25)
[2016-10-11] MEDS: Lactobacillus Rhamnosus 10 Billion CFU Capsule PO SCH (08:25)
[2016-10-11] MEDS: Ferrous Sulfate 300 MG/5 ML UDC GT SCH (08:27)
[2016-10-11] MEDS: Chlorhexidine Gluconate 0.12% 15mL Mouthwash MM SCH (09:18)
[2016-10-11 09:40] LABS: ANISOCYTOSIS 1+; BAND NEUTROPHILE 3 % (0-10); NEUTROPHILS 82 % (40-80); POLYCHROMASIA 1+; TOTAL CELLS COUNTED 100
[2016-10-11 09:41] LABS: PLATELET ESTIMATE ADEQUATE (NORMAL); PLATELET MORPHOLOGY NORMAL (NORMAL)
[2016-10-11] MEDS: Cefepime 1 gm in 0.9% NS 50 mL IV SCH (11:37)
[2016-10-11] MEDS: Ascorbic Acid 500 mg/5 mL UDC GT SCH (12:17)
--- NOTE | 2016-10-11 12:52 | Infectious Disease Prog Note ---
Infectious Disease Subjective - Review of Systems Service Date: 10/11/16 Subjective: cc pn mrsa/mrpa hpi- pt schedule for discharge snf to continue 1 week vanco amikacin d/w stafrf ros no fever o/e vss chaest vesicular ab dsoft ext no edema dx pn uti plan discontinue maxipime aon discharge Infectious Disease Objective - Results Result Diagrams: 10/11/16 04:49 10/11/16 04:49 Recent Labs: Laboratory Last Values WBC 14.4 Th/cmm (4.8-10.8) H 10/11/16 04:49 RBC 3.00 Mil/cmm (3.80-5.20) L 10/11/16 04:49 Hgb 9.4 gm/dL (11.7-16.1) L 10/11/16 04:49 Hct 27.4 % (35.0-45.0) L D 10/11/16 04:49 MCV 91.2 fl (81-100) 10/11/16 04:49 MCH 31.2 pg (27.0-31.0) H 10/11/16 04:49 MCHC Differential 34.2 pg (28.0-36.0) 10/11/16 04:49 RDW 14.9 % (11.5-20.0) 10/11/16 04:49 Plt Count 173 Th/cmm (150-400) 10/11/16 04:49 MPV 7.3 fl 10/11/16 04:49 Neutrophils % 79.3 % (40.0-80.0) 10/08/16 04:30 Band Neutrophils % 3 % (0-10) 10/11/16 04:49 Lymphocytes % 12.6 % (20.0-50.0) L 10/08/16 04:30 Monocytes % 6.3 % (2.0-10.0) 10/08/16 04:30 Eosinophils % 1.6 % (0.0-5.0) 10/08/16 04:30 Basophils % 0.2 % (0.0-2.0) 10/08/16 04:30 Neutrophils (Manual) 82 % (40-80) H 10/11/16 04:49 Lymphocytes 6 % (20-50) L 10/11/16 04:49 Monocytes 9 % (2-10) 10/11/16 04:49 Eosinophils 1 % (0-5) 10/10/16 04:29 Basophils 1 % (0-3) 10/10/16 04:29 Metamyelocytes 2 % (0-0) H 10/05/16 04:39 Platelet Estimate ADEQUATE (NORMAL) 10/11/16 04:49 Platelet Morphology NORMAL (NORMAL) 10/11/16 04:49 Polychromasia 1+ 10/11/16 04:49 Anisocytosis 1+ 10/11/16 04:49 RBC Morph Micro Appear ABNORMAL (NORMAL) 10/11/16 04:49 PT 10.7 SECONDS (9.5-11.5) 10/09/16 04:44 INR 1.03 (0.5-1.4) 10/09/16 04:44 PTT (Actin FS) 26.3 SECONDS (26.0-38.0) 10/05/16 09:55 Specimen Source Arterial 10/10/16 10:27 Sample Site Right Radial 10/10/16 10:27 pH 7.47 (7.35-7.45) H 10/10/16 10:27 pCO2 35.0 mmHg (35.0-45.0) 10/10/16 10:27 pO2 119.0 mmHg (80.0-100.0) H 10/10/16 10:27 HCO3 25.5 mEq/L (20.0-26.0) 10/10/16 10:27 Base Excess 2.0 mEq/L (-3.0-3.0) 10/10/16 10:27 O2 Saturation 99.0 % (92.0-100.0) 10/10/16 10:27 Antonio Test Positive 10/10/16 10:27 Vent Rate 6 10/10/16 10:27 Inspired O2 30 10/10/16 10:27 Tidal Volume 400 10/10/16 10:27 PEEP 5 10/10/16 10:27 Pressure (ins/psv/peep) 10 10/10/16 10:27 Critical Value LZHANG 10/10/16 10:27 Sodium 134 mEq/L (136-145) L 10/11/16 04:49 Potassium 3.8 mEq/L (3.5-5.1) 10/11/16 04:49 Chloride 107 mEq/L (98-107) 10/11/16 04:49 Carbon Dioxide 26.5 mEq/L (21.0-31.0) 10/11/16 04:49 Anion Gap 4.3 (7.0-16.0) L 10/11/16 04:49 BUN 29 mg/dL (7-25) H 10/11/16 04:49 Creatinine 0.7 mg/dL (0.6-1.2) 10/11/16 04:49 Est GFR ( Amer) TNP 10/11/16 04:49 Est GFR (Non-Af Amer) TNP 10/11/16 04:49 BUN/Creatinine Ratio 41.4 10/11/16 04:49 Glucose 159 mg/dL (70-105) H 10/11/16 04:49 POC Glucose 157 MG/DL (70 - 105) H 10/10/16 08:12 Calcium 9.0 mg/dL (8.6-10.3) 10/11/16 04:49 Phosphorus 2.5 mg/dL (2.5-5.0) 10/11/16 04:49 Magnesium 2.3 mg/dL (1.9-2.7) 10/11/16 04:49 Total Bilirubin 0.7 mg/dL (0.3-1.0) 10/09/16 04:44 Direct Bilirubin 0.15 mg/dL (0.0-0.2) 10/09/16 04:44 AST 18 U/L (13-39) 10/09/16 04:44 ALT 17 U/L (7-52) 10/09/16 04:44 Alkaline Phosphatase 66 U/L (34-104) 10/09/16 04:44 Troponin I 0.02 ng/mL (0.01-0.05) 09/29/16 12:10 B-Natriuretic Peptide 212.0 pg/mL (5.0-100.0) H 10/09/16 04:44 Total Protein 7.7 gm/dL (6.0-8.3) 10/09/16 04:44 Albumin 3.3 gm/dL (3.7-5.3) L 10/09/16 04:44 Globulin 4.4 gm/dL 10/09/16 04:44 Albumin/Globulin Ratio 0.8 (1.0-1.8) L 10/09/16 04:44 Prealbumin 14 mg/dL (9-32) 10/07/16 04:45 Triglycerides 95 mg/dL (<150) 10/07/16 04:45 Cholesterol 104 mg/dL (<200) 10/09/16 04:44 LDL Cholesterol Direct 28 mg/dL (75-193) L 09/29/16 12:10 HDL Cholesterol 55 mg/dL (23-92) 09/29/16 12:10 TSH 2.45 uIU/ml (0.34-5.60) 09/29/16 12:10 Urine Source [place] 10/05/16 09:00 Urine Color YELLOW 10/05/16 09:00 Urine Clarity SL. CLOUDY (CLEAR) 10/05/16 09:00 Urine pH 6.0 10/05/16 09:00 Ur Specific [place] 1.020 (1.005-1.030) 10/05/16 09:00 Urine Protein 30 mg/dL (NEGATIVE) H 10/05/16 09:00 Urine Glucose (UA) NEGATIVE mg/dL (NEGATIVE) 10/05/16 09:00 Urine Ketones NEGATIVE mg/dL (NEGATIVE) 10/05/16 09:00 Urine Blood TRACE (NEGATIVE) 10/05/16 09:00 Urine Nitrate NEGATIVE (NEGATIVE) 10/05/16 09:00 Urine Bilirubin NEGATIVE (NEGATIVE) 10/05/16 09:00 Urine Urobilinogen 0.2 E.U./dL (0.2 - 1.0) 10/05/16 09:00 Ur Leukocyte Esterase TRACE (NEGATIVE) H 10/05/16 09:00 Urine RBC 6-8 /hpf (0-5) 10/05/16 09:00 Urine WBC 10-25 /hpf (0-5) H 10/05/16 09:00 Ur Epithelial Cells OCCASIONAL /lpf (FEW) 10/05/16 09:00 Urine Bacteria OCCASIONAL /hpf (NONE SEEN) 10/05/16 09:00 Amikacin Peak 38.4 ug/mL (20.0-30.0) H 10/08/16 12:00 Amikacin Trough 10.5 ug/mL (1.0-8.0) H 10/08/16 09:00 Vancomycin Trough 19.9 ug/mL (10-20) 10/10/16 08:00 RPR NONREACTIVE (NONREACTIVE) 09/29/16 12:10 Hepatitis A IgM Ab Negative (Negative) 10/09/16 04:44 Hep Bs Antigen Negative (Negative) 10/09/16 04:44 Hep B Core IgM Ab Negative (Negative) 10/09/16 04:44 Hepatitis C Antibody 0.3 s/co ratio (0.0-0.9) 10/09/16 04:44 Blood Type AB POSITIVE 10/10/16 13:00 Antibody Screen NEGATIVE 10/10/16 13:00 Crossmatch See Detail 10/10/16 13:00 - Physical Exam Vitals and I&O: Vital Signs Temp 98.3 F 10/11/16 11:54 Pulse 82 10/11/16 11:54 Resp 17 10/11/16 11:54 BP 120/71 10/11/16 11:54 Pulse Ox 98 10/11/16 11:57 Intake & Output 10/10/16 10/11/16 10/11/16 18:59 06:59 18:59 Intake Total 1614.433 731.6 Output Total 980 430 Balance 634.433 301.6 Weight (lbs) 59.602 kg Intake: Intake, IV Amount 624.433 151.6 Amikacin 400 mg In 101.6 101.6 Dextrose 5% 100 ml @ 100 mls/hr IV Q18H [facility] Rx#: [id number] Cefepime 1 gm In Sodium 50 50 Chloride 0.9% 50 ml @ 100 mls/hr IV Q12H [facility] Rx#: [id number] Sodium Chloride 0.9% 250 222.833 ml @ 10 mls/hr IV Q24H [facility] Rx#:[id number] Vancomycin HCl 1.25 gm In 250 Sodium Chloride 0.9% 250 ml @ 165 mls/hr IV Q24H [facility] Rx#:[id number] Oral 0 Tube Feeding 390 480 Blood Product 250 Other 350 100 Output: Urine 980 430 Other: # Bowel Movements 0 0 Active Medications: Current Medications Acetaminophen (Tylenol 650mg/20.3ml Suspension) 650 mg GT Q6HR PRN PRN Reason: Fever > 101 Stop: 12/02/16 10:33 Last Admin: 10/05/16 05:00 Dose: 650 mg Acetylcysteine (Mucomyst 20%) 3 ml HHN Q8HRT [facility] Stop: 12/01/16 22:59 Last Admin: 10/11/16 07:46 Dose: 3 ml Albuterol Sulfate (Albuterol 2.5mg/3ml Neb Ud) 2.5 mg HHN Q4HRT [facility] Stop: 11/28/16 18:59 Last Admin: 10/11/16 11:08 Dose: 2.5 mg Amiodarone HCl (Cordarone) 200 mg PO DAILY [facility] Stop: 12/02/16 08:59 Last Admin: 10/11/16 08:29 Dose: 200 mg Amlodipine Besylate (Norvasc) 5 mg GT DAILY [facility] Stop: 11/29/16 08:59 Last Admin: 10/11/16 08:09 Dose: 5 mg Ascorbic Acid (Vitamin C) 500 mg GT DAILY [facility] Stop: 11/29/16 08:59 Last Admin: 10/11/16 12:17 Dose: Not Given Budesonide (Pulmicort) 0.5 mg HHN BIDRT [facility] Stop: 12/05/16 18:59 Last Admin: 10/11/16 07:45 Dose: 0.5 mg Chlorhexidine Gluconate (Peridex) 15 ml MM BID [facility] Stop: 12/01/16 16:59 Last Admin: 10/11/16 09:18 Dose: 15 ml Cyclobenzaprine HCl (Flexeril) 5 mg GT DAILY [facility] Stop: 11/29/16 08:59 Last Admin: 10/11/16 12:18 Dose: 5 mg Ferrous Sulfate (Iron) 330 mg GT BID [facility] Stop: 11/28/16 17:19 Last Admin: 10/11/16 08:27 Dose: 330 mg Furosemide (Lasix) 20 mg IVP DAILY [facility] Stop: 12/04/16 08:59 Last Admin: 10/11/16 08:26 Dose: 20 mg Cefepime HCl 1 gm/ Sodium (Chloride) 50 mls @ 100 mls/hr IV Q12H [facility] Stop: 12/03/16 22:59 Last Admin: 10/11/16 11:37 Dose: 100 mls/hr Vancomycin HCl 1.25 gm/ Sodium (Chloride) 250 mls @ 165 mls/hr IV Q24H [facility] Stop: 12/04/16 08:59 Last Admin: 10/11/16 09:19 Dose: 165 mls/hr Sodium Chloride (Nacl 0.9%) 250 mls @ 10 mls/hr IV Q24H [facility] Stop: 12/05/16 14:14 Last Admin: 10/10/16 15:00 Dose: 10 mls/hr Amikacin Sulfate 400 mg/ (Dextrose) 101.6 mls @ 100 mls/hr IV Q18H [facility] Stop: 12/09/16 07:59 Last Infusion: 10/11/16 03:05 Dose: Infused Ipratropium [place] (Atrovent Neb 0.5mg/2.5ml) 0.5 mg HHN Q4HRT [facility] Stop: 11/28/16 18:59 Last Admin: 10/11/16 11:09 Dose: 0.5 mg Lactobacillus Rhamnosus (Culturelle) 1 each PO DAILY [facility] Stop: 11/30/16 08:59 Last Admin: 10/11/16 08:25 Dose: 1 each Miscellaneous (Probiotic Screen) 1 ea MC PRN PRN PRN Reason: PROTOCOL Stop: 11/29/16 14:15 Morphine Sulfate (Morphine) 1 mg IVP Q4HR PRN PRN Reason: Pain (Severe) Stop: 12/08/16 17:48 Last Admin: 10/09/16 19:00 Dose: 1 mg Ondansetron HCl (Zofran Odt) 4 mg PO Q6HR PRN PRN Reason: Nausea / Vomiting Pantoprazole Sodium (Protonix) 40 mg GT DAILY [facility] Stop: 11/29/16 08:59 Last Admin: 10/11/16 08:25 Dose: 40 mg Polyethylene Glycol (Miralax) 17 gm PO BID PRN PRN Reason: Constipation Stop: 11/28/16 17:19 Potassium Chloride (Potassium Chloride Elixir) 10 meq GT DAILY [facility] Stop: 12/09/16 15:59 Last Admin: 10/11/16 08:22 Dose: 10 meq - Procedures Procedures: Procedures Procedure Code Date REMOVAL OF FEEDING DEVICE FROM STOMACH, EXTERNAL APPROACH [id number] 09/29/16 RESPIRATORY VENTILATION, GREATER THAN 96 CONSECUTIVE HOURS [id number] 09/29/16 VENT MGMT INPAT INIT DAY 09/29/16 VENT MGMT INPAT SUBQ DAY 09/29/16 Nutritional Asmnt/Malnutr-PDOC - Dietary Evaluation Malnutrition Findings (Please click <Entered> for more info): Nutritional Asmnt/Malnutrition Start: 09/30/16 09: 36 Text: Status: Complete Freq: Document 09/30/16 09:36 MIRANDA (Rec: 09/30/16 09:58 MIRANDA VINAY- [id number]) Nutritional Asmnt/Malnutrition Patient General Information Nutritional Screening High Risk Screening Diagnosis Pneumonia, leukocytosis ( Reason for visit) Pertinent Medical Hx/Surgical Hx Per nursing notes, CVA Subjective Information Patient was admitted from [facility] with trach and G Tube. History of dysphagia with G tube feedings. Tube feeding at [facility] is Pulmocare at 60ml/hr x 20 hours. This provides 1200 ml volume, 1800 kcal, 81 gm protein. Current Diet Order/ Nutrition Support Nutren Pulmonary at 60ml/hr, free water flush 100ml q6 hr. Prosource 1/day. Patient / S.O Not Indicated Pertinent Medications vitamin C, iron, lasix, vancomycin, zofran, protonix, miralax, K clor Pertinent Labs (09/30)Albumin 2.9, TAG 307 Nutritional Hx/Data Height 1.55 m Height (Calculated Centimeters) 154.9 Current Weight (lbs) 56.699 kg Weight (Calculated Kilograms) 56.7 Weight (Calculated Grams) 16348.0 Wilson Body Weight 105lb % Wilson Body Weight 119 Recent Weight Change No Weight Status Approriate GI Symptoms Difficult in: Swallowing Food Allergies No Cultural/Ethnic/Yazdanism Belief None indicated Usual diet at home Tube feeding Skin Integrity/Comment: 1+ pitting edema in foot/sierra, intact, Simone 14 Current %PO Tube feedi Estimated Nutritional Goals BEE in Kcals: Using Current wt Calories/Kcals/Kg 25-30 kcal/kg Kcals Calculated 8174-7219 kcal/day Protein: Using Current wt Protein g/k.2-1.5 gm/kg Protein Calculated 68-85 gm/day Fluid: ml 7102-1709 ml/day Nutritional Problem 1. Problem Problem Excessive enteral infusion related to Etiology high tube feeding rate aeb Signs/Symptoms: current regimen meeting 130% of upper end calorie needs and 115% of upper end protein needs. Intervention/Recommendation Recommendations by RD Decrease Calorie Intake Comments Current tube feeding regimen provides 2220 kcal/day, 98 gm protein (113gm with prosource) 1523 ml free water with flushes. (>130% of estimated nutrient needs). 1. Decrease tube feeding rate to 45 ml/hr (Nutren Pulmonary) plus Prosource 1 packet/day. Continue cristofer water flush 100ml every 6 hours. Expected Outcomes/Goals Expected Outcomes/Goals patient meet 75-115% of estimated nutrient needs, weight remains stable, labs remain normal, skin remains intact. Physician Parameters for PEM Serum Albumin (g/dl) 2.4 - 3.0 (Moderate)
== END 2016-10-11 18:45 | DRG 870 ==
LOC: ER 11:41 → ICU 15:00
PROVIDERS: ADMIT Internal Medicine; ATTEND Internal Medicine
PROC: 5A1955Z Respiratory Ventilation, Greater than 96 Consecutive Hours (ICD-10-PCS; principal; 2016-09-29)
PROC: 0B21XFZ Change Tracheostomy Device in Trachea, External Approach (ICD-10-PCS; 2016-10-05)
PROC: 0DP6XUZ Removal of Feeding Device from Stomach, External Approach (ICD-10-PCS; 2016-10-06)
PROC: 0DH68UZ Insertion of Feeding Device into Stomach, Via Natural or Artificial Opening Endoscopic (ICD-10-PCS; 2016-10-09)
PROC: 30233N1 Transfusion of Nonautologous Red Blood Cells into Peripheral Vein, Percutaneous Approach (ICD-10-PCS; 2016-10-10)
DX: A41.9 Sepsis, unspecified organism (principal); J69.0 Pneumonitis due to inhalation of food and vomit; J96.20 Acute and chronic respiratory failure, unspecified whether with hypoxia or hypercapnia; R65.21 Severe sepsis with septic shock; I50.33 Acute on chronic diastolic (congestive) heart failure; J95.03 Malfunction of tracheostomy stoma; K94.23 Gastrostomy malfunction; I48.91 Unspecified atrial fibrillation; E46 Unspecified protein-calorie malnutrition; I47.1 Supraventricular tachycardia; N39.0 Urinary tract infection, site not specified; R13.10 Dysphagia, unspecified; I11.0 Hypertensive heart disease with heart failure; I69.30 Unspecified sequelae of cerebral infarction; M81.0 Age-related osteoporosis without current pathological fracture; M19.90 Unspecified osteoarthritis, unspecified site; I25.10 Atherosclerotic heart disease of native coronary artery without angina pectoris; M47.816 Spondylosis without myelopathy or radiculopathy, lumbar region; Z68.24 Body mass index [BMI] 24.0-24.9, adult; Y83.8 Other surgical procedures as the cause of abnormal reaction of the patient, or of later complication, without mention of misadventure at the time of the procedure; Y92.89 Other specified places as the place of occurrence of the external cause; D63.8 Anemia in other chronic diseases classified elsewhere
CPT/HCPCS: 36415-UA; 36600-90; 71010-TC; 80048-TC; 80053-TC; 80061-TC; 80074-90; 80076-TC; 80150-TC; 80202-TC; 81001-TC; 82465-TC; 82803-TC; 82948-90; 83735-TC; 83880-TC; 84100-TC; 84134-90; 84443-TC; 84478-TC; 84484-TC; 85007-TC; 85025-TC; 85027-TC; 85610-TC; 85730-TC; 86592-TC; 86850-TC; 86900-TC; 86901-TC; 86922-TC; 87070; 87086-90; 90779; 93005; 94002; 94003; 94640; 96374; 97530; A4217; C1751; J0278; J0456; J0692; J0696; J1940; J2270; J2704; J3370; J7030; J7040; J7042; J7613; P9016; X3904; X6598; Z7506; Z7610

== ENCOUNTER 2016-10-26 06:00 | Inpatient (IN) | payer MEDICARE, MEDICAID ==
--- NOTE | 2016-10-26 06:28 | ED Physician Chart ---
Chief Complaint/HPI - Patient Information Date Seen:: 10/26/16 Time Seen:: 06:10 Chief Complaint:: coded at SNF History of Present Illness:: Low O2 Sat. Pt. apparently got compressions at SNF. No DNR orders. Per EMS, pt. was blinking her eyes during compressions. Per EMS, on their arrival, pt. brought up a mucous plug. Allergies:: Allergies Allergy/AdvReac Type Severity Reaction Status Date / Time No Known Allergies Allergy Verified 10/26/16 06:09 Vitals:: Vital Signs - 8 hr 10/26/16 06:00 Temp 98.6 F HR 80 RR 19 BP 111/65 O2 Sat % 100 Review of Systems - Review of Systems General/Constitutional: No fever, No chills Skin: No rash Head: Other (pt. responding in monosyllables, questionable orientation, speaking [place]) Pulmonary: SOB, Other (Pt. chronically on vent) GI: No nausea, No vomiting, No diarrhea G/U: No dysuria Psychiatric: No prior psych history Allergic/Immuno: No urticaria Other: Pt. speaks [place] and is responding, but in monosyllables. Questionable orientation. Past Medical History - Past Medical History Past Medical History: HTN, Asthma/COPD, Other (chronic resp. failure, edema, dysphagia follwing nontraumatic intracerebral hemorrhage, pneumonia, TIA, cva,) Social History: Non Smoker, No Alcohol Surgical History: other (trach, vent dependent, gastrostomy) Psychiatricy History: None Medication Reviewed:: zofran, ascorbic acid, acetaminophen, K, Protonix, norvask, miralax, lasix, Fe, flexeril, pulmicort, cordarone, Family Medical History - Family Member Mother History Unknown: Yes Living Status: Hx Family Cancer: No Hx Family Coronary Artery Disease: Yes (MOTHER) Hx Family Congestive Heart Failure: No Hx Family Hypertension: No Hx Family Stroke: No Hx Family Diabetes: No Hx Family Seizures: No Hx Family Dementia: No Hx Family AIDS: No Hx Family HIV: No Hx Family COPD: No Hx Family Hepatitis: No Hx Family Psychiatric Problems: No Hx Family Tuberculosis: No Physical Exam - Physical Examination General/Constitutional: Awake, No distress (Pt. on vent) Head: Atraumatic Eyes: Lids, conjuctiva normal Skin: Nl inspection ENMT: External ears, nose nl Neck: Nontender Respiratory: Nl effort/Exclusion, Clear to Auscultation Other Respiratory comments:: Pt. is on vent. Cardio Vascular: NL S1 S2 GI: No tenderness/rebounding/guarding : No CVA tenderness Extremities: No tenderness or effusion Neuro/Psych: No focal deficits (Pt. does not cooperate with exam. No obvious deficits) Labs/Radiology/EKG Results - Lab Results Results: EKG shows A fib with rate 73. R wave shows early transition. No acute ST change. Other results pending. Dr. Hooker will assume care. ED Septic Shock - . Is Septic Shock (SBP<90, OR Lactate>4 mmol\L) present?: No - <6hrs of presentation: Vital Signs: Vital Signs - 8 hr // 06:00 Temp 98.6 F HR 80 RR 19 BP 111/65 O2 Sat % 100 Reassessment (Disposition) - Diagnosis Diagnosis:: Acute resp. failure, possible associated with mucous plug. - Aftercare/Follow up Instructions Notes:: Dr. Hooker will assume care. Labs and x-ray pending. - Patient Disposition Condition at Disposition:: Stable
[2016-10-26 06:41] LABS: % BASOPHILS 0.2 % (0.0-2.0); % EOSINOPHILS 1.6 % (0.0-5.0); % LYMPHOCYTES 6.6 % (20.0-50.0); % MONOCYTES 4.7 % (2.0-10.0); % NEUTROPHILS 86.9 % (40.0-80.0); HEMATOCRIT 27.4 % (35.0-45.0); HEMOGLOBIN 9.5 gm/dL (11.7-16.1); MEAN CELL VOLUME 94.6 fl (81-100); MEAN CORPUSCULAR HEMOGLOBIN 32.8 pg (27.0-31.0); MEAN CORPUSCULAR HGB CONC 34.7 pg (28.0-36.0); MEAN PLATELET VOLUME 7.3 fl; NEUTROPHILE ABSOLUTE 9.3 Th/cmm (1.8-8.0); RED BLOOD COUNT 2.89 Mil/cmm (3.80-5.20); RED CELL DISTRIBUTION WIDTH 14.5 % (11.5-20.0)
[2016-10-26 06:43] LABS: ALB/GLOB RATIO 0.8 (1.0-1.8); ALKALINE PHOSPHATASE 78 U/L (34-104); AMYLASE SERUM 48 U/L (29-103); ANION GAP 3.4 (7.0-16.0); BILIRUBIN,TOTAL 0.6 mg/dL (0.3-1.0); BUN - UREA NITROGEN 41 mg/dL (7-25); CALCIUM SERUM 8.9 mg/dL (8.6-10.3); CARBON DIOXIDE 31.9 mEq/L (21.0-31.0); CHLORIDE 100 mEq/L (98-107); GLUCOSE 151 mg/dL (70-105); LIPASE 45 U/L (11-82); POTASSIUM SERUM 4.3 mEq/L (3.5-5.1); SGOT 29 U/L (13-39); SGPT/ALT 25 U/L (7-52); SODIUM SERUM 131 mEq/L (136-145)
[2016-10-26 06:44] LABS: INR 0.99 (0.5-1.4); PROTHROMBIN TIME (TEST) 10.3 SECONDS (9.5-11.5)
[2016-10-26 06:50] LABS: PLATELET COUNT 212 Th/cmm (150-400); WHITE BLOOD COUNT 10.7 Th/cmm (4.8-10.8)
[2016-10-26 07:04] LABS: CREATINE KINASE MB 1.5 ng/mL (0.6-6.3)
[2016-10-26 07:26] LABS: URINE BILIRUBIN NEGATIVE (NEGATIVE); URINE BLOOD TRACE (NEGATIVE); URINE COLOR YELLOW; URINE GLUCOSE (UA) NEGATIVE (NEGATIVE); URINE KETONE NEGATIVE (NEGATIVE)
[2016-10-26 07:27] LABS: URINE PH 6.5; URINE PROTEIN 100 mg/dL (NEGATIVE); URINE UROBILINOGEN 0.2 E.U./dL (0.2 - 1.0)
[2016-10-26 07:40] LABS: URINE BACTERIA MODERATE /hpf (NONE SEEN); URINE EPITHELIAL CELLS FEW /lpf (FEW)
--- NOTE | 2016-10-26 08:14 | Admit Criteria Form ---
Admit Criteria Forms - Admit Criteria Diagnosis: RESPIRATORY FAILURE [facility] Clinical Indications for Admission to Inpatient Care (Place 'X' for any and all applicable criteria): Hospital admission is needed for appropriate care of the patient because of acute respiratory failure or insufficiency as indicated by ANY ONE of the following(1)(2)(3)(4)(5)(6)(7)(8): [ ]I. Mechanical ventilation needed (acute invasive or noninvasive) [ ]II. Severe ventilation deficit as indicated by ANY ONE of the following (9) [ ]a) Respiratory acidosis (pH less than 7.32 and partial pressure of carbon dioxide greater than 40 mm Hg (5.3 kPa)) [ ]b) Partial pressure of carbon dioxide greater than 44 mm Hg (5.9 kPa ) (new) [ ]c) Airflow measurements less than 25% of predicted (eg, peak expiratory flow rate less than 100 L/minute) [ ]d) Forced vital capacity less than 15 mL/kg of ideal body weight, or 50% decrease in vital capacity from baseline [ ]III. Noncardiac pulmonary edema not resolving with rapid emergency treatment (8) [ X]IV. Severe respiratory distress as indicated by ANY ONE of the following: [ ]a) Severe tachypnea (respiratory rate greater than 30, greater than 45 for 6-month-old, greater than 60 for ) [ X]b) Severe hypoxemia (partial pressure of oxygen less than 50 mm Hg (6.7 kPa) on greater than 50% oxygen or partial pressure of oxygen to FIO2 ratio less than 200) [ ]c) Mental status deterioration from respiratory disease [ ]V. Airway obstruction or inadequate protection [A](10)(11) The original [employer] content created by [employer] has been revised. The portions of the content which have been revised are identified through the use of italic text or in bold, and [employer] has neither reviewed nor approved the modified material. All other unmodified content is copyright [employer]. Please see references footnoted in the original [employer] edition 2016 Admit Criteria Met?: Pending
[2016-10-26] MEDS ORDERED: Albuterol Nebulizer 2.5mg/3mL HHN PRN (08:22)
[2016-10-26] MEDS ORDERED: Morphine Sulfate 2 mg/mL 1mL Syr IVP PRN (08:22)
[2016-10-26] MEDS ORDERED: Budesonide 0.5 Mg/2 mL Ud HHN SCH (09:00)
--- NOTE | 2016-10-26 09:20 | Diagnostic Imaging Report ---
Portable chest x-ray HISTORY: Pneumonia Compared with a prior exam of October 09, 2016, the heart is enlarged. No focal pulmonary processes. Tracheostomy noted. Multiple metallic fragments project over the right shoulder region. IMPRESSION: 1. No focal pulmonary processes 2. Cardiomegaly
--- NOTE | 2016-10-26 10:10 | Diagnostic Imaging Report ---
CT scan of the chest without intravenous contrast HISTORY: Shortness of breath Total DLP equals 224 CTDI equals 6.2 Axial sections were obtained from a level above the clavicles down to level below the diaphragm. The heart is enlarged. Coronary artery and atherosclerotic vascular calcification is seen. Tracheostomy noted. There is dilatation of the ascending aorta with a maximum diameter of 3.8 cm. Normal-sized lymph nodes are seen within the mediastinum. Pleural thickening is noted within the right and left lower hemithoracic. Nonspecific parenchymal density and infiltrates noted in the right and a greater degree left lower lobe regions. Findings may be chronic. Pneumonia cannot be definitely excluded. No free pleural fluid. Limited sections below the diaphragm demonstrate marked irregularity in the cortical margin of the left kidney consistent with scarring. Vascular calcification noted. Degenerative changes seen within the spine. IMPRESSION: 1. Pleural thickening within the right and left lower hemithoracic regions along with nonspecific pulmonary parenchymal densities and infiltrates particularly within the left lower hemithorax. The findings may be chronic. However, pneumonia cannot be needed. 2. Cardiomegaly with evidence of coronary artery and atherosclerotic vascular disease 3. Aneurysmal dilatation of the ascending aorta (maximum diameter equals 3.8 cm).
[2016-10-26] MEDS: INSULIN ASPART SLIDING SCALE 100 UNITS/ML UNIT SUBQ SCH ×3 (11:30→21:25)
--- NOTE | 2016-10-26 12:14 | History & Physical ---
PATIENT IDENTIFICATION: An 86-year-old female. CHIEF COMPLAINT: None. HISTORY SOURCE: Talking to the Emergency Room MD and reviewing the chart. HISTORY OF PRESENT ILLNESS: An 86-year-old [place] female who resides at [facility]. She is vent dependent and has a trach inside, noted by nursing staff that the patient had respiratory distress and the patient had agonal breathing. The patient was sent to the Emergency Room by 911. The patient did have some resuscitation on the floor. When the patient arrived in the Emergency Room, the patient was resuscitated and noted to have mucus plug noted as well. The patient was stabilized. Workup did reveal the patient had infiltrate on her chest x-ray as well. The patient was noted to have atrial fibrillation with rapid ventricular rate. The patient is now admitted for further management. PAST MEDICAL HISTORY: Remarkable for: 1. Vent-dependent respiratory failure, status post tracheostomy. 2. Atherosclerotic heart disease. 3. Hypertension. 4. Congestive heart failure. 5. DJD. 6. Contracture of upper and lower extremities. MEDICATIONS: List has been reviewed and reconciled appropriately. ALLERGIES: The patient is not allergic to medications. SOCIAL HISTORY: She is a resident of retirement. No alcohol or drug history. FAMILY HISTORY: Unavailable. REVIEW OF SYSTEMS: Unable to obtain. PHYSICAL EXAMINATION: GENERAL: The patient is an 86-year-old, alert, lying in the bed, not following any command. VITAL SIGNS: Temperature 99, pulse is 100, respiratory rate is 20, blood pressure 110/70. HEENT: Normocephalic, atraumatic. Extraocular muscles are intact. Tongue was pink and dry. ____ upper and lower dentition noted. No facial asymmetry. NECK: Supple, no JVD. HEART: Both heart sounds are irregularly ____. Grade 2/6 systolic murmur noted. Positive for S3. CHEST AND LUNGS: Equal in expansion with expiratory wheezing throughout. ABDOMEN: Soft. No guarding, no rigidity. Gastrostomy tube noted. EXTREMITIES: Contracture upper and lower extremities. Peripheral pulses +1. BACK: No kyphosis. No scoliosis. NEUROLOGIC: Marked dementia, not following any commands. AVAILABLE DIAGNOSTIC DATA: Has been reviewed. CLINICAL IMPRESSION: 1. Acute on chronic respiratory failure, status post resuscitation for ____ mucus plug. 2. Ventilator-associated pneumonia with previous history of methicillin-resistant Staphylococcus aureus. 3. Atrial fibrillation with rapid ventricular rate. 4. Congestive heart failure by history. 5. Hypertension. 6. Coronary artery disease. 7. Degenerative joint disease. 8. Status post tracheostomy. 9. Required total care. PLAN: 1. Admit this patient to ICU. 2. Pulmonary consult. 3. Oxygen. 4. ____. 5. Nebulizer treatment. 6. Pulmonary toilet. 7. Blood cultures, urine cultures and sputum cultures. 8. IV antibiotic with Zosyn and vancomycin. 9. GI and DVT prophylaxis. 10. Symptoms management. 11. Appropriate home medicine reconciliation. 12. CT scan of the chest for evaluation of the pneumonia. 13. Follow up on [facility] consultant recommendation. 14. ID consult will be requested. 15. Rate controlled with Cardizem drip. 16. Care plan has been reviewed and discussed with staff. JOB# [id number]
[2016-10-26] MEDS ORDERED: Albuterol/Ipratropium Neb 3 ML AERS HHN SCH ×2 (13:00→14:00)
[2016-10-26] MEDS: Sodium Chloride 0.9% 1,000 ML IV SCH (14:38)
[2016-10-26] MEDS: Ferrous Sulfate 300 MG/5 ML UDC GT SCH ×2 (14:41→17:00)
[2016-10-26] MEDS: Pantoprazole 40 mg/Packet GT SCH (14:42)
[2016-10-26] MEDS: Enoxaparin 30 mg/0.3 mL 0.3mL Syr SUBQ SCH (14:56)
--- NOTE | 2016-10-26 18:46 | Admit Criteria Form ---
Admit Criteria Forms - Admit Criteria Diagnosis: RESPIRATORY FAILURE [facility] Clinical Indications for Admission to Inpatient Care (Place 'X' for any and all applicable criteria): Hospital admission is needed for appropriate care of the patient because of acute respiratory failure or insufficiency as indicated by ANY ONE of the following(1)(2)(3)(4)(5)(6)(7)(8): [X]I. Mechanical ventilation needed (acute invasive or noninvasive) [ ]II. Severe ventilation deficit as indicated by ANY ONE of the following (9) [ ]a) Respiratory acidosis (pH less than 7.32 and partial pressure of carbon dioxide greater than 40 mm Hg (5.3 kPa)) [ ]b) Partial pressure of carbon dioxide greater than 44 mm Hg (5.9 kPa ) (new) [ ]c) Airflow measurements less than 25% of predicted (eg, peak expiratory flow rate less than 100 L/minute) [ ]d) Forced vital capacity less than 15 mL/kg of ideal body weight, or 50% decrease in vital capacity from baseline [ ]III. Noncardiac pulmonary edema not resolving with rapid emergency treatment (8) [ ]IV. Severe respiratory distress as indicated by ANY ONE of the following: [ ]a) Severe tachypnea (respiratory rate greater than 30, greater than 45 for 6-month-old, greater than 60 for ) [ ]b) Severe hypoxemia (partial pressure of oxygen less than 50 mm Hg ( 6.7 kPa) on greater than 50% oxygen or partial pressure of oxygen to FIO2 ratio less than 200) [ ]c) Mental status deterioration from respiratory disease [ ]V. Airway obstruction or inadequate protection [A](10)(11) The original [employer] content created by [employer] has been revised. The portions of the content which have been revised are identified through the use of italic text or in bold, and [employer] has neither reviewed nor approved the modified material. All other unmodified content is copyright [employer]. Please see references footnoted in the original [employer] edition 2016 Admit Criteria Met?: Yes
[2016-10-26] MEDS: Albuterol/Ipratropium Neb 3 ML AERS HHN SCH ×2 (19:00→22:31)
[2016-10-26] MEDS: Budesonide 0.5 Mg/2 mL Ud HHN SCH (19:00)
[2016-10-27] MEDS: Albuterol/Ipratropium Neb 3 ML AERS HHN SCH ×6 (02:52→22:27)
--- NOTE | 2016-10-27 03:36 | Consultation ---
REFERRING PHYSICIAN: Dr. Friedman. Thank you very much for this consultation. HISTORY OF PRESENT ILLNESS: This is an 86-year-old female who was sent here early this morning from subacute care and a desaturation episode and was brought to the Emergency Room and admitted for further treatment and management. The patient has history of chronic respiratory failure, ventilator dependent. The patient was just seen by myself yesterday, was doing well, tolerating weaning, but has secretions and that is why Mucomyst was added to clear up the secretions bit more efficiently. PAST MEDICAL HISTORY: Pneumonia, sepsis, weakness, and dysphagia. SOCIAL HISTORY: No history of smoking. PHYSICAL EXAMINATION: GENERAL: Arousable, not in acute distress. VITAL SIGNS: Temperature 98.3, pulse 80, respiration 14, blood pressure 130/77, and saturation 100%. CHEST: Good breath sounds. Minimal rhonchi bilaterally. HEART: Regular rate and rhythm. ABDOMEN: Soft. EXTREMITIES: No edema. LABORATORY DATA: WBC is 10.7, hemoglobin 9.5, hematocrit 27.4, and platelets 212,000. potassium 4.3, BUN is 4, and creatinine 1.0. BNP is 213. Chest x-ray and CT show bibasilar chronic infiltrate. IMPRESSION: 1. This is an 86-year-old female with acute on chronic respiratory failure possible mucus plugging and pneumonia . 2. Status post pneumonia. 3. Weakness. 4. Bronchitis. PLAN: 1. IV antibiotics and sputum culture. 2. Nebulizer. 3. Pulmonary toilet and ventilator support. Thank you very much for this consultation. I will follow the patient with you. JOB# [id number] MTDD
--- NOTE | 2016-10-27 04:41 | Consultation ---
REFERRING PHYSICIAN: Dr. Jeff Friedman. REASON FOR CONSULTATION: Pneumonia. HISTORY OF PRESENT ILLNESS: The patient is an 86-year-old female with past medical history of vent-dependent respiratory failure, coronary artery disease, COPD, hypertension, CVA, pneumonia with MRSA and pseudomonas brought in from nursing facility for low oxygen saturation. During the compression, she brought up mucus plug. On initial evaluation, the patient's temperature was 98.6 degrees Fahrenheit and WBC count was 10,700. ID consult was called for further antibiotic management. Meanwhile, the patient was started on vancomycin and Zosyn. On review of the records, the patient had a history of pneumonia due to the MRSA and Pseudomonas aeruginosa multidrug resistant organism. ALLERGIES: NKDA. MEDICATIONS: As per medication reconciliation sheet. Antibiotic melgoza, the patient is on vancomycin and Zosyn. REVIEW OF SYSTEMS: The patient is unable to give any history. She blinks her eyes. The patient is on ventilator. So far, the patient has no fever. PAST MEDICAL HISTORY: Includes hypertension, asthma, COPD, ventilator dependent respiratory failure, CVA and pneumonia with multidrug resistant MRSA, multidrug resistant pseudomonas and MRSA, TIA, CVA and coronary artery disease. PAST SURGICAL HISTORY: Includes tracheostomy and G-tube placement. PSYCHIATRIC HISTORY: Not available. FAMILY HISTORY: Unknown. PHYSICAL EXAMINATION: CURRENT VITAL SIGNS: Show temperature is 98.3, pulse 80, respirations 14 and blood pressure 113/76. GENERAL: The patient is comfortable lying in the bed, not in acute distress. HEENT: Head is normocephalic and atraumatic. Oral cavity is moist. Kindred tongue. Eyes: Pallor is present. No icterus. Pupils PERRLA. NECK: Trach site is clear. CHEST: Bilateral breath sounds. No crackles or wheezing. HEART: S1, S2 within normal limits. Regular rhythm. No murmur, no gallop. ABDOMEN: Soft, nontender and nondistended. Bowel sounds present. EXTREMITIES: No cyanosis, no clubbing and no edema. NEUROLOGIC: Opens her eyes. Unable to communicate at this time. LABORATORY DATA: Lab melgoza current lab shows WBC count is 10,700, hemoglobin 9.5, hematocrit 27.4, platelets are 212,000 and neutrophils 86.9%. Sodium 131, potassium 4.3, chloride 100, bicarbonate is 32, BUN is 41, creatinine 1 and glucose is 151. Urinalysis shows small leukocyte esterase, wbc's 10-25, moderate bacteria. IMAGING STUDIES: Chest x-ray showed no acute disease, cardiomegaly. CT scan of the chest showed pleural thickening within the right and left ____ region along with nonspecific parenchymal densities and infiltrate particularly within the left lower hemithorax. No significant finding consistent with chronic pneumonia, cannot be ruled out. Cardiomegaly. IMPRESSION: 1. Hypoxia likely secondary to mucus plug, may have remaining left lower lobe pneumonia. 2. Urinary tract infection. 3. Vent dependent respiratory failure. 4. Chronic obstructive pulmonary disease, asthma. 5. Coronary artery disease. 6. Cardiomegaly. 7. Hypertension. 8. History of cerebrovascular accident. RECOMMENDATIONS: We will discontinue Zosyn and start gentamicin and Flagyl. Continue vancomycin IV. Depending on the clinical course may decide further antibiotic therapy. If there is no fever and no leukocytosis, may consider discontinuing antibiotic after 5 days. Thank you, Dr. Friedman for involving me in taking care of this patient. JOB# [id number]
[2016-10-27 05:42] LABS: % BASOPHILS 0.2 % (0.0-2.0); % EOSINOPHILS 1.4 % (0.0-5.0); % LYMPHOCYTES 13.9 % (20.0-50.0); % MONOCYTES 8.6 % (2.0-10.0); % NEUTROPHILS 75.9 % (40.0-80.0); HEMATOCRIT 27.4 % (35.0-45.0); HEMOGLOBIN 9.6 gm/dL (11.7-16.1); MEAN CELL VOLUME 94.9 fl (81-100); MEAN CORPUSCULAR HEMOGLOBIN 33.4 pg (27.0-31.0); MEAN CORPUSCULAR HGB CONC 35.2 pg (28.0-36.0); MEAN PLATELET VOLUME 7.4 fl; NEUTROPHILE ABSOLUTE 7.5 Th/cmm (1.8-8.0); PLATELET COUNT 213 Th/cmm (150-400); RED BLOOD COUNT 2.89 Mil/cmm (3.80-5.20); RED CELL DISTRIBUTION WIDTH 14.5 % (11.5-20.0); WHITE BLOOD COUNT 9.7 Th/cmm (4.8-10.8)
[2016-10-27 06:01] LABS: ALB/GLOB RATIO 0.8 (1.0-1.8); ALKALINE PHOSPHATASE 71 U/L (34-104); ANION GAP 9.4 (7.0-16.0); BILIRUBIN,TOTAL 0.7 mg/dL (0.3-1.0); BUN - UREA NITROGEN 36 mg/dL (7-25); CALCIUM SERUM 9.4 mg/dL (8.6-10.3); CARBON DIOXIDE 26.2 mEq/L (21.0-31.0); CHLORIDE 102 mEq/L (98-107); CREATININE - SERUM 0.9 mg/dL (0.6-1.2); GLUCOSE 144 mg/dL (70-105); POTASSIUM SERUM 3.6 mEq/L (3.5-5.1); SGOT 29 U/L (13-39); SGPT/ALT 23 U/L (7-52); SODIUM SERUM 134 mEq/L (136-145)
[2016-10-27] MEDS: Budesonide 0.5 Mg/2 mL Ud HHN SCH ×2 (07:04→19:00)
[2016-10-27] MEDS: INSULIN ASPART SLIDING SCALE 100 UNITS/ML UNIT SUBQ SCH ×4 (07:10→20:10)
[2016-10-27] MEDS: Ferrous Sulfate 300 MG/5 ML UDC GT SCH ×2 (09:25→17:49)
[2016-10-27] MEDS: Pantoprazole 40 mg/Packet GT SCH (09:25)
[2016-10-27] MEDS: Enoxaparin 30 mg/0.3 mL 0.3mL Syr SUBQ SCH (09:26)
[2016-10-27] MEDS ORDERED: Probiotic Screen MC PRN (09:51)
[2016-10-27 09:53] LABS: ABG SOURCE Arterial; BE(B) 5.6 mEq/L (-3.0-3.0); HCO3 29.3 mEq/L (20.0-26.0); pH 7.47 (7.35-7.45)
[2016-10-27 09:54] LABS: ALLEN TEST YES; FIO2 32; MECH RATE 10; MECH VT 400; PS 15
[2016-10-27] MEDS: Chlorhexidine Gluconate 0.12% 15mL Mouthwash MM SCH (20:08)
[2016-10-27] MEDS: Sodium Chloride 0.9% 1,000 ML IV SCH (20:12)
[2016-10-28] MEDS: Albuterol/Ipratropium Neb 3 ML AERS HHN SCH ×6 (03:47→23:03)
[2016-10-28] MEDS: INSULIN ASPART SLIDING SCALE 100 UNITS/ML UNIT SUBQ SCH ×5 (06:10→21:01)
[2016-10-28] MEDS: Sodium Chloride 0.9% 1,000 ML IV SCH (06:34)
[2016-10-28] MEDS: Budesonide 0.5 Mg/2 mL Ud HHN SCH ×2 (07:15→18:59)
[2016-10-28] MEDS: Chlorhexidine Gluconate 0.12% 15mL Mouthwash MM SCH ×2 (08:00→20:27)
[2016-10-28] MEDS: Pantoprazole 40 mg/Packet GT SCH (09:25)
[2016-10-28] MEDS: Lactobacillus Rhamnosus 10 Billion CFU Capsule PO SCH (09:25)
[2016-10-28] MEDS: Ferrous Sulfate 300 MG/5 ML UDC GT SCH ×2 (09:25→17:20)
[2016-10-28] MEDS: Enoxaparin 30 mg/0.3 mL 0.3mL Syr SUBQ SCH (09:26)
[2016-10-28 13:48] LABS: VANCOMYCIN TROUGH 15.3 ug/mL (10-20)
[2016-10-28] MEDS ORDERED: Docusate Sodium 100 mg/10 mL UD PO SCH (14:22)
--- NOTE | 2016-10-28 20:25 | Infectious Disease Prog Note ---
Infectious Disease Subjective - Review of Systems Service Date: 10/28/16 Subjective: no new change, there is no fever. Remains on the vent. s/p trach and peg. Very minimal ET secretions. Infectious Disease Objective - Results Result Diagrams: 10/27/16 05:02 10/27/16 05:02 Recent Labs: Laboratory Last Values WBC 9.7 Th/cmm (4.8-10.8) 10/27/16 05:02 RBC 2.89 Mil/cmm (3.80-5.20) L 10/27/16 05:02 Hgb 9.6 gm/dL (11.7-16.1) L 10/27/16 05:02 Hct 27.4 % (35.0-45.0) L 10/27/16 05:02 MCV 94.9 fl (81-100) 10/27/16 05:02 MCH 33.4 pg (27.0-31.0) H 10/27/16 05:02 MCHC Differential 35.2 pg (28.0-36.0) 10/27/16 05:02 RDW 14.5 % (11.5-20.0) 10/27/16 05:02 Plt Count 213 Th/cmm (150-400) 10/27/16 05:02 MPV 7.4 fl 10/27/16 05:02 Neutrophils % 75.9 % (40.0-80.0) 10/27/16 05:02 Lymphocytes % 13.9 % (20.0-50.0) L 10/27/16 05:02 Monocytes % 8.6 % (2.0-10.0) 10/27/16 05:02 Eosinophils % 1.4 % (0.0-5.0) 10/27/16 05:02 Basophils % 0.2 % (0.0-2.0) 10/27/16 05:02 PT 10.3 SECONDS (9.5-11.5) 10/26/16 06:12 INR 0.99 (0.5-1.4) 10/26/16 06:12 PTT (Actin FS) 22.9 SECONDS (26.0-38.0) L 10/26/16 06:12 Specimen Source Arterial 10/27/16 09:35 Sample Site Left Radial 10/27/16 09:35 pH 7.47 (7.35-7.45) H 10/27/16 09:35 pCO2 41.0 mmHg (35.0-45.0) 10/27/16 09:35 pO2 114.0 mmHg (80.0-100.0) H 10/27/16 09:35 HCO3 29.3 mEq/L (20.0-26.0) H 10/27/16 09:35 Base Excess 5.6 mEq/L (-3.0-3.0) H 10/27/16 09:35 O2 Saturation 99.0 % (92.0-100.0) 10/27/16 09:35 Antonio Test YES 10/27/16 09:35 Vent Rate 10 10/27/16 09:35 Inspired O2 32 10/27/16 09:35 Tidal Volume 400 10/27/16 09:35 PEEP 5 10/27/16 09:35 Pressure (ins/psv/peep) 15 10/27/16 09:35 Critical Value E.MELISSA 10/27/16 09:35 Sodium 134 mEq/L (136-145) L 10/27/16 05:02 Potassium 3.6 mEq/L (3.5-5.1) 10/27/16 05:02 Chloride 102 mEq/L (98-107) 10/27/16 05:02 Carbon Dioxide 26.2 mEq/L (21.0-31.0) 10/27/16 05:02 Anion Gap 9.4 (7.0-16.0) 10/27/16 05:02 BUN 36 mg/dL (7-25) H 10/27/16 05:02 Creatinine 0.9 mg/dL (0.6-1.2) 10/27/16 05:02 Est GFR ( Amer) TNP 10/27/16 05:02 Est GFR (Non-Af Amer) TNP 10/27/16 05:02 BUN/Creatinine Ratio 40.0 10/27/16 05:02 Glucose 144 mg/dL (70-105) H 10/27/16 05:02 POC Glucose 125 MG/DL (70 - 105) H 10/28/16 17:22 Whole Bld Lactic Acid 1.41 mmol/L (0.60-1.99) 10/26/16 06:55 Calcium 9.4 mg/dL (8.6-10.3) 10/27/16 05:02 Total Bilirubin 0.7 mg/dL (0.3-1.0) 10/27/16 05:02 AST 29 U/L (13-39) 10/27/16 05:02 ALT 23 U/L (7-52) 10/27/16 05:02 Alkaline Phosphatase 71 U/L (34-104) 10/27/16 05:02 Creatine Kinase 51 U/L (30-223) 10/26/16 06:12 CK-MB (CK-2) 1.5 ng/mL (0.6-6.3) 10/26/16 06:12 Troponin I 0.03 ng/mL (0.01-0.05) 10/27/16 00:36 B-Natriuretic Peptide 213.0 pg/mL (5.0-100.0) H 10/26/16 06:12 Total Protein 7.6 gm/dL (6.0-8.3) 10/27/16 05:02 Albumin 3.3 gm/dL (3.7-5.3) L 10/27/16 05:02 Globulin 4.3 gm/dL 10/27/16 05:02 Albumin/Globulin Ratio 0.8 (1.0-1.8) L 10/27/16 05:02 Amylase 48 U/L (29-103) 10/26/16 06:12 Lipase 45 U/L (11-82) 10/26/16 06:12 TSH 2.16 uIU/ml (0.34-5.60) 10/26/16 10:05 Urine Source CATH 10/26/16 06:30 Urine Color YELLOW 10/26/16 06:30 Urine Clarity CLEAR (CLEAR) 10/26/16 06:30 Urine pH 6.5 10/26/16 06:30 Ur Specific [place] 1.020 (1.005-1.030) 10/26/16 06:30 Urine Protein 100 mg/dL (NEGATIVE) H 10/26/16 06:30 Urine Glucose (UA) NEGATIVE mg/dL (NEGATIVE) 10/26/16 06:30 Urine Ketones NEGATIVE mg/dL (NEGATIVE) 10/26/16 06:30 Urine Blood TRACE (NEGATIVE) 10/26/16 06:30 Urine Nitrate NEGATIVE (NEGATIVE) 10/26/16 06:30 Urine Bilirubin NEGATIVE (NEGATIVE) 10/26/16 06:30 Urine Urobilinogen 0.2 E.U./dL (0.2 - 1.0) 10/26/16 06:30 Ur Leukocyte Esterase SMALL (NEGATIVE) H 10/26/16 06:30 Urine RBC 2-5 /hpf (0-5) 10/26/16 06:30 Urine WBC 10-25 /hpf (0-5) H 10/26/16 06:30 Ur Epithelial Cells FEW /lpf (FEW) 10/26/16 06:30 Urine Bacteria MODERATE /hpf (NONE SEEN) 10/26/16 06:30 Gentamicin Trough ug/ml (0.2-2.0) 10/28/16 13:18 Vancomycin Trough 15.3 ug/mL (10-20) 10/28/16 13:18 - Physical Exam Vitals and I&O: Vital Signs Temp 97.5 F 10/28/16 19:00 Pulse 83 10/28/16 19:00 Resp 13 10/28/16 19:00 BP 127/72 10/28/16 19:00 Pulse Ox 100 10/28/16 19:00 Intake & Output 10/28/16 10/28/16 10/29/16 06:59 18:59 06:59 Intake Total 1513 1080 Output Total 650 800 Balance 863 280 Intake: Intake, IV Amount 1103 250 Gentamicin 120 mg In 103 Sodium Chloride 0.9% 100 ml @ 100 mls/hr IV Q24H [facility] Rx#:[id number] Sodium Chloride 0.9% 1, 1000 000 ml @ 100 mls/hr IV . Q10H [facility] Rx#:[id number] Vancomycin HCl 1.25 gm In 250 Sodium Chloride 0.9% 250 ml @ 165 mls/hr IV Q24H [facility] Rx#:[id number] Oral 10 Tube Feeding 360 420 Other 50 400 Output: Urine 650 800 Other: # Bowel Movements 0 Active Medications: Current Medications Acetaminophen (Tylenol) 650 mg PO Q4H PRN PRN Reason: Mild Pain/Headache/T above 101 Stop: 12/25/16 08:21 Acetylcysteine (Mucomyst 20%) 2 ml HHN Q4HRT [facility] Stop: 12/25/16 14:59 Last Admin: 10/28/16 15:18 Dose: 2 ml Albuterol Sulfate (Albuterol 2.5mg/3ml Neb Ud) 2.5 mg HHN Q2HR PRN PRN Reason: Shortness of Breath Stop: 12/25/16 08:21 Albuterol/Ipratropium (Duoneb Neb) 3 ml HHN Q4HRT [facility] Stop: 12/25/16 14:59 Last Admin: 10/28/16 18:59 Dose: 3 ml Amiodarone HCl (Cordarone) 200 mg GT DAILY [facility] Stop: 12/25/16 08:59 Last Admin: 10/28/16 09:25 Dose: 200 mg Budesonide (Pulmicort) 0.5 mg HHN BIDRT [facility] Stop: 12/25/16 09:44 Last Admin: 10/28/16 18:59 Dose: 0.5 mg Chlorhexidine Gluconate (Peridex) 15 ml MM 0800,2000 [facility] Stop: 12/26/16 19:59 Last Admin: 10/28/16 08:00 Dose: 15 ml Docusate Sodium (Colace) 100 mg PO DAILY [facility] Stop: 12/28/16 08:59 Enoxaparin Sodium (Lovenox) 30 mg SUBQ DAILY [facility] Stop: 12/25/16 08:59 Last Admin: 10/28/16 09:26 Dose: 30 mg Ferrous Sulfate (Iron) 330 mg GT BID [facility] Stop: 12/25/16 08:59 Last Admin: 10/28/16 17:20 Dose: 330 mg Sodium Chloride (Nacl 0.9%) 1,000 mls @ 100 mls/hr IV .Q10H [facility] Stop: 12/25/16 08:29 Last Admin: 10/28/16 06:34 Dose: 100 mls/hr Gentamicin Sulfate 120 mg/ (Sodium Chloride) 103 mls @ 100 mls/hr IV Q24H [facility] Stop: 12/25/16 17:59 Last Admin: 10/28/16 17:20 Dose: 100 mls/hr Vancomycin HCl 1.25 gm/ Sodium (Chloride) 250 mls @ 165 mls/hr IV Q24H [facility] Stop: 12/26/16 13:59 Last Infusion: 10/28/16 15:50 Dose: Infused Insulin Aspart (Novolog Insulin Sliding Scale) 0 units SUBQ ACHS [facility] PRN Reason: Protocol Stop: 12/25/16 11:29 Last Admin: 10/28/16 17:23 Dose: Not Given Lactobacillus Rhamnosus (Culturelle) 1 each PO DAILY [facility] Stop: 12/27/16 08:59 Last Admin: 10/28/16 09:25 Dose: 1 each Lorazepam (Ativan) 1 mg IVP Q4H PRN; Protocol PRN Reason: Anxiety/Agitation Stop: 12/25/16 08:21 Miscellaneous (Vancomycin Iv Per Pharmacy) 1 ea PRN PRN PRN Reason: PROTOCOL Stop: 12/25/16 08:33 Miscellaneous (Gentamicin Iv Per Pharmacy) 1 ea PRN PRN PRN Reason: PROTOCOL Stop: 12/25/16 15:14 Miscellaneous (Probiotic Screen) 1 ea PRN PRN PRN Reason: PROTOCOL Stop: 12/26/16 09:50 Morphine Sulfate (Morphine) 2 mg IVP Q4H PRN PRN Reason: Severe Pain Stop: 12/25/16 08:21 Ondansetron HCl (Zofran) 4 mg IVP Q6H PRN PRN Reason: Nausea / Vomiting Stop: 12/25/16 08:21 Pantoprazole Sodium (Protonix) 40 mg GT DAILY [facility] Stop: 12/25/16 08:59 Last Admin: 10/28/16 09:25 Dose: 40 mg General: no acute distress HEENT: atraumatic, normocephalic, PERRLA, EOMI, moist mucous membrane Neck: supple, tracheostomy Cardiovascular: S1S2, regular Lungs: clear to percussion, crackles Abdomen: soft, bowel sounds, other (peg), no tender, no distended, no mass Extremities: no cyanosis, no clubbing, no edema Neurological: other (opens eyes.) - Procedures Procedures: Procedures Procedure Code Date CHANGE TRACHEOSTOMY DEVICE IN TRACHEA, EXTERNAL APPROACH [id number] 09/29/16 INSERTION OF FEEDING DEVICE INTO STOMACH, ENDO [id number] 09/29/16 REMOVAL OF FEEDING DEVICE FROM STOMACH, EXTERNAL APPROACH [id number] 09/29/16 RESPIRATORY VENTILATION, 24-96 CONSECUTIVE HOURS [id number] 10/26/16 RESPIRATORY VENTILATION, GREATER THAN 96 CONSECUTIVE HOURS [id number] 09/29/16 TRANSFUSE NONAUT RED BLOOD CELLS IN PERIPH VEIN, PERC [id number] 09/29/16 VENT MGMT INPAT INIT DAY 10/26/16 VENT MGMT INPAT SUBQ DAY 10/26/16 Infectious Disease Assmt/Plan - Assessment Assessment: 1. pneumonia sputum culture grew Stenotrophomonas and Pseudomonas. 2. UTI. 3. VDRF. 4. dementia. 5. HTN. 6. Dysphagia 7. Asthma/COPD. 8. CAD. - Plan Plan: change vanco to bactrim ds and continue genta. Nutritional Asmnt/Malnutr-PDOC - Dietary Evaluation Malnutrition Findings (Please click <Entered> for more info): Nutritional Asmnt/Malnutrition Start: 10/26/16 11: 37 Text: Status: Complete Freq: Document 10/26/16 11:39 GSUN (Rec: 10/26/16 11:42 GSUN [id number]) Nutritional Asmnt/Malnutrition Patient General Information Nutritional Screening Consult Diagnosis ER: respiratory distress, hypoxemia, dehydration, vent dependent Pertinent Medical Hx/Surgical Hx ER: HTN, asthma/COPD, chronic resp failure, TIA, CVA, dysphagia following nontraumatic ictracerebral hemorrhage, PNA Subjective Information 86 year old female. Pt was admitted to [facility] recently . RD consult for Simone Joshi. Pt seen resting with eyes closed. Bedscale weight 137. 8lb, 131.5lb 2 weeks ago, questionable weight difference . Diet order for Diabetisource 30ml/hr. Tube feeding bag not hanging yet, RN made aware. Tube feeding at SNF: Pulmocare at 60ml/hrs x 20hrs, providing 1200ml total volumes , 1800kcal, and 82gm protein. Current Diet Order/ Nutrition Support Doabetisource 30ml/hr Pertinent Medications Iron, Novolog, Vancomycin, Morphine, Zofran, Protonix Pertinent Labs 10/26: glucose 151H, BUN 41H Nutritional Hx/Data Height 1.55 m Height (Calculated Centimeters) 154.9 Current Weight (lbs) 59.421 kg Weight (Calculated Kilograms) 59.4 Weight (Calculated Grams) 55292.6 [place] Body Weight 105 Weight Status Approriate GI Symptoms Skin Integrity/Comment: Simone Joshi. Wound care: skin is fair, erythema from IAD at anu-area Estimated Nutritional Goals BEE in Kcals: Using Current wt Calories/Kcals/Kg CBW 137.8lb/62.6kg Kcals Calculated 1565-1878kcal (25-30kcal/kg) Protein: Using Current wt Protein Calculated 63-75g (1-1.2g/kg) Fluid: ml 1565-1878ml (1ml/kcal) Nutritional Problem 1. Problem Problem Swallowing difficulty related to Etiology dysphagia aeb Signs/Symptoms: peg dependent Intervention/Recommendation Comments 1. Recommend Nutren Pulmonary at 50ml/hrs x 20hrs, providing 1000ml total volume, 1500kcal , and 68g protein, meeting 100 % of lower end of estimated nutritional needs. Initiate at current rate 30ml/hr, monitor tolerance, increase 10ml/hr to goal rate as pt tolerates. Tube feeding at [facility]: Pulmocare at 60ml/hrs x 20hrs, providing 1200ml total volume, 1800kcal, and 82gm protein. Expected Outcomes/Goals Expected Outcomes/Goals 1. Pt to meet 100% of estimated nutritional needs on tube feeding with tolerance.
[2016-10-29] MEDS: Albuterol/Ipratropium Neb 3 ML AERS HHN SCH ×6 (03:06→23:34)
[2016-10-29] MEDS: Sodium Chloride 0.9% 1,000 ML IV SCH (04:15)
[2016-10-29] MEDS: Budesonide 0.5 Mg/2 mL Ud HHN SCH ×2 (07:11→19:03)
[2016-10-29] MEDS: Chlorhexidine Gluconate 0.12% 15mL Mouthwash MM SCH ×2 (08:35→20:35)
[2016-10-29] MEDS: Lactobacillus Rhamnosus 10 Billion CFU Capsule PO SCH (09:36)
[2016-10-29] MEDS: Ferrous Sulfate 300 MG/5 ML UDC GT SCH ×2 (09:37→16:53)
[2016-10-29] MEDS: Sulfamethoxazole/TMP 800/160mg Tab PO SCH ×2 (09:37→16:54)
[2016-10-29] MEDS: Pantoprazole 40 mg/Packet GT SCH (09:37)
[2016-10-29] MEDS: Docusate Sodium 100 mg/10 mL UD PO SCH (09:38)
[2016-10-29] MEDS: Enoxaparin 30 mg/0.3 mL 0.3mL Syr SUBQ SCH (09:40)
--- NOTE | 2016-10-29 10:34 | Diagnostic Imaging Report ---
Portable chest x-ray HISTORY: Shortness of breath Compared with prior exam of October 28, 2016, increasing density in the left hemithorax suggest an increase in the left pleural effusion. The heart remains enlarged. IMPRESSION: 1. Findings suggesting an increasing left pleural effusion
--- NOTE | 2016-10-29 10:44 | Diagnostic Imaging Report ---
Portable chest x-ray HISTORY: Shortness of breath Compared to prior exam of October 26, 2016, the heart is enlarged. No definite acute focal prominent processes are seen. Tracheostomy noted. IMPRESSION 1. No definite acute focal pulmonary processes 2. Tracheostomy 3. Multiple metallic densities noted about the right clavicle
--- NOTE | 2016-10-29 10:45 | Diagnostic Imaging Report ---
Right RIBS (4 views) HISTORY: Pain No acute bony abnormalities. No fractures. No acute pulmonary parenchymal or pleural abnormality. Multiple metallic densities noted in the periclavicular region on the right side. IMPRESSION: 1. No acute abnormalities
[2016-10-29] MEDS: INSULIN ASPART SLIDING SCALE 100 UNITS/ML UNIT SUBQ SCH ×3 (12:00→21:34)
--- NOTE | 2016-10-29 15:07 | Infectious Disease Prog Note ---
Infectious Disease Subjective - Review of Systems Service Date: 10/29/16 Subjective: no new change, there is no fever. Remains on the vent. s/p trach and peg. Very minimal ET secretions. Infectious Disease Objective - Results Result Diagrams: 10/27/16 05:02 10/27/16 05:02 Recent Labs: Laboratory Last Values WBC 9.7 Th/cmm (4.8-10.8) 10/27/16 05:02 RBC 2.89 Mil/cmm (3.80-5.20) L 10/27/16 05:02 Hgb 9.6 gm/dL (11.7-16.1) L 10/27/16 05:02 Hct 27.4 % (35.0-45.0) L 10/27/16 05:02 MCV 94.9 fl (81-100) 10/27/16 05:02 MCH 33.4 pg (27.0-31.0) H 10/27/16 05:02 MCHC Differential 35.2 pg (28.0-36.0) 10/27/16 05:02 RDW 14.5 % (11.5-20.0) 10/27/16 05:02 Plt Count 213 Th/cmm (150-400) 10/27/16 05:02 MPV 7.4 fl 10/27/16 05:02 Neutrophils % 75.9 % (40.0-80.0) 10/27/16 05:02 Lymphocytes % 13.9 % (20.0-50.0) L 10/27/16 05:02 Monocytes % 8.6 % (2.0-10.0) 10/27/16 05:02 Eosinophils % 1.4 % (0.0-5.0) 10/27/16 05:02 Basophils % 0.2 % (0.0-2.0) 10/27/16 05:02 PT 10.3 SECONDS (9.5-11.5) 10/26/16 06:12 INR 0.99 (0.5-1.4) 10/26/16 06:12 PTT (Actin FS) 22.9 SECONDS (26.0-38.0) L 10/26/16 06:12 Specimen Source Arterial 10/27/16 09:35 Sample Site Left Radial 10/27/16 09:35 pH 7.47 (7.35-7.45) H 10/27/16 09:35 pCO2 41.0 mmHg (35.0-45.0) 10/27/16 09:35 pO2 114.0 mmHg (80.0-100.0) H 10/27/16 09:35 HCO3 29.3 mEq/L (20.0-26.0) H 10/27/16 09:35 Base Excess 5.6 mEq/L (-3.0-3.0) H 10/27/16 09:35 O2 Saturation 99.0 % (92.0-100.0) 10/27/16 09:35 Antonio Test YES 10/27/16 09:35 Vent Rate 10 10/27/16 09:35 Inspired O2 32 10/27/16 09:35 Tidal Volume 400 10/27/16 09:35 PEEP 5 10/27/16 09:35 Pressure (ins/psv/peep) 15 10/27/16 09:35 Critical Value E.MELISSA 10/27/16 09:35 Sodium 134 mEq/L (136-145) L 10/27/16 05:02 Potassium 3.6 mEq/L (3.5-5.1) 10/27/16 05:02 Chloride 102 mEq/L (98-107) 10/27/16 05:02 Carbon Dioxide 26.2 mEq/L (21.0-31.0) 10/27/16 05:02 Anion Gap 9.4 (7.0-16.0) 10/27/16 05:02 BUN 36 mg/dL (7-25) H 10/27/16 05:02 Creatinine 0.9 mg/dL (0.6-1.2) 10/27/16 05:02 Est GFR ( Amer) TNP 10/27/16 05:02 Est GFR (Non-Af Amer) TNP 10/27/16 05:02 BUN/Creatinine Ratio 40.0 10/27/16 05:02 Glucose 144 mg/dL (70-105) H 10/27/16 05:02 POC Glucose 115 MG/DL (70 - 105) H 10/29/16 11:54 Whole Bld Lactic Acid 1.41 mmol/L (0.60-1.99) 10/26/16 06:55 Calcium 9.4 mg/dL (8.6-10.3) 10/27/16 05:02 Total Bilirubin 0.7 mg/dL (0.3-1.0) 10/27/16 05:02 AST 29 U/L (13-39) 10/27/16 05:02 ALT 23 U/L (7-52) 10/27/16 05:02 Alkaline Phosphatase 71 U/L (34-104) 10/27/16 05:02 Creatine Kinase 51 U/L (30-223) 10/26/16 06:12 CK-MB (CK-2) 1.5 ng/mL (0.6-6.3) 10/26/16 06:12 Troponin I 0.03 ng/mL (0.01-0.05) 10/27/16 00:36 B-Natriuretic Peptide 213.0 pg/mL (5.0-100.0) H 10/26/16 06:12 Total Protein 7.6 gm/dL (6.0-8.3) 10/27/16 05:02 Albumin 3.3 gm/dL (3.7-5.3) L 10/27/16 05:02 Globulin 4.3 gm/dL 10/27/16 05:02 Albumin/Globulin Ratio 0.8 (1.0-1.8) L 10/27/16 05:02 Amylase 48 U/L (29-103) 10/26/16 06:12 Lipase 45 U/L (11-82) 10/26/16 06:12 TSH 2.16 uIU/ml (0.34-5.60) 10/26/16 10:05 Urine Source CATH 10/26/16 06:30 Urine Color YELLOW 10/26/16 06:30 Urine Clarity CLEAR (CLEAR) 10/26/16 06:30 Urine pH 6.5 10/26/16 06:30 Ur Specific [place] 1.020 (1.005-1.030) 10/26/16 06:30 Urine Protein 100 mg/dL (NEGATIVE) H 10/26/16 06:30 Urine Glucose (UA) NEGATIVE mg/dL (NEGATIVE) 10/26/16 06:30 Urine Ketones NEGATIVE mg/dL (NEGATIVE) 10/26/16 06:30 Urine Blood TRACE (NEGATIVE) 10/26/16 06:30 Urine Nitrate NEGATIVE (NEGATIVE) 10/26/16 06:30 Urine Bilirubin NEGATIVE (NEGATIVE) 10/26/16 06:30 Urine Urobilinogen 0.2 E.U./dL (0.2 - 1.0) 10/26/16 06:30 Ur Leukocyte Esterase SMALL (NEGATIVE) H 10/26/16 06:30 Urine RBC 2-5 /hpf (0-5) 10/26/16 06:30 Urine WBC 10-25 /hpf (0-5) H 10/26/16 06:30 Ur Epithelial Cells FEW /lpf (FEW) 10/26/16 06:30 Urine Bacteria MODERATE /hpf (NONE SEEN) 10/26/16 06:30 Gentamicin Peak 8.7 ug/ml (4.0-8.0) 10/28/16 19:10 Gentamicin Trough ug/ml (0.2-2.0) 10/28/16 13:18 Vancomycin Trough 15.3 ug/mL (10-20) 10/28/16 13:18 - Physical Exam Vitals and I&O: Vital Signs Temp 97.2 F 10/29/16 13:00 Pulse 89 10/29/16 13:00 Resp 20 10/29/16 13:00 BP 126/63 10/29/16 13:00 Pulse Ox 100 10/29/16 14:00 Intake & Output 10/28/16 10/29/16 10/29/16 18:59 06:59 18:59 Intake Total 2080 610 40 Output Total 800 1480 Balance 1280 -870 40 Intake: Intake, IV Amount 1250 Sodium Chloride 0.9% 1, 1000 000 ml @ 100 mls/hr IV . Q10H [facility] Rx#:[id number] Vancomycin HCl 1.25 gm In 250 Sodium Chloride 0.9% 250 ml @ 165 mls/hr IV Q24H [facility] Rx#:[id number] Oral 10 Tube Feeding 420 480 40 Other 400 130 Output: Urine 800 1480 Other: # Bowel Movements 0 Active Medications: Current Medications Acetaminophen (Tylenol) 650 mg PO Q4H PRN PRN Reason: Mild Pain/Headache/T above 101 Stop: 12/25/16 08:21 Acetylcysteine (Mucomyst 20%) 2 ml HHN Q4HRT [facility] Stop: 12/25/16 14:59 Last Admin: 10/29/16 15:01 Dose: 2 ml Albuterol Sulfate (Albuterol 2.5mg/3ml Neb Ud) 2.5 mg HHN Q2HR PRN PRN Reason: Shortness of Breath Stop: 12/25/16 08:21 Albuterol/Ipratropium (Duoneb Neb) 3 ml HHN Q4HRT [facility] Stop: 12/25/16 14:59 Last Admin: 10/29/16 15:01 Dose: 3 ml Amiodarone HCl (Cordarone) 200 mg GT DAILY [facility] Stop: 12/25/16 08:59 Last Admin: 10/29/16 09:38 Dose: 200 mg Budesonide (Pulmicort) 0.5 mg HHN BIDRT [facility] Stop: 12/25/16 09:44 Last Admin: 10/29/16 07:11 Dose: 0.5 mg Chlorhexidine Gluconate (Peridex) 15 ml MM 0800,2000 [facility] Stop: 12/26/16 19:59 Last Admin: 10/29/16 08:35 Dose: 15 ml Docusate Sodium (Colace) 100 mg PO DAILY [facility] Stop: 12/28/16 08:59 Last Admin: 10/29/16 09:38 Dose: 100 mg Enoxaparin Sodium (Lovenox) 30 mg SUBQ DAILY [facility] Stop: 12/25/16 08:59 Last Admin: 10/29/16 09:40 Dose: 30 mg Ferrous Sulfate (Iron) 330 mg GT BID [facility] Stop: 12/25/16 08:59 Last Admin: 10/29/16 09:37 Dose: 330 mg Sodium Chloride (Nacl 0.9%) 1,000 mls @ 100 mls/hr IV .Q10H [facility] Stop: 12/25/16 08:29 Last Admin: 10/29/16 04:15 Dose: 100 mls/hr Gentamicin Sulfate 120 mg/ (Sodium Chloride) 103 mls @ 100 mls/hr IV Q24H [facility] Stop: 12/25/16 17:59 Last Admin: 10/28/16 17:20 Dose: 100 mls/hr Insulin Aspart (Novolog Insulin Sliding Scale) 0 units SUBQ ACHS [facility] PRN Reason: Protocol Stop: 12/25/16 11:29 Last Admin: 10/29/16 12:00 Dose: Not Given Lactobacillus Rhamnosus (Culturelle) 1 each PO DAILY [facility] Stop: 12/27/16 08:59 Last Admin: 10/29/16 09:36 Dose: 1 each Lorazepam (Ativan) 1 mg IVP Q4H PRN; Protocol PRN Reason: Anxiety/Agitation Stop: 12/25/16 08:21 Miscellaneous (Gentamicin Iv Per Pharmacy) 1 ea PRN PRN PRN Reason: PROTOCOL Stop: 12/25/16 15:14 Miscellaneous (Probiotic Screen) 1 ea PRN PRN PRN Reason: PROTOCOL Stop: 12/26/16 09:50 Morphine Sulfate (Morphine) 2 mg IVP Q4H PRN PRN Reason: Severe Pain Stop: 12/25/16 08:21 Last Admin: 10/29/16 09:20 Dose: 2 mg Ondansetron HCl (Zofran) 4 mg IVP Q6H PRN PRN Reason: Nausea / Vomiting Stop: 12/25/16 08:21 Pantoprazole Sodium (Protonix) 40 mg GT DAILY [facility] Stop: 12/25/16 08:59 Last Admin: 10/29/16 09:37 Dose: 40 mg Trimethoprim/Sulfamethoxazole (Bactrim Ds) 1 tab PO BID [facility] Stop: 12/28/16 08:59 Last Admin: 10/29/16 09:37 Dose: 1 tab General: no acute distress, well developed, well nourished HEENT: atraumatic, normocephalic, PERRLA, EOMI Neck: supple, tracheostomy Cardiovascular: S1S2, regular Lungs: clear to auscultation bilaterally, clear to percussion Abdomen: soft, bowel sounds, other (peg), no tender, no distended, no mass Extremities: no cyanosis, no clubbing, no edema, no lines Neurological: awake - Procedures Procedures: Procedures Procedure Code Date CHANGE TRACHEOSTOMY DEVICE IN TRACHEA, EXTERNAL APPROACH [id number] 09/29/16 INSERTION OF FEEDING DEVICE INTO STOMACH, ENDO [id number] 09/29/16 REMOVAL OF FEEDING DEVICE FROM STOMACH, EXTERNAL APPROACH [id number] 09/29/16 RESPIRATORY VENTILATION, 24-96 CONSECUTIVE HOURS [id number] 10/26/16 RESPIRATORY VENTILATION, GREATER THAN 96 CONSECUTIVE HOURS [id number] 09/29/16 TRANSFUSE NONAUT RED BLOOD CELLS IN PERIPH VEIN, PERC 98482S1 09/29/16 VENT MGMT INPAT INIT DAY 10/26/16 VENT MGMT INPAT SUBQ DAY 10/26/16 Infectious Disease Assmt/Plan - Assessment Assessment: 1. pneumonia sputum culture grew Stenotrophomonas and Pseudomonas. 2. UTI. 3. VDRF. 4. dementia. 5. HTN. 6. Dysphagia 7. Asthma/COPD. 8. CAD. - Plan Plan: Continue bactrim ds and genta for total 8 days. Nutritional Asmnt/Malnutr-PDOC - Dietary Evaluation Malnutrition Findings (Please click <Entered> for more info): Nutritional Asmnt/Malnutrition Start: 10/26/16 11: 37 Text: Status: Complete Freq: Document 10/26/16 11:39 GSUN (Rec: 10/26/16 11:42 GSUN [email or web address]) Nutritional Asmnt/Malnutrition Patient General Information Nutritional Screening Consult Diagnosis ER: respiratory distress, hypoxemia, dehydration, vent dependent Pertinent Medical Hx/Surgical Hx ER: HTN, asthma/COPD, chronic resp failure, TIA, CVA, dysphagia following nontraumatic ictracerebral hemorrhage, PNA Subjective Information 86 year old female. Pt was admitted to [facility] recently . RD consult for Simone Joshi. Pt seen resting with eyes closed. Bedscale weight 137. 8lb, 131.5lb 2 weeks ago, questionable weight difference . Diet order for Diabetisource 30ml/hr. Tube feeding bag not hanging yet, RN made aware. Tube feeding at SNF: [facility] at 60ml/hrs x 20hrs, providing 1200ml total volumes , 1800kcal, and 82gm protein. Current Diet Order/ Nutrition Support Doabetisource 30ml/hr Pertinent Medications Iron, Novolog, Vancomycin, Morphine, Zofran, Protonix Pertinent Labs 10/26: glucose 151H, BUN 41H Nutritional Hx/Data Height 1.55 m Height (Calculated Centimeters) 154.9 Current Weight (lbs) 59.421 kg Weight (Calculated Kilograms) 59.4 Weight (Calculated Grams) 23408.6 [place] Body Weight 105 Weight Status Approriate GI Symptoms Skin Integrity/Comment: Simone Joshi. Wound care: skin is fair, erythema from IAD at anu-area Estimated Nutritional Goals BEE in Kcals: Using Current wt Calories/Kcals/Kg CBW 137.8lb/62.6kg Kcals Calculated 1565-1878kcal (25-30kcal/kg) Protein: Using Current wt Protein Calculated 63-75g (1-1.2g/kg) Fluid: ml 1565-1878ml (1ml/kcal) Nutritional Problem 1. Problem Problem Swallowing difficulty related to Etiology dysphagia aeb Signs/Symptoms: peg dependent Intervention/Recommendation Comments 1. Recommend [facility]ren [facility] at 50ml/hrs x 20hrs, providing 1000ml total volume, 1500kcal , and 68g protein, meeting 100 % of lower end of estimated nutritional needs. Initiate at current rate 30ml/hr, monitor tolerance, increase 10ml/hr to goal rate as pt tolerates. Tube feeding at [facility]: [facility] at 60ml/hrs x 20hrs, providing 1200ml total volume, 1800kcal, and 82gm protein. Expected Outcomes/Goals Expected Outcomes/Goals 1. Pt to meet 100% of estimated nutritional needs on tube feeding with tolerance.
[2016-10-30] MEDS: Sodium Chloride 0.9% 1,000 ML IV SCH (01:09)
[2016-10-30] MEDS: Albuterol/Ipratropium Neb 3 ML AERS HHN SCH ×4 (02:57→14:50)
[2016-10-30 05:29] LABS: ALB/GLOB RATIO 0.9 (1.0-1.8); ALKALINE PHOSPHATASE 65 U/L (34-104); ANION GAP 8.5 (7.0-16.0); BILIRUBIN,TOTAL 0.9 mg/dL (0.3-1.0); BUN - UREA NITROGEN 21 mg/dL (7-25); CALCIUM SERUM 9.1 mg/dL (8.6-10.3); CHLORIDE 113 mEq/L (98-107); CREATININE - SERUM 0.7 mg/dL (0.6-1.2); GLUCOSE 143 mg/dL (70-105); POTASSIUM SERUM 3.5 mEq/L (3.5-5.1); SGOT 18 U/L (13-39); SGPT/ALT 16 U/L (7-52); SODIUM SERUM 140 mEq/L (136-145)
[2016-10-30 05:34] LABS: HEMATOCRIT 24.6 % (35.0-45.0); HEMOGLOBIN 8.8 gm/dL (11.7-16.1); MEAN CELL VOLUME 98.7 fl (81-100); MEAN CORPUSCULAR HEMOGLOBIN 35.5 pg (27.0-31.0); MEAN PLATELET VOLUME 7.8 fl; PLATELET COUNT 198 Th/cmm (150-400); RED BLOOD COUNT 2.49 Mil/cmm (3.80-5.20); RED CELL DISTRIBUTION WIDTH 15.2 % (11.5-20.0); WHITE BLOOD COUNT 11.6 Th/cmm (4.8-10.8)
[2016-10-30 06:06] LABS: BAND NEUTROPHILE 3 % (0-10); NEUTROPHILS 87 % (40-80); PLATELET ESTIMATE ADEQUATE (NORMAL); TOTAL CELLS COUNTED 100
[2016-10-30 06:07] LABS: POLYCHROMASIA 1+
[2016-10-30] MEDS: Budesonide 0.5 Mg/2 mL Ud HHN SCH (06:59)
[2016-10-30] MEDS: INSULIN ASPART SLIDING SCALE 100 UNITS/ML UNIT SUBQ SCH ×3 (08:47→16:28)
[2016-10-30] MEDS: Lactobacillus Rhamnosus 10 Billion CFU Capsule PO SCH (08:48)
[2016-10-30] MEDS: Ferrous Sulfate 300 MG/5 ML UDC GT SCH ×2 (08:48→16:29)
[2016-10-30] MEDS: Docusate Sodium 100 mg/10 mL UD PO SCH (08:48)
[2016-10-30] MEDS: Pantoprazole 40 mg/Packet GT SCH (08:49)
[2016-10-30] MEDS: Chlorhexidine Gluconate 0.12% 15mL Mouthwash MM SCH (08:49)
[2016-10-30] MEDS: Enoxaparin 30 mg/0.3 mL 0.3mL Syr SUBQ SCH (08:49)
[2016-10-30] MEDS: Sulfamethoxazole/TMP 800/160mg Tab PO SCH ×2 (08:51→16:29)
--- NOTE | 2016-10-31 10:53 | Infectious Disease Prog Note ---
Infectious Disease Subjective - Review of Systems Service Date: 10/31/16 Subjective: no new change, there is no fever. Remains on the vent. s/p trach and peg. Very minimal ET secretions. Infectious Disease Objective - Results Result Diagrams: 10/30/16 04:23 10/30/16 04:23 Recent Labs: Laboratory Last Values WBC 11.6 Th/cmm (4.8-10.8) H 10/30/16 04:23 RBC 2.49 Mil/cmm (3.80-5.20) L 10/30/16 04:23 Hgb 8.8 gm/dL (11.7-16.1) L 10/30/16 04:23 Hct 24.6 % (35.0-45.0) L 10/30/16 04:23 MCV 98.7 fl (81-100) 10/30/16 04:23 MCH 35.5 pg (27.0-31.0) H 10/30/16 04:23 MCHC Differential 36.0 pg (28.0-36.0) 10/30/16 04:23 RDW 15.2 % (11.5-20.0) 10/30/16 04:23 Plt Count 198 Th/cmm (150-400) 10/30/16 04:23 MPV 7.8 fl 10/30/16 04:23 Neutrophils % 75.9 % (40.0-80.0) 10/27/16 05:02 Band Neutrophils % 3 % (0-10) 10/30/16 04:23 Lymphocytes % 13.9 % (20.0-50.0) L 10/27/16 05:02 Monocytes % 8.6 % (2.0-10.0) 10/27/16 05:02 Eosinophils % 1.4 % (0.0-5.0) 10/27/16 05:02 Basophils % 0.2 % (0.0-2.0) 10/27/16 05:02 Neutrophils (Manual) 87 % (40-80) H 10/30/16 04:23 Lymphocytes 6 % (20-50) L 10/30/16 04:23 Monocytes 4 % (2-10) 10/30/16 04:23 Platelet Estimate ADEQUATE (NORMAL) 10/30/16 04:23 Polychromasia 1+ 10/30/16 04:23 PT 10.3 SECONDS (9.5-11.5) 10/26/16 06:12 INR 0.99 (0.5-1.4) 10/26/16 06:12 PTT (Actin FS) 22.9 SECONDS (26.0-38.0) L 10/26/16 06:12 Specimen Source Arterial 10/27/16 09:35 Sample Site Left Radial 10/27/16 09:35 pH 7.47 (7.35-7.45) H 10/27/16 09:35 pCO2 41.0 mmHg (35.0-45.0) 10/27/16 09:35 pO2 114.0 mmHg (80.0-100.0) H 10/27/16 09:35 HCO3 29.3 mEq/L (20.0-26.0) H 10/27/16 09:35 Base Excess 5.6 mEq/L (-3.0-3.0) H 10/27/16 09:35 O2 Saturation 99.0 % (92.0-100.0) 10/27/16 09:35 Antonio Test YES 10/27/16 09:35 Vent Rate 10 10/27/16 09:35 Inspired O2 32 10/27/16 09:35 Tidal Volume 400 10/27/16 09:35 PEEP 5 10/27/16 09:35 Pressure (ins/psv/peep) 15 10/27/16 09:35 Critical Value E.MELISSA 10/27/16 09:35 Sodium 140 mEq/L (136-145) 10/30/16 04:23 Potassium 3.5 mEq/L (3.5-5.1) 10/30/16 04:23 Chloride 113 mEq/L (98-107) H 10/30/16 04:23 Carbon Dioxide 22.0 mEq/L (21.0-31.0) 10/30/16 04:23 Anion Gap 8.5 (7.0-16.0) 10/30/16 04:23 BUN 21 mg/dL (7-25) 10/30/16 04:23 Creatinine 0.7 mg/dL (0.6-1.2) 10/30/16 04:23 Est GFR ( Amer) TNP 10/30/16 04:23 Est GFR (Non-Af Amer) TNP 10/30/16 04:23 BUN/Creatinine Ratio 30.0 10/30/16 04:23 Glucose 143 mg/dL (70-105) H 10/30/16 04:23 POC Glucose 121 MG/DL (70 - 105) H 10/30/16 16:26 Whole Bld Lactic Acid 1.41 mmol/L (0.60-1.99) 10/26/16 06:55 Calcium 9.1 mg/dL (8.6-10.3) 10/30/16 04:23 Total Bilirubin 0.9 mg/dL (0.3-1.0) 10/30/16 04:23 AST 18 U/L (13-39) 10/30/16 04:23 ALT 16 U/L (7-52) 10/30/16 04:23 Alkaline Phosphatase 65 U/L (34-104) 10/30/16 04:23 Creatine Kinase 51 U/L (30-223) 10/26/16 06:12 CK-MB (CK-2) 1.5 ng/mL (0.6-6.3) 10/26/16 06:12 Troponin I 0.03 ng/mL (0.01-0.05) 10/27/16 00:36 B-Natriuretic Peptide 213.0 pg/mL (5.0-100.0) H 10/26/16 06:12 Total Protein 7.2 gm/dL (6.0-8.3) 10/30/16 04:23 Albumin 3.3 gm/dL (3.7-5.3) L 10/30/16 04:23 Globulin 3.9 gm/dL 10/30/16 04:23 Albumin/Globulin Ratio 0.9 (1.0-1.8) L 10/30/16 04:23 Amylase 48 U/L (29-103) 10/26/16 06:12 Lipase 45 U/L (11-82) 10/26/16 06:12 TSH 2.16 uIU/ml (0.34-5.60) 10/26/16 10:05 Urine Source CATH 10/26/16 06:30 Urine Color YELLOW 10/26/16 06:30 Urine Clarity CLEAR (CLEAR) 10/26/16 06:30 Urine pH 6.5 10/26/16 06:30 Ur Specific [place] 1.020 (1.005-1.030) 10/26/16 06:30 Urine Protein 100 mg/dL (NEGATIVE) H 10/26/16 06:30 Urine Glucose (UA) NEGATIVE mg/dL (NEGATIVE) 10/26/16 06:30 Urine Ketones NEGATIVE mg/dL (NEGATIVE) 10/26/16 06:30 Urine Blood TRACE (NEGATIVE) 10/26/16 06:30 Urine Nitrate NEGATIVE (NEGATIVE) 10/26/16 06:30 Urine Bilirubin NEGATIVE (NEGATIVE) 10/26/16 06:30 Urine Urobilinogen 0.2 E.U./dL (0.2 - 1.0) 10/26/16 06:30 Ur Leukocyte Esterase SMALL (NEGATIVE) H 10/26/16 06:30 Urine RBC 2-5 /hpf (0-5) 10/26/16 06:30 Urine WBC 10-25 /hpf (0-5) H 10/26/16 06:30 Ur Epithelial Cells FEW /lpf (FEW) 10/26/16 06:30 Urine Bacteria MODERATE /hpf (NONE SEEN) 10/26/16 06:30 Gentamicin Peak 8.7 ug/ml (4.0-8.0) 10/28/16 19:10 Gentamicin Trough ug/ml (0.2-2.0) 10/28/16 13:18 Vancomycin Trough 15.3 ug/mL (10-20) 10/28/16 13:18 - Physical Exam Vitals and I&O: Vital Signs Temp 99.1 F 10/30/16 16:00 Pulse 87 10/30/16 18:00 Resp 16 10/30/16 18:00 BP 128/67 10/30/16 18:00 Pulse Ox 98 10/30/16 17:07 Intake & Output 10/30/16 10/31/16 10/31/16 18:59 06:59 18:59 Intake Total 653 Output Total 1200 Balance -547 Intake: Intake, IV Amount 103 Gentamicin 120 mg In 103 Sodium Chloride 0.9% 100 ml @ 100 mls/hr IV Q24H [facility] Rx#:[id number] Oral 50 Tube Feeding 440 Other 60 Output: Urine 1200 Active Medications: Current Medications Acetaminophen (Tylenol) 650 mg PO Q4H PRN PRN Reason: Mild Pain/Headache/T above 101 Stop: 12/25/16 08:21 Acetylcysteine (Mucomyst 20%) 2 ml HHN Q4HRT [facility] Stop: 12/25/16 14:59 Last Admin: 10/30/16 14:51 Dose: 2 ml Albuterol Sulfate (Albuterol 2.5mg/3ml Neb Ud) 2.5 mg HHN Q2HR PRN PRN Reason: Shortness of Breath Stop: 12/25/16 08:21 Albuterol/Ipratropium (Duoneb Neb) 3 ml HHN Q4HRT [facility] Stop: 12/25/16 14:59 Last Admin: 10/30/16 14:50 Dose: 3 ml Amiodarone HCl (Cordarone) 200 mg GT DAILY [facility] Stop: 12/25/16 08:59 Last Admin: 10/30/16 08:48 Dose: 200 mg Budesonide (Pulmicort) 0.5 mg HHN BIDRT [facility] Stop: 12/25/16 09:44 Last Admin: 10/30/16 06:59 Dose: 0.5 mg Chlorhexidine Gluconate (Peridex) 15 ml MM 799,1999 [facility] Stop: 12/26/16 19:59 Last Admin: 10/30/16 08:49 Dose: 15 ml Docusate Sodium (Colace) 100 mg PO DAILY [facility] Stop: 12/28/16 08:59 Last Admin: 10/30/16 08:48 Dose: 100 mg Enoxaparin Sodium (Lovenox) 30 mg SUBQ DAILY [facility] Stop: 12/25/16 08:59 Last Admin: 10/30/16 08:49 Dose: 30 mg Ferrous Sulfate (Iron) 330 mg GT BID [facility] Stop: 12/25/16 08:59 Last Admin: 10/30/16 16:29 Dose: 330 mg Sodium Chloride (Nacl 0.9%) 1,000 mls @ 100 mls/hr IV .Q10H [facility] Stop: 12/25/16 08:29 Last Admin: 10/30/16 01:09 Dose: 100 mls/hr Gentamicin Sulfate 120 mg/ (Sodium Chloride) 103 mls @ 100 mls/hr IV Q24H [facility] Stop: 12/25/16 17:59 Last Infusion: 10/30/16 18:23 Dose: Infused Insulin Aspart (Novolog Insulin Sliding Scale) 0 units SUBQ ACHS [facility] PRN Reason: Protocol Stop: 12/25/16 11:29 Last Admin: 10/30/16 16:28 Dose: Not Given Lactobacillus Rhamnosus (Culturelle) 1 each PO DAILY [facility] Stop: 12/27/16 08:59 Last Admin: 10/30/16 08:48 Dose: 1 each Lorazepam (Ativan) 1 mg IVP Q4H PRN; Protocol PRN Reason: Anxiety/Agitation Stop: 12/25/16 08:21 Miscellaneous (Gentamicin Iv Per Pharmacy) 1 ea PRN PRN PRN Reason: PROTOCOL Stop: 12/25/16 15:14 Miscellaneous (Probiotic Screen) 1 ea PRN PRN PRN Reason: PROTOCOL Stop: 12/26/16 09:50 Morphine Sulfate (Morphine) 2 mg IVP Q4H PRN PRN Reason: Severe Pain Stop: 12/25/16 08:21 Last Admin: 10/29/16 09:20 Dose: 2 mg Ondansetron HCl (Zofran) 4 mg IVP Q6H PRN PRN Reason: Nausea / Vomiting Stop: 12/25/16 08:21 Pantoprazole Sodium (Protonix) 40 mg GT DAILY [facility] Stop: 12/25/16 08:59 Last Admin: 10/30/16 08:49 Dose: 40 mg Trimethoprim/Sulfamethoxazole (Bactrim Ds) 1 tab PO BID [facility] Stop: 12/28/16 08:59 Last Admin: 10/30/16 16:29 Dose: 1 tab General: no acute distress, well developed, well nourished HEENT: atraumatic, normocephalic, PERRLA, EOMI Neck: supple, tracheostomy Cardiovascular: S1S2, regular Lungs: clear to auscultation bilaterally, clear to percussion Abdomen: soft, no tender, no distended Extremities: no cyanosis, no clubbing, no edema Neurological: awake Skin: intact - Procedures Procedures: Procedures Procedure Code Date CHANGE TRACHEOSTOMY DEVICE IN TRACHEA, EXTERNAL APPROACH [id number] 09/29/16 INSERTION OF FEEDING DEVICE INTO STOMACH, ENDO [id number] 09/29/16 REMOVAL OF FEEDING DEVICE FROM STOMACH, EXTERNAL APPROACH [id number] 09/29/16 RESPIRATORY VENTILATION, GREATER THAN 96 CONSECUTIVE HOURS [id number] 10/26/16 TRANSFUSE NONAUT RED BLOOD CELLS IN PERIPH VEIN, PERC 60417R3 09/29/16 VENT MGMT INPAT INIT DAY 10/26/16 VENT MGMT INPAT SUBQ DAY 10/26/16 Infectious Disease Assmt/Plan - Assessment Assessment: 1. pneumonia sputum culture grew Stenotrophomonas and Pseudomonas. 2. UTI. 3. VDRF. 4. dementia. 5. HTN. 6. Dysphagia 7. Asthma/COPD. 8. CAD. - Plan Plan: Continue bactrim ds and genta for total 8 days. Nutritional Asmnt/Malnutr-PDOC - Dietary Evaluation Malnutrition Findings (Please click <Entered> for more info): Nutritional Asmnt/Malnutrition Start: 10/26/16 11: 37 Text: Status: Complete Freq: Document 10/26/16 11:39 GSUN (Rec: 10/26/16 11:42 GSUN [email or web address]) Nutritional Asmnt/Malnutrition Patient General Information Nutritional Screening Consult Diagnosis ER: respiratory distress, hypoxemia, dehydration, vent dependent Pertinent Medical Hx/Surgical Hx ER: HTN, asthma/COPD, chronic resp failure, TIA, CVA, dysphagia following nontraumatic ictracerebral hemorrhage, PNA Subjective Information 86 year old female. Pt was admitted to [facility] recently . RD consult for Simone Joshi. Pt seen resting with eyes closed. Bedscale weight 137. 8lb, 131.5lb 2 weeks ago, questionable weight difference . Diet order for Diabetisource 30ml/hr. Tube feeding bag not hanging yet, RN made aware. Tube feeding at SNF: Pulmocare at 60ml/hrs x 20hrs, providing 1200ml total volumes , 1800kcal, and 82gm protein. Current Diet Order/ Nutrition Support Doabetisource 30ml/hr Pertinent Medications Iron, Novolog, Vancomycin, Morphine, Zofran, Protonix Pertinent Labs 10/26: glucose 151H, BUN 41H Nutritional Hx/Data Height 1.55 m Height (Calculated Centimeters) 154.9 Current Weight (lbs) 59.421 kg Weight (Calculated Kilograms) 59.4 Weight (Calculated Grams) 53690.6 Ensign Body Weight 105 Weight Status Approriate GI Symptoms Skin Integrity/Comment: Simone Joshi. Wound care: skin is fair, erythema from IAD at anu-area Estimated Nutritional Goals BEE in Kcals: Using Current wt Calories/Kcals/Kg CBW 137.8lb/62.6kg Kcals Calculated 1565-1878kcal (25-30kcal/kg) Protein: Using Current wt Protein Calculated 63-75g (1-1.2g/kg) Fluid: ml 1565-1878ml (1ml/kcal) Nutritional Problem 1. Problem Problem Swallowing difficulty related to Etiology dysphagia aeb Signs/Symptoms: peg dependent Intervention/Recommendation Comments 1. Recommend Nutren Pulmonary at 50ml/hrs x 20hrs, providing 1000ml total volume, 1500kcal , and 68g protein, meeting 100 % of lower end of estimated nutritional needs. Initiate at current rate 30ml/hr, monitor tolerance, increase 10ml/hr to goal rate as pt tolerates. Tube feeding at SNF: Pulmocare at 60ml/hrs x 20hrs, providing 1200ml total volume, 1800kcal, and 82gm protein. Expected Outcomes/Goals Expected Outcomes/Goals 1. Pt to meet 100% of estimated nutritional needs on tube feeding with tolerance.
== END 2016-10-30 19:30 | DRG 207 ==
LOC: ER 06:00 → ICU 08:00
PROVIDERS: ADMIT Internal Medicine; ATTEND Internal Medicine
PROC: 5A1955Z Respiratory Ventilation, Greater than 96 Consecutive Hours (ICD-10-PCS; principal; 2016-10-26)
DX: J96.21 Acute and chronic respiratory failure with hypoxia (principal); J95.851 Ventilator associated pneumonia; I11.0 Hypertensive heart disease with heart failure; Z93.0 Tracheostomy status; R13.10 Dysphagia, unspecified; N39.0 Urinary tract infection, site not specified; I48.91 Unspecified atrial fibrillation; I50.9 Heart failure, unspecified; J44.9 Chronic obstructive pulmonary disease, unspecified; Z99.11 Dependence on respirator [ventilator] status; I25.10 Atherosclerotic heart disease of native coronary artery without angina pectoris; M19.90 Unspecified osteoarthritis, unspecified site; T17.990A Other foreign object in respiratory tract, part unspecified in causing asphyxiation, initial encounter; J40 Bronchitis, not specified as acute or chronic; B96.5 Pseudomonas (aeruginosa) (mallei) (pseudomallei) as the cause of diseases classified elsewhere; Z93.1 Gastrostomy status; Z82.49 Family history of ischemic heart disease and other diseases of the circulatory system; Z86.73 Personal history of transient ischemic attack (TIA), and cerebral infarction without residual deficits
CPT/HCPCS: 36415-UA; 36600-90; 71010-TC; 71101-TC-RT; 71250-TC; 80053-TC; 80170-TC; 80202-TC; 81001-TC; 82150-TC; 82550-TC; 82553; 82803-TC; 82948-90; 83605; 83690-TC; 83880-TC; 84443-TC; 84484-TC; 85007-TC; 85025-TC; 85027-TC; 85610-TC; 85730-TC; 87070; 87086-90; 93005; 94002; 94003; 94640; 94760; J1580; J1650; J1815; J2270; J2543; J3370; J7030; J7040; Z7610

== ENCOUNTER 2016-11-07 11:29 | Inpatient (IN) | payer MEDICARE, MEDICAID ==
--- NOTE | 2016-11-07 11:52 | ED Physician Chart ---
Chief Complaint/HPI - Patient Information Date Seen:: 11/07/16 Time Seen:: 11:30 Chief Complaint:: abnormal laboratory tests History of Present Illness:: report of abnormal laboratory tests this morning; pt is ventilator-dependent; no report of C/P, dyspnea, abd. pain, fever, chills Allergies:: Allergies Allergy/AdvReac Type Severity Reaction Status Date / Time No Known Allergies Allergy Verified 10/26/16 06:09 Historian:: EMS, Medical Records Review:: Nurse's Note Reviewed, Old Chart Reviewed Review of Systems - Review of Systems General/Constitutional: Fever, Chills, No weight loss, No weakness, No diaphoresis, No edema, No loss of appetite Skin: No skin lesions, No rash, No bruising Head: Headache, No light-headedness Eyes: No loss of vision, No pain, No diplopia ENT: No earache, No nasal drainage, No sore throat, No tinnitus Neck: No neck pain, No swelling, No thyromegaly, No stiffness, No mass noted Cardio Vascular: Chest pain, Palpitations, No PND, No orthopnea, No edema Pulmonary: SOB, Cough, No sputum, No wheezing GI: Nausea, Vomiting, Diarrhea, No pain, No melena, No hematochezia, No constipation, No hematemesis G/U: No dysuria, No frequency, No hematuria Musculoskeletal: No bone or joint pain, No back pain, No muscle pain Endocrine: No polyuria, No polydipsia Psychiatric: No prior psych history, No depression, No anxiety, No suicidal ideation Hematopoietic: No bruising, No lymphadenopathy Allergic/Immuno: No urticaria, No angioedema Neurological: No syncope, No focal symptoms, No weakness, No paresthesia, No headache, No seizure, No dizziness, No confusion, No vertigo Past Medical History - Past Medical History Past Medical History: HTN, CAD, Asthma/COPD, CVA/TIA, Dyslipidemia, PUD/GERD, Other (Respiratory Failure) Family History: Heart disease, HTN Social History: Non Smoker, No Alcohol, No Drug Use, Care Facility Surgical History: PEG/GTube, other (Tracheostomy) Psychiatricy History: None Medication: Reviewed Family Medical History - Family Member Mother History Unknown: Yes Living Status: Hx Family Cancer: No Hx Family Coronary Artery Disease: Yes (MOTHER) Hx Family Congestive Heart Failure: No Hx Family Hypertension: No Hx Family Stroke: No Hx Family Diabetes: No Hx Family Seizures: No Hx Family Dementia: No Hx Family AIDS: No Hx Family HIV: No Hx Family COPD: No Hx Family Hepatitis: No Hx Family Psychiatric Problems: No Hx Family Tuberculosis: No Physical Exam - Physical Examination General/Constitutional: Awake, Well-developed, well-nourished, Alert, No distress, GCS 15, Non-toxic appearing, Ambulatory Head: Atraumatic Eyes: Lids, conjuctiva normal, PERRL, EOMI Skin: Nl inspection, No rash, No skin lesions, No ecchymosis, Well hydrated, No lymphadenopathy ENMT: External ears, nose nl, Nasal exam nl, Lips, teeth, gums nl Neck: Nontender, Full ROM w/o pain, No JVD, No nuchal rigidity, No bruit, No mass, No stridor Respiratory: Nl effort/Exclusion, Clear to Auscultation, No Wheeze/Rhonchi/Rales Cardio Vascular: No murmur, gallop, rubs, NL S1 S2, Carotid/Femoral/Distal pulses equal bilaterally Other Cardio Vascular comments:: Irregular Irregular Rhythm GI: No tenderness/rebounding/guarding, No organomegaly, No hernia, Normal BS's, No mass/bruits, No McBurney tenderness Other GI comments:: Abd.: Firm with distention : No CVA tenderness Extremities: No tenderness or effusion, Full ROM, normal strength in all extremities, No edema, Normal digits & nails Neuro/Psych: Alert/oriented, DTR's symmetric, Normal sensory exam, Normal motor strength, Judgement/insight normal, Mood normal, Normal gait, No focal deficits Misc: normal gait, Normal back, No paraspinal tenderness ED Septic Shock - . Is Septic Shock (SBP<90, OR Lactate>4 mmol\L) present?: No Reassessment (Disposition) - Reassessment Reassessment Condition:: Improved - Diagnosis Diagnosis:: Atrial Fibrillation; Anemia; Hyperkalemia; Respiratory Failure - Aftercare/Follow up Instructions Aftercare/Follow-Up Instructions:: Counseled pt regarding lab results/diagnosis & need follow up, Counseled pt & family regarding lab results/diagnosis & need follow up - Patient Disposition Discharge/Transfer:: Acute Care w/in this hosp Time Called:: 1300 Time Responded:: 13:15 Admitted to:: ICU Spoke to:: Dr. Causey Condition at Disposition:: Stable, Improved
[2016-11-07 12:20] LABS: % BASOPHILS 0.5 % (0.0-2.0); % EOSINOPHILS 1.3 % (0.0-5.0); % LYMPHOCYTES 5.1 % (20.0-50.0); % MONOCYTES 6.8 % (2.0-10.0); % NEUTROPHILS 86.3 % (40.0-80.0); MEAN CELL VOLUME 93.6 fl (81-100); MEAN CORPUSCULAR HEMOGLOBIN 31.9 pg (27.0-31.0); MEAN PLATELET VOLUME 6.5 fl; NEUTROPHILE ABSOLUTE 6.9 Th/cmm (1.8-8.0); PLATELET COUNT 161 Th/cmm (150-400); RED CELL DISTRIBUTION WIDTH 16.7 % (11.5-20.0)
[2016-11-07 12:28] LABS: HEMATOCRIT 22.4 % (35.0-45.0); HEMOGLOBIN 7.6 gm/dL (11.7-16.1); WHITE BLOOD COUNT 7.9 Th/cmm (4.8-10.8)
[2016-11-07 12:32] LABS: PROTHROMBIN TIME (TEST) 10.4 SECONDS (9.5-11.5)
[2016-11-07 12:36] LABS: ANION GAP 8.3 (7.0-16.0); BUN - UREA NITROGEN 35 mg/dL (7-25); BUN/CREATININE RATIO 23.3; CALCIUM SERUM 8.7 mg/dL (8.6-10.3); CARBON DIOXIDE 24.9 mEq/L (21.0-31.0); CHLORIDE 99 mEq/L (98-107); CHOLESTEROL 99 mg/dL (<200); CREATININE - SERUM 1.5 mg/dL (0.6-1.2); GLUCOSE 92 mg/dL (70-105); POTASSIUM SERUM 5.2 mEq/L (3.5-5.1); SODIUM SERUM 127 mEq/L (136-145); TRIGLYCERIDES 61 mg/dL (<150)
[2016-11-07 12:39] LABS: TROP I 0.02 ng/mL (0.01-0.05)
--- NOTE | 2016-11-07 13:04 | Diagnostic Imaging Report ---
CHEST X-RAY: AP view INDICATION: pain COMPARISON: Chest x-ray 10/29/2016 FINDINGS: Tracheostomy tube and left PICC line are stable. There is improved lung aeration. Right mid lung linear densities are noted. A small left effusion is noted. Improving left lung infiltrates are noted. Cardiomegaly is noted with atherosclerosis. IMPRESSION: Improving lung aeration with decrease in left pleural effusion and improvement in left lung infiltrates. Right midlung linear density likely due to subsegmental atelectasis. Cardiomegaly and atherosclerotic vascular disease.
--- NOTE | 2016-11-07 13:06 | Diagnostic Imaging Report ---
Abdominal series including left lateral decubitus views Comparison: None History: Abdominal distention Findings: A percutaneous gastric feeding tube is noted. Generalized gas-filled loops of primarily large bowel are noted. There is paucity of gas in the distal colon. There may be a Carrillo catheter in place. Spinal scoliosis is noted with degenerative changes. No evidence of gross free abdominal air. IMPRESSION: Generalized gaseous distended loops of bowel, nonspecific, and may represent a colonic ileus. There is paucity of gas in the distal colon. Percutaneous feeding tube noted. Probable Carrillo catheter also noted. Please correlate clinically.
[2016-11-07] MEDS ORDERED: Sodium Chloride 0.9% 1,000 ML IV ONE (13:11)
[2016-11-07] MEDS: Ferrous Sulfate 300 MG/5 ML UDC GT SCH (18:10)
[2016-11-07] MEDS: Albuterol/Ipratropium Neb 3 ML AERS HHN SCH ×2 (19:39→23:34)
[2016-11-07] MEDS: Budesonide 0.5 Mg/2 mL Ud HHN SCH (19:39)
--- NOTE | 2016-11-07 21:35 | Admit Criteria Form ---
Admit Criteria Forms - Admit Criteria Diagnosis: RESPIRATORY FAILURE [facility] Clinical Indications for Admission to Inpatient Care (Place 'X' for any and all applicable criteria): Hospital admission is needed for appropriate care of the patient because of acute respiratory failure or insufficiency as indicated by ANY ONE of the following(1)(2)(3)(4)(5)(6)(7)(8): [X]I. Mechanical ventilation needed (acute invasive or noninvasive) [ ]II. Severe ventilation deficit as indicated by ANY ONE of the following (9) [ ]a) Respiratory acidosis (pH less than 7.32 and partial pressure of carbon dioxide greater than 40 mm Hg (5.3 kPa)) [ ]b) Partial pressure of carbon dioxide greater than 44 mm Hg (5.9 kPa ) (new) [ ]c) Airflow measurements less than 25% of predicted (eg, peak expiratory flow rate less than 100 L/minute) [ ]d) Forced vital capacity less than 15 mL/kg of ideal body weight, or 50% decrease in vital capacity from baseline [ ]III. Noncardiac pulmonary edema not resolving with rapid emergency treatment (8) [ ]IV. Severe respiratory distress as indicated by ANY ONE of the following: [ ]a) Severe tachypnea (respiratory rate greater than 30, greater than 45 for 6-month-old, greater than 60 for ) [ ]b) Severe hypoxemia (partial pressure of oxygen less than 50 mm Hg ( 6.7 kPa) on greater than 50% oxygen or partial pressure of oxygen to FIO2 ratio less than 200) [ ]c) Mental status deterioration from respiratory disease [ ]V. Airway obstruction or inadequate protection [A](10)(11) The original [employer] content created by [employer] has been revised. The portions of the content which have been revised are identified through the use of italic text or in bold, and [employer] has neither reviewed nor approved the modified material. All other unmodified content is copyright [employer]. Please see references footnoted in the original [employer] edition 2016 Admit Criteria Met?: Yes
[2016-11-08] MEDS ORDERED: Sodium Chloride 0.9% 1,000 ML IV SCH (00:23)
[2016-11-08] MEDS: Albuterol/Ipratropium Neb 3 ML AERS HHN SCH ×6 (03:02→22:42)
[2016-11-08 05:36] LABS: MEAN CELL VOLUME 97.7 fl (81-100); MEAN CORPUSCULAR HEMOGLOBIN 33.5 pg (27.0-31.0); MEAN CORPUSCULAR HGB CONC 34.3 pg (28.0-36.0); MEAN PLATELET VOLUME 7.1 fl; PLATELET COUNT 147 Th/cmm (150-400); RED BLOOD COUNT 2.22 Mil/cmm (3.80-5.20); RED CELL DISTRIBUTION WIDTH 16.8 % (11.5-20.0); WHITE BLOOD COUNT 5.9 Th/cmm (4.8-10.8)
[2016-11-08 05:48] LABS: HEMOGLOBIN 7.4 gm/dL (11.7-16.1)
[2016-11-08 05:49] LABS: HEMATOCRIT 21.7 % (35.0-45.0)
[2016-11-08 05:52] LABS: ALB/GLOB RATIO 0.9 (1.0-1.8); ALKALINE PHOSPHATASE 69 U/L (34-104); ANION GAP 10.3 (7.0-16.0); BILIRUBIN,TOTAL 0.6 mg/dL (0.3-1.0); BUN - UREA NITROGEN 28 mg/dL (7-25); CALCIUM SERUM 8.5 mg/dL (8.6-10.3); CARBON DIOXIDE 24.1 mEq/L (21.0-31.0); CHLORIDE 103 mEq/L (98-107); CREATININE - SERUM 1.4 mg/dL (0.6-1.2); GLUCOSE 82 mg/dL (70-105); POTASSIUM SERUM 3.4 mEq/L (3.5-5.1); SGOT 28 U/L (13-39); SGPT/ALT 18 U/L (7-52); SODIUM SERUM 134 mEq/L (136-145)
[2016-11-08] MEDS: Budesonide 0.5 Mg/2 mL Ud HHN SCH ×2 (06:49→19:13)
[2016-11-08 06:54] LABS: BAND NEUTROPHILE 1 % (0-10); EOSINOPHIL 3 % (0-5); NEUTROPHILS 88 % (40-80); TOTAL CELLS COUNTED 100
[2016-11-08 06:55] LABS: PLATELET ESTIMATE ADEQUATE (NORMAL)
[2016-11-08] MEDS ORDERED: Pantoprazole 40 mg/Packet GT SCH (09:00)
[2016-11-08] MEDS: Ferrous Sulfate 300 MG/5 ML UDC GT SCH ×2 (09:04→16:53)
[2016-11-08] MEDS: D5-0.9%NS 1,000 ML IV SCH ×2 (10:00→20:21)
[2016-11-08] MEDS: cefTRIAXone 1 GM in Sodium Chloride 0.9% 50 ML IV SCH (10:30)
--- NOTE | 2016-11-08 10:52 | History & Physical Pre-OP ---
DATE OF SERVICE: 11/08/2016 CHIEF COMPLAINT: Dehydration, abnormal labs, and abdominal pain/distention. HISTORY OF PRESENT ILLNESS: This is an 86-year-old [place] lady with multiple medical problems who was admitted to this facility roughly about a month ago for pneumonia and UTI and was in her usual state of health until a couple days ago when she was noted to have abdominal distention and pain. Labs were done with pertinent findings included an H and H of 7/23 and a creatinine of 6.1. The patient was transferred to the ER where a KUB showed generalized gaseous distended loops of bowel which may be representing colonic ileus. PEG tube was noted, and on her lab work, she was noted to have an anemia as noted above and BUN and creatinine of 28/1.4. She has been admitted to ICU for further management and care. The patient has a history of chronic respiratory failure, on vent status post trach and PEG tube, history of atrial fibrillation, hypertension, CAD, and as noted above, she was recently admitted for pneumonia and UTI. PAST MEDICAL HISTORY: As noted above. History of cerebrovascular accident/transient ischemic attack. PAST SURGICAL HISTORY: As noted above including trach and PEG. FAMILY HISTORY: Likely noncontributory to this submission. SOCIAL HISTORY: No tobacco, no ETOH. Lives at [facility], Subacute Unit. OUTPATIENT MEDICATIONS: Mucomyst 20% 2 mL b.i.d., vitamin C 500 mg every day, Flexeril 5 mg every day, Lactinex 2 tabs t.i.d., MiraLax 17 g b.i.d., tramadol 50 mg q.8 hours p.r.n. for pain, Tylenol suspension 650 mg q.6 hours p.r.n., DuoNeb mg 4 p.r.n., amiodarone 200 mg every day, amlodipine 5 mg every day, Pulmicort 0.5 b.i.d., iron sulfate 300 mg b.i.d., Lasix 10 mg every day, Zofran 4 mg q.6h. p.r.n. for nausea and vomiting, and Protonix 40 mg every day. REVIEW OF SYSTEMS: Not able to be done given the patient's condition. PHYSICAL EXAMINATION: VITAL SIGNS: T-max is 99.2, declined is 98.8, pulse 96, blood pressure 123/69, and respirations 16. She is satting 97%-99% on 35% FiO2. GENERAL: She is a well-developed, well-nourished female, currently lying in bed on a vent. Sometime, she is grimacing in pain. CARDIAC: Trach looks clean, dry, and intact. It is in midline. There is no JVD or LAD. CARDIOVASCULAR: Regular rate with no murmurs. LUNGS: Decreased, but clear to auscultation bilaterally. ABDOMEN: Soft and supple, but tenderness to palpation on the epigastrium and diffusely. There is hypoactive bowel sounds. PEG tube is in place. EXTREMITIES: There is no edema in lower extremities. NEUROLOGIC: Difficult to assess, but appears to be grossly intact. LABORATORY DATA: White count 5.9 and H and H 7/, platelet count 147,000. Sodium 134, potassium 3.4, chloride 103, CO2 of 24, BUN 28, and creatinine 1.4, TSH is 0.64. DIAGNOSTICS: Abdominal x-ray. Please referred to the HPI. Chest x-ray shows improving lung aeration and decreased left pleural effusions and improvement of left lung infiltrates. Her right mid lung linear density likely due to subsegmental atelectasis and has also cardiomegaly and atherosclerotic vascular disease. EKG shows consistency with atrial fibrillation at a rate of 96. IMPRESSION: 1. Abdominal pain, rule out small bowel obstruction, abdominal pain/distention, rule out abdominal obstruction/ileus given current x-ray findings. 2. Dehydration/azotemia. 3. Severe anemia, rule out gastrointestinal bleed. 4. History of atrial fibrillation. Currently, rate controlled. 5. History of respiratory failure, trach dependent. 6. History of coronary artery disease. 7. History of cerebrovascular accident/transient ischemic attack. 8. History of dyslipidemia. 9. History of trach and PEG. PLAN: The patient has been admitted to the ICU as noted above and has been placed on IV fluids, D5 half NS at 100 mL per hour. She will also be placed on Protonix PPI and will be kept on her medications as scheduled for the time being. I will place her on empiric IV antibiotics and 2 units of PRBC transfusion also has been asked for. She will undergo an anemia workup including iron studies, and GI as well as pulmonary critical care consult will be asked for. Empiric IV antibiotics will be started. Daily labs will be done. MIKE: 11/08/2016 09:53 JOB# [id number]
[2016-11-08 11:43] LABS: ALKALINE PHOSPHATASE 67 U/L (34-104); ANION GAP 12.8 (7.0-16.0); BILIRUBIN,TOTAL 0.7 mg/dL (0.3-1.0); BUN - UREA NITROGEN 26 mg/dL (7-25); CALCIUM SERUM 8.7 mg/dL (8.6-10.3); CARBON DIOXIDE 22.4 mEq/L (21.0-31.0); CHLORIDE 102 mEq/L (98-107); CREATININE - SERUM 1.3 mg/dL (0.6-1.2); GLUCOSE 98 mg/dL (70-105); POTASSIUM SERUM 3.2 mEq/L (3.5-5.1); SGOT 26 U/L (13-39); SGPT/ALT 19 U/L (7-52); SODIUM SERUM 134 mEq/L (136-145)
[2016-11-08] MEDS: metroNIDAZOLE 500mg/NS 100mL 500 MG/100 ML BAG IV SCH ×2 (13:00→20:26)
--- NOTE | 2016-11-08 13:05 | General Progress Note ---
Subjective - Review of Systems Service Date: 11/08/16 Events since last encounter: consult dictated UGI series ordered Objective - Results Result Diagrams: 11/08/16 04:57 11/08/16 10:30 Recent Labs: Laboratory Last Values WBC 5.9 Th/cmm (4.8-10.8) D 11/08/16 04:57 RBC 2.22 Mil/cmm (3.80-5.20) L 11/08/16 04:57 Hgb 7.4 gm/dL (11.7-16.1) L* 11/08/16 04:57 Hct 21.7 % (35.0-45.0) L* 11/08/16 04:57 MCV 97.7 fl (81-100) 11/08/16 04:57 MCH 33.5 pg (27.0-31.0) H 11/08/16 04:57 MCHC Differential 34.3 pg (28.0-36.0) 11/08/16 04:57 RDW 16.8 % (11.5-20.0) 11/08/16 04:57 Plt Count 147 Th/cmm (150-400) L 11/08/16 04:57 MPV 7.1 fl 11/08/16 04:57 Neutrophils % 86.3 % (40.0-80.0) H 11/07/16 12:12 Band Neutrophils % 1 % (0-10) 11/08/16 04:57 Lymphocytes % 5.1 % (20.0-50.0) L 11/07/16 12:12 Monocytes % 6.8 % (2.0-10.0) 11/07/16 12:12 Eosinophils % 1.3 % (0.0-5.0) 11/07/16 12:12 Basophils % 0.5 % (0.0-2.0) 11/07/16 12:12 Neutrophils (Manual) 88 % (40-80) H 11/08/16 04:57 Lymphocytes 2 % (20-50) L 11/08/16 04:57 Monocytes 6 % (2-10) 11/08/16 04:57 Eosinophils 3 % (0-5) 11/08/16 04:57 Platelet Estimate ADEQUATE (NORMAL) 11/08/16 04:57 PT 10.4 SECONDS (9.5-11.5) 11/07/16 12:12 INR 1.00 (0.5-1.4) 11/07/16 12:12 Sodium 134 mEq/L (136-145) L 11/08/16 10:30 Potassium 3.2 mEq/L (3.5-5.1) L 11/08/16 10:30 Chloride 102 mEq/L (98-107) 11/08/16 10:30 Carbon Dioxide 22.4 mEq/L (21.0-31.0) 11/08/16 10:30 Anion Gap 12.8 (7.0-16.0) 11/08/16 10:30 BUN 26 mg/dL (7-25) H 11/08/16 10:30 Creatinine 1.3 mg/dL (0.6-1.2) H 11/08/16 10:30 Est GFR ( Amer) TNP 11/08/16 10:30 Est GFR (Non-Af Amer) TNP 11/08/16 10:30 BUN/Creatinine Ratio 20.0 11/08/16 10:30 Glucose 98 mg/dL (70-105) 11/08/16 10:30 Whole Bld Lactic Acid 0.85 mmol/L (0.60-1.99) 11/08/16 10:30 Calcium 8.7 mg/dL (8.6-10.3) 11/08/16 10:30 Total Bilirubin 0.7 mg/dL (0.3-1.0) 11/08/16 10:30 AST 26 U/L (13-39) 11/08/16 10:30 ALT 19 U/L (7-52) 11/08/16 10:30 Alkaline Phosphatase 67 U/L (34-104) 11/08/16 10:30 Creatine Kinase 77 U/L (30-223) 11/07/16 12:12 Troponin I 0.02 ng/mL (0.01-0.05) 11/07/16 12:12 B-Natriuretic Peptide 384.0 pg/mL (5.0-100.0) H 11/07/16 12:12 Total Protein 6.7 gm/dL (6.0-8.3) 11/08/16 10:30 Albumin 3.3 gm/dL (3.7-5.3) L 11/08/16 10:30 Globulin 3.4 gm/dL 11/08/16 10:30 Albumin/Globulin Ratio 1.0 (1.0-1.8) 11/08/16 10:30 Triglycerides 61 mg/dL (<150) 11/07/16 12:12 Cholesterol 99 mg/dL (<200) 11/07/16 12:12 LDL Cholesterol Direct 27 mg/dL (75-193) L 11/07/16 12:12 HDL Cholesterol 68 mg/dL (23-92) 11/07/16 12:12 Lipase 12 U/L (11-82) 11/08/16 10:30 TSH 0.64 uIU/ml (0.34-5.60) 11/08/16 04:57 Blood Type AB POSITIVE 11/08/16 04:57 Antibody Screen NEGATIVE 11/08/16 04:57 Crossmatch See Detail 11/08/16 04:57 - Physical Exam Vitals and I&O: Vital Signs Temp 98.8 F 11/08/16 04:00 Pulse 85 11/08/16 10:56 Resp 16 11/08/16 05:55 BP 123/69 11/08/16 09:04 Pulse Ox 91 11/08/16 10:56 Intake & Output 11/07/16 11/08/16 11/08/16 18:59 06:59 18:59 Intake Total 50 Output Total 1999 -1999 50 Intake: Intake, IV Amount 50 cefTRIAXone 1 gm In 50 Sodium Chloride 0.9% 50 ml @ 100 mls/hr IV Q24HR [facility] Rx#:[id number] Output: Urine 1999 Other: # Bowel Movements 2 Stool Characteristics Liquid Brown Active Medications: Current Medications Acetaminophen (Tylenol 650mg/20.3ml Suspension) 650 mg GT Q6HR PRN PRN Reason: Pain or Fever >101 Stop: 01/06/17 15:15 Albuterol/Ipratropium (Duoneb Neb) 3 ml HHN Q4HRT [facility] Stop: 01/06/17 18:59 Last Admin: 11/08/16 10:59 Dose: 3 ml Amiodarone HCl (Cordarone) 200 mg GT DAILY [facility] Stop: 01/07/17 08:59 Last Admin: 11/08/16 09:04 Dose: 200 mg Amlodipine Besylate (Norvasc) 5 mg GT DAILY [facility] Stop: 01/07/17 08:59 Last Admin: 11/08/16 09:04 Dose: 5 mg Budesonide (Pulmicort) 0.5 mg HHN BIDRT [facility] Stop: 01/06/17 18:59 Last Admin: 11/08/16 06:49 Dose: 0.5 mg Ferrous Sulfate (Iron) 330 mg GT BID [facility] Stop: 01/06/17 16:59 Last Admin: 11/08/16 09:04 Dose: 330 mg Dextrose/Sodium Chloride (D5-0.9%Ns) 1,000 mls @ 100 mls/hr IV .Q10H [facility] Stop: 01/07/17 09:41 Last Admin: 11/08/16 10:00 Dose: 100 mls/hr Ceftriaxone Sodium 1 gm/ (Sodium Chloride) 50 mls @ 100 mls/hr IV Q24HR [facility] Stop: 01/07/17 09:59 Last Infusion: 11/08/16 11:00 Dose: Infused Metronidazole (Flagyl) 500 mg in 100 mls @ 100 mls/hr IV Q8HR [facility] Stop: 01/07/17 12:59 Morphine Sulfate (Morphine) 1 mg IVP Q4HR PRN PRN Reason: Abdominal Pain Stop: 01/07/17 09:55 Ondansetron HCl (Zofran Odt) 4 mg PO Q6H PRN PRN Reason: Nausea / Vomiting Pantoprazole Sodium (Protonix) 40 mg IVP DAILY [facility] Stop: 01/07/17 09:59 - Procedures Procedures: Procedures Procedure Code Date CHANGE TRACHEOSTOMY DEVICE IN TRACHEA, EXTERNAL APPROACH [id number] 09/29/16 INSERTION OF FEEDING DEVICE INTO STOMACH, ENDO [id number] 09/29/16 REMOVAL OF FEEDING DEVICE FROM STOMACH, EXTERNAL APPROACH [id number] 09/29/16 RESPIRATORY VENTILATION, GREATER THAN 96 CONSECUTIVE HOURS [id number] 10/26/16 TRANSFUSE NONAUT RED BLOOD CELLS IN PERIPH VEIN, PERC [id number] 09/29/16 VENT MGMT INPAT INIT DAY 10/26/16 VENT MGMT INPAT SUBQ DAY 10/26/16 Assessment/Plan - Problem List Patient Problems: All Active Problems ELEVATED K, LOW HB (ABNORMAL LAB RESULTS (Acute)
[2016-11-08] MEDS ORDERED: Morphine Sulfate 2 mg/mL 1mL Syr IVP PRN (13:14)
[2016-11-08] MEDS: Morphine Sulfate 2 mg/mL 1mL Syr IVP PRN ×2 (13:15→19:45)
[2016-11-08] MEDS ORDERED: Diatrizoate Meglumine/Diatri 30 mL Sol PO ONE (14:19)
[2016-11-08 18:12] LABS: URINE BILIRUBIN NEGATIVE (NEGATIVE); URINE BLOOD SMALL (NEGATIVE); URINE COLOR STRAW; URINE GLUCOSE (UA) NEGATIVE (NEGATIVE); URINE KETONE NEGATIVE (NEGATIVE); URINE PROTEIN NEGATIVE (NEGATIVE); URINE UROBILINOGEN 0.2 E.U./dL (0.2 - 1.0)
[2016-11-08 18:13] LABS: URINE BACTERIA NONE SEEN /hpf (NONE SEEN); URINE EPITHELIAL CELLS NONE SEEN /lpf (FEW)
--- NOTE | 2016-11-08 18:25 | Consultation ---
DATE OF CONSULTATION: 11/08/2016 REFERRING PHYSICIAN: Dr. Causey. REASON FOR CONSULTATION: Abdominal pain and distention. Thank you for referring this patient to me. HISTORY OF PRESENT ILLNESS: This is an 86-year-old female with multiple medical problems, admitted because of abdominal pain and distention. She had been at this facility previously. She has chronic respiratory failure and is ventilator via tracheostomy. She has history of CVA and TIA. This is a PEG tube in place for feeding. LABORATORY STUDIES: Showed WBC is normal, hemoglobin is 7.6 grams and repeat is 7.4. Chemistry: Sodium is low, potassium is high at 5.2, BUN is 35 with creatinine 1.5. The BNP is slightly elevated to 384. Chest x-ray showed gaseous distention, mostly of the colon with minimal gas in the distal colon. Chest x-ray shows decreased left pleural effusion and decreased lung infiltrates in the left side. PHYSICAL EXAMINATION: GENERAL: The patient is on vent, is awake, but minimally responsive. ABDOMEN: There is a PEG tube in the upper abdomen. Abdomen is distended with decreased peristalsis. There is a midline lower abdominal incision. Procedure for this is unclear at this point. On pressure of the abdomen, the patient appears to wince indicating some degree of abdominal pain and tenderness. PLAN: We will order small bowel series to recheck on bowel obstruction. JOB# [id number]
[2016-11-09] MEDS: Albuterol/Ipratropium Neb 3 ML AERS HHN SCH ×6 (02:45→22:35)
[2016-11-09] MEDS: metroNIDAZOLE 500mg/NS 100mL 500 MG/100 ML BAG IV SCH ×3 (05:00→21:00)
[2016-11-09 05:06] LABS: MEAN CELL VOLUME 95.4 fl (81-100); MEAN CORPUSCULAR HEMOGLOBIN 33.2 pg (27.0-31.0); MEAN CORPUSCULAR HGB CONC 34.8 pg (28.0-36.0); MEAN PLATELET VOLUME 7.2 fl; PLATELET COUNT 139 Th/cmm (150-400); RED BLOOD COUNT 3.06 Mil/cmm (3.80-5.20); RED CELL DISTRIBUTION WIDTH 16.2 % (11.5-20.0); WHITE BLOOD COUNT 6.3 Th/cmm (4.8-10.8)
[2016-11-09 05:19] LABS: HEMATOCRIT 29.2 % (35.0-45.0); HEMOGLOBIN 10.2 gm/dL (11.7-16.1)
[2016-11-09 05:41] LABS: ALB/GLOB RATIO 0.9 (1.0-1.8); ALKALINE PHOSPHATASE 63 U/L (34-104); ANION GAP 6.8 (7.0-16.0); BUN - UREA NITROGEN 18 mg/dL (7-25); CALCIUM SERUM 8.6 mg/dL (8.6-10.3); CARBON DIOXIDE 25.6 mEq/L (21.0-31.0); CHLORIDE 104 mEq/L (98-107); CREATININE - SERUM 1.2 mg/dL (0.6-1.2); GLUCOSE 120 mg/dL (70-105); MAGNESIUM 2.1 mg/dL (1.9-2.7); SGOT 28 U/L (13-39); SGPT/ALT 20 U/L (7-52); SODIUM SERUM 134 mEq/L (136-145)
[2016-11-09 05:49] LABS: POTASSIUM SERUM 2.4 mEq/L (3.5-5.1)
[2016-11-09 05:57] LABS: BAND NEUTROPHILE 4 % (0-10); NEUTROPHILS 83 % (40-80); PLATELET ESTIMATE ADEQUATE (NORMAL); TOTAL CELLS COUNTED 100
[2016-11-09] MEDS: Budesonide 0.5 Mg/2 mL Ud HHN SCH ×2 (06:46→19:04)
--- NOTE | 2016-11-09 06:48 | Consultation ---
DATE OF CONSULTATION: 11/08/[address] Causey. Thank you very much, Dr. Causey, for this consultation. I will follow the patient with you. HISTORY OF PRESENT ILLNESS: She was known to me, 86-year-old female with history of chronic respiratory failure, ventilator dependent, dysphagia, presents with the anemia and admitted for further treatment and where the patient appears to be comfortable, in no distress, no shortness of breath who was recently admitted for pneumonia. PAST MEDICAL HISTORY: Weakness, dysphagia, chronic respiratory failure. SOCIAL HISTORY: No history of smoking or drinking. PHYSICAL EXAMINATION: GENERAL: Awake, alert, not in acute distress. VITAL SIGNS: Temperature 98.4, pulse 81, respiration is 22, blood pressure 131/61, saturation 99%. HEENT: Atraumatic, normocephalic. Pupils reactive to light and accommodation. Ears, nose and throat normal. NECK: Supple. No JVD. CHEST: There is rhonchi bilaterally, fair air entry. HEART: Regular rate and rhythm. ABDOMEN: Soft. EXTREMITIES: No edema. LABORATORY DATA: , hemoglobin 7.4, hematocrit 21.7, Sodium 134, potassium 3.2 , BUN is 26, creatinine 1.3. IMPRESSION: An 86-year-old female with, 1. Respiratory failure. 2. Anemia. 3. Recent pneumonia. 4. Weakness. 5. Dysphagia. PLAN: 1. IV antibiotics. 2. Nebulizer treatment. 3. A blood transfusion, consider GI evaluation, assessment of any GI bleed. Case discussed with the patient's family at bedside in detail. [facility]# [id number] [facility] CENT[facility]ustam
[2016-11-09 08:24] LABS: HEMATOCRIT 29.2 % (37.0-47.0); RBC RETICULOCYTE COUNT 3.06 Mil/cmm
[2016-11-09] MEDS: Morphine Sulfate 2 mg/mL 1mL Syr IVP PRN (08:55)
[2016-11-09] MEDS: Ferrous Sulfate 300 MG/5 ML UDC GT SCH ×2 (08:59→16:33)
[2016-11-09] MEDS: cefTRIAXone 1 GM in Sodium Chloride 0.9% 50 ML IV SCH (09:08)
[2016-11-09] MEDS ORDERED: D5-0.45NS w/10 mEq KCL 1,000 ML IV SCH (09:30)
--- NOTE | 2016-11-09 09:53 | Diagnostic Imaging Report ---
Small bowel follow-through study History: Pain rule out obstruction Comparison: Abdominal x-rays earlier the same day Findings: Steam Press Operator view demonstrates a nonspecific bowel gas pattern. Left basal lung opacity is noted. Contrast was administered through patient's percutaneous gastric feeding tube. There is small amount of gastroesophageal reflux. There is normal transit of contrast from the small bowel to the large bowel without evidence of small bowel obstruction. Evaluation for focal lesions is limited on this exam. IMPRESSION: No evidence of small bowel obstruction. Small amount of gastroesophageal reflux noted. Left basal lung opacity which may be due to atelectasis versus infiltrate.
[2016-11-09] MEDS: Fluconazole 100mg/50mL 100 MG/50 ML BOTTLE IV SCH (10:00)
[2016-11-09] MEDS: KCL 20mEq/100mL Premix 20 MEQ/100 ML PIGGYBACK IV SCH ×2 (10:08→12:10)
[2016-11-09 11:18] LABS: FERRITIN 249 ng/mL (15-150); IRON SATURATION 15 % (15-55); TIBC (LCI) 243 ug/dL (250-450); UIBC 207 ug/dL (118-369)
--- NOTE | 2016-11-09 14:37 | General Progress Note ---
Subjective - Review of Systems Service Date: 11/09/16 Events since last encounter: SBO series negative start GT feedings Objective - Results Result Diagrams: 11/09/16 04:32 11/09/16 04:32 Recent Labs: Laboratory Last Values WBC 6.3 Th/cmm (4.8-10.8) 11/09/16 04:32 RBC 3.06 Mil/cmm (3.80-5.20) L 11/09/16 04:32 Hgb 10.2 gm/dL (11.7-16.1) L D 11/09/16 04:32 Hct 29.2 % (37.0-47.0) L 11/09/16 04:32 MCV 95.4 fl (81-100) 11/09/16 04:32 MCH 33.2 pg (27.0-31.0) H 11/09/16 04:32 MCHC Differential 34.8 pg (28.0-36.0) 11/09/16 04:32 RDW 16.2 % (11.5-20.0) 11/09/16 04:32 Plt Count 139 Th/cmm (150-400) L 11/09/16 04:32 MPV 7.2 fl 11/09/16 04:32 Neutrophils % 86.3 % (40.0-80.0) H 11/07/16 12:12 Band Neutrophils % 4 % (0-10) 11/09/16 04:32 Lymphocytes % 5.1 % (20.0-50.0) L 11/07/16 12:12 Monocytes % 6.8 % (2.0-10.0) 11/07/16 12:12 Eosinophils % 1.3 % (0.0-5.0) 11/07/16 12:12 Basophils % 0.5 % (0.0-2.0) 11/07/16 12:12 Neutrophils (Manual) 83 % (40-80) H 11/09/16 04:32 Lymphocytes 8 % (20-50) L 11/09/16 04:32 Monocytes 5 % (2-10) 11/09/16 04:32 Eosinophils 3 % (0-5) 11/08/16 04:57 Platelet Estimate ADEQUATE (NORMAL) 11/09/16 04:32 Total Retics Counted 1.0 % (0.5-1.5) 11/09/16 04:32 Absolute Retic 30.6 Th/cmm 11/09/16 04:32 Corrected Retic Count 0.6 % (0.5-1.5) 11/09/16 04:32 PT 10.4 SECONDS (9.5-11.5) 11/07/16 12:12 INR 1.00 (0.5-1.4) 11/07/16 12:12 Sodium 134 mEq/L (136-145) L 11/09/16 04:32 Potassium 2.4 mEq/L (3.5-5.1) L* 11/09/16 04:32 Chloride 104 mEq/L (98-107) 11/09/16 04:32 Carbon Dioxide 25.6 mEq/L (21.0-31.0) 11/09/16 04:32 Anion Gap 6.8 (7.0-16.0) L 11/09/16 04:32 BUN 18 mg/dL (7-25) 11/09/16 04:32 Creatinine 1.2 mg/dL (0.6-1.2) 11/09/16 04:32 Est GFR ( Amer) TNP 11/09/16 04:32 Est GFR (Non-Af Amer) TNP 11/09/16 04:32 BUN/Creatinine Ratio 15.0 11/09/16 04:32 Glucose 120 mg/dL (70-105) H 11/09/16 04:32 Whole Bld Lactic Acid 0.85 mmol/L (0.60-1.99) 11/08/16 10:30 Calcium 8.6 mg/dL (8.6-10.3) 11/09/16 04:32 Magnesium 2.1 mg/dL (1.9-2.7) 11/09/16 04:32 Iron 36 ug/dL (27-139) 11/08/16 04:57 TIBC 243 ug/dL (250-450) L 11/08/16 04:57 Iron Saturation 15 % (15-55) 11/08/16 04:57 Unsaturated IBC 207 ug/dL (118-369) 11/08/16 04:57 Ferritin 249 ng/mL (15-150) H 11/08/16 04:57 Total Bilirubin 1.0 mg/dL (0.3-1.0) 11/09/16 04:32 AST 28 U/L (13-39) 11/09/16 04:32 ALT 20 U/L (7-52) 11/09/16 04:32 Alkaline Phosphatase 63 U/L (34-104) 11/09/16 04:32 Creatine Kinase 77 U/L (30-223) 11/07/16 12:12 Troponin I 0.02 ng/mL (0.01-0.05) 11/07/16 12:12 B-Natriuretic Peptide 601.0 pg/mL (5.0-100.0) H 11/09/16 04:32 Total Protein 7.1 gm/dL (6.0-8.3) 11/09/16 04:32 Albumin 3.3 gm/dL (3.7-5.3) L 11/09/16 04:32 Globulin 3.8 gm/dL 11/09/16 04:32 Albumin/Globulin Ratio 0.9 (1.0-1.8) L 11/09/16 04:32 Triglycerides 61 mg/dL (<150) 11/07/16 12:12 Cholesterol 99 mg/dL (<200) 11/07/16 12:12 LDL Cholesterol Direct 27 mg/dL (75-193) L 11/07/16 12:12 HDL Cholesterol 68 mg/dL (23-92) 11/07/16 12:12 Lipase 12 U/L (11-82) 11/08/16 10:30 TSH 0.64 uIU/ml (0.34-5.60) 11/08/16 04:57 Urine Source CATH 11/08/16 13:30 Urine Color STRAW 11/08/16 13:30 Urine Clarity HAZY (CLEAR) 11/08/16 13:30 Urine pH 7.0 11/08/16 13:30 Ur Specific [place] 1.05 (1.005-1.030) H 11/08/16 13:30 Urine Protein NEGATIVE mg/dL (NEGATIVE) 11/08/16 13:30 Urine Glucose (UA) NEGATIVE mg/dL (NEGATIVE) 11/08/16 13:30 Urine Ketones NEGATIVE mg/dL (NEGATIVE) 11/08/16 13:30 Urine Blood SMALL (NEGATIVE) H 11/08/16 13:30 Urine Nitrate NEGATIVE (NEGATIVE) 11/08/16 13:30 Urine Bilirubin NEGATIVE (NEGATIVE) 11/08/16 13:30 Urine Urobilinogen 0.2 E.U./dL (0.2 - 1.0) 11/08/16 13:30 Ur Leukocyte Esterase SMALL (NEGATIVE) H 11/08/16 13:30 Urine RBC 2-5 /hpf (0-5) 11/08/16 13:30 Urine WBC 6-10 /hpf (0-5) H 11/08/16 13:30 Ur Epithelial Cells NONE SEEN /lpf (FEW) 11/08/16 13:30 Urine Bacteria NONE SEEN /hpf (NONE SEEN) 11/08/16 13:30 Urine Yeast MODERATE /hpf (NONE SEEN) H 11/08/16 13:30 Blood Type AB POSITIVE 11/08/16 04:57 Antibody Screen NEGATIVE 11/08/16 04:57 Crossmatch See Detail 11/08/16 04:57 - Physical Exam Vitals and I&O: Vital Signs Temp 97.3 F 11/09/16 13:00 Pulse 80 11/09/16 14:29 Resp 15 11/09/16 13:00 BP 138/65 11/09/16 13:00 Pulse Ox 99 11/09/16 14:29 Intake & Output 11/08/16 11/09/16 11/09/16 18:59 06:59 18:59 Intake Total 150 2070 150 Output Total 3600 Balance 150 -1530 150 Intake: Intake, IV Amount 150 1200 150 D5-0.9%Ns 1,000 ml @ 100 1000 mls/hr IV .Q10H [facility] Rx#: [id number] Fluconazole 100mg/50mL 50 100 mg In 50 ml @ 50 mls/ hr IV Q24HR [facility] Rx#: [id number] KCL 20mEq/100mL Premix 20 100 meq In 100 ml @ 50 mls/ hr IV Q2H [facility] Rx#: [id number] cefTRIAXone 1 gm In 50 Sodium Chloride 0.9% 50 ml @ 100 mls/hr IV Q24HR [facility] Rx#:[id number] metroNIDAZOLE 500mg/NS 100 200 100mL 500 mg In 100 ml @ 100 mls/hr IV Q8HR [facility] Rx #:[id number] Oral 0 Blood Product 500 Other 370 Output: Urine 3500 Other 100 Other: # Bowel Movements 1 Stool Characteristics Soft Soft Soft Liquid Brown Brown Brown Green Green Active Medications: Current Medications Acetaminophen (Tylenol 650mg/20.3ml Suspension) 650 mg GT Q6HR PRN PRN Reason: Pain or Fever >101 Stop: 01/06/17 15:15 Albuterol/Ipratropium (Duoneb Neb) 3 ml HHN Q4HRT [facility] Stop: 01/06/17 18:59 Last Admin: 11/09/16 14:28 Dose: 3 ml Amiodarone HCl (Cordarone) 200 mg GT DAILY [facility] Stop: 01/07/17 08:59 Last Admin: 11/09/16 09:05 Dose: 200 mg Amlodipine Besylate (Norvasc) 5 mg GT DAILY [facility] Stop: 01/07/17 08:59 Last Admin: 11/09/16 09:02 Dose: 5 mg Budesonide (Pulmicort) 0.5 mg HHN BIDRT [facility] Stop: 01/06/17 18:59 Last Admin: 11/09/16 06:46 Dose: 0.5 mg Chlorhexidine Gluconate (Peridex) 15 ml MM 0800,1999 [facility] Stop: 01/08/17 19:59 Ferrous Sulfate (Iron) 330 mg GT BID [facility] Stop: 01/06/17 16:59 Last Admin: 11/09/16 08:59 Dose: 330 mg Ceftriaxone Sodium 1 gm/ (Sodium Chloride) 50 mls @ 100 mls/hr IV Q24HR [facility] Stop: 01/07/17 09:59 Last Admin: 11/09/16 09:08 Dose: 100 mls/hr Metronidazole (Flagyl) 500 mg in 100 mls @ 100 mls/hr IV Q8HR [facility] Stop: 01/07/17 12:59 Last Admin: 11/09/16 12:25 Dose: 100 mls/hr Potassium Chloride/Dextrose/Sod Cl (D5-0.45ns W/10 Meq Kcl) 1,000 mls @ 75 mls/ hr IV .[id number] [facility] Stop: 01/08/17 09:29 Last Admin: 11/09/16 10:00 Dose: 75 mls/hr Fluconazole (Diflucan) 100 mg in 50 mls @ 50 mls/hr IV Q24HR [facility] Stop: 01/08/17 09:29 Last Infusion: 11/09/16 11:00 Dose: Infused Mineral Oil (Mineral Oil 30 Ml) 30 ml GT BID [facility] Stop: 11/11/16 20:29 Last Admin: 11/09/16 08:59 Dose: 30 ml Morphine Sulfate (Morphine) 1 mg IVP Q4HR PRN PRN Reason: Abdominal Pain Stop: 01/07/17 09:55 Last Admin: 11/09/16 08:55 Dose: 1 mg Ondansetron HCl (Zofran Odt) 4 mg PO Q6H PRN PRN Reason: Nausea / Vomiting Pantoprazole Sodium (Protonix) 40 mg IVP DAILY [facility] Stop: 01/07/17 09:59 Last Admin: 11/09/16 08:58 Dose: 40 mg - Procedures Procedures: Procedures Procedure Code Date CHANGE TRACHEOSTOMY DEVICE IN TRACHEA, EXTERNAL APPROACH [id number] 09/29/16 INSERTION OF FEEDING DEVICE INTO STOMACH, ENDO [id number] 09/29/16 REMOVAL OF FEEDING DEVICE FROM STOMACH, EXTERNAL APPROACH [id number] 09/29/16 RESPIRATORY VENTILATION, 24-96 CONSECUTIVE HOURS [id number] 11/07/16 RESPIRATORY VENTILATION, GREATER THAN 96 CONSECUTIVE HOURS [id number] 10/26/16 TRANSFUSE NONAUT RED BLOOD CELLS IN PERIPH VEIN, PERC 30522I0 09/29/16 VENT MGMT INPAT INIT DAY 11/07/16 VENT MGMT INPAT SUBQ DAY 11/07/16 Assessment/Plan - Problem List Patient Problems: All Active Problems ELEVATED K, LOW HB (ABNORMAL LAB RESULTS (Acute) Nutritional Asmnt/Malnutr-PDOC - Dietary Evaluation Malnutrition Findings (Please click <Entered> for more info): Nutritional Asmnt/Malnutrition Start: 11/09/16 11: 08 Text: Status: Complete Freq: Document 11/09/16 11:08 GSUN (Rec: 11/09/16 11:24 GSUN [email or web address]) Nutritional Asmnt/Malnutrition Patient General Information Nutritional Screening Moderate Risk Screening Diagnosis Abdominal pain Pertinent Medical Hx/Surgical Hx Chronic respiratory failure, hx CVA/TIA, PEG, trach on vent , atrial fibrillation, HTN, CAD, recently admitted for pneumonia and UTI. Subjective Information 86 year old female from [facility]. : x ray showed no small bowel obstruction. Spoke to PEDRO Tellez, RN stated pt has not had BM for a period of time at [facility], was given bowel meds and had BM x4 yesterday 11/08, pt to be kept NPO now and most possibly resume tube feeding tomorrow 11/10. Bedscale CBW 150lb, pt avg weight previous 2 admissions to this hospital within this year aroudn 130- 140lb. RN stated pt has some fluid retention right now. No significant fat/muscle wasting noted. Current Diet Order/ Nutrition Support NPO Pertinent Medications Iron, Mineral Oil, Morphine, Zofran, Protonix, Potassium Chloride, D5 Pertinent Labs 11/09: glucose 120H, potassium 2.4L Nutritional Hx/Data Height 1.55 m Height (Calculated Centimeters) 154.9 Current Weight (lbs) 68.039 kg Weight (Calculated Kilograms) 68.0 Weight (Calculated Grams) 21292.9 Usual body Weight (lbs) 135 [place] Body Weight 105 Weight Status Overweight GI Symptoms Usual diet at home SNF: [facility] Skin Integrity/Comment: Simone 14. Pitting 1+ bilateral lower extremities. Skin intact. Estimated Nutritional Goals Calories/Kcals/Kg UBW 130lb/59.1kg Kcals Calculated 1478-1773kcal (25-30kcal/kg) Protein g/kg: UBW Protein Calculated 59-71g (1-1.2g/kg) Fluid: ml 1478-1773ml (1ml/kcal) Nutritional Problem 1. Problem Problem Altered GI function related to Etiology unknown, RN reported possibly fecal impaction aeb Signs/Symptoms: admitted with abdominal pain, on BM med, x ray indicated no SBO Intervention/Recommendation Comments 1. When medically appropriate to resume tube feeding, recommend [facility]ren Pulmonary at 50ml/hr x 20hrs, providing 1500kcal and 68g protein. Pt was on [facility] at SNF, equivalent to [facility] Pul[facility] . Expected Outcomes/Goals Expected Outcomes/Goals 1. Pt to meet 100% of estimated nutritional needs on tube feeding with tolerance.
[2016-11-09] MEDS: Chlorhexidine Gluconate 0.12% 15mL Mouthwash MM SCH (20:24)
--- NOTE | 2016-11-09 20:35 | Consultation ---
DATE OF CONSULTATION: 11/08/[address] Causey. HISTORY AND PHYSICAL: This is an 86 years old oriental female patient who has a known history of ventilator on tracheostomy, was brought into the hospital with abdominal distention, the patient was last admitted, at which time, the patient had pneumonia. The patient was evaluated and found to have abdominal ileus and respiratory failure with supraventricular tachycardia and atrial fibrillation and hence, Cardiology consult was requested. PAST MEDICAL HISTORY: Paroxysmal atrial fibrillation, chronic respiratory failure, on ventilator with tracheostomy, hypokalemia, iron deficiency anemia, CVA with late effect, dysphagia with PEG placement, protein-calorie malnutrition, hypertension, stable angina, left pleural effusion. FAMILY HISTORY: Unremarkable. SOCIAL HISTORY: The patient has no history of smoking, alcohol abuse. ALLERGIES: No known allergies. PHYSICAL EXAMINATION: VITAL SIGNS: Blood pressure 120/70, pulse 90 irregular, respirations 20, on ventilator. HEAD: Normocephalic. No lumps or bumps. EYES: Pupils equal, reactive to light. Fundi show AV nicking, sclerae white, conjunctivae pink. NECK: Carotid 2+. Normal upstroke. JVD flat. Thyroid not palpable. Lymph nodes not palpable. CHEST: Shows increased AP diameter. No kyphosis or scoliosis. LUNGS: Bilateral bronchovesicular breath sounds. Bilateral wheezing, rhonchi, prolonged expiration. HEART: PMI, fifth intercostal space with lateral to midclavicular line. S1 irregular. S2, S3, S4, systolic murmur, grade 2/6, lower left sternal border without radiation. ABDOMEN: Soft. The patient has a PEG in place. The patient's abdomen is distended with abdominal ileus. NEUROLOGIC: Difficult to evaluate. The patient has a CVA with late effect. EXTREMITIES: Peripheral pulses 1+, pedal edema 1+. CLINICAL IMPRESSION: Paroxysmal atrial fibrillation, abdominal ileus, hypokalemia, chronic respiratory failure, on ventilator, iron deficiency anemia, hemoglobin 7.4, need blood transfusion, cerebrovascular accident with late effect, dysphagia with PEG placement, protein-calorie malnutrition, hypertension, stable angina, left pleural effusion. PLAN: Admit the patient. We will continue present care and anticoagulate the patient, continue ____cold feeding until abdominal ileus is improved. Continue vent management, control the heart rate. JOB# [id number]
--- NOTE | 2016-11-09 21:25 | Consultation ---
DATE OF CONSULTATION: 11/08/2016 REASON FOR CONSULTATION: Abdominal distention and anemia. HISTORY OF PRESENT ILLNESS: This consult was obtained through the courtesy of Dr. Causey for this 86-year-old with multiple medical problems including dementia, CVA, respiratory failure, status post tracheostomy, dysphagia, status post G-tube, who was transferred from a intermediate for abdominal distention, found to be severely anemic. Initially, it was thought that the patient would have obstruction, so the patient had a small bowel follow through that came back negative. GI consult was called in for further evaluation. The patient is not able to provide any history. PAST MEDICAL HISTORY: Dementia, CVA, respiratory failure, dysphagia. PAST SURGICAL HISTORY: Had tracheostomy. She had the G-tube. SOCIAL HISTORY: Nonsmoker, nonalcoholic, IV drug abuser. FAMILY HISTORY: Noncontributory and unobtainable. ALLERGIES: No known drug allergies. MEDICATIONS: The patient is on Tylenol, albuterol, amiodarone, amlodipine, Pulmicort, Rocephin, iron, morphine, Zofran, Protonix. REVIEW OF SYSTEMS: Unobtainable. PHYSICAL EXAMINATION: GENERAL: The patient is awake, nonverbal, intubated. VITAL SIGNS: Blood pressure is 131/61, heart rate 81, respiratory rate 18, temperature is 98.4. HEENT: Head and neck examination, pupils reactive to light. Extraocular muscles could not be tested. Oral cavity, dry mucous membrane. NECK: There is a tracheostomy. CHEST: Good air entry. LUNGS: Showed bilateral rhonchi. CARDIOVASCULAR: Regular rate and rhythm. No murmur or gallop. ABDOMEN: Distended, but soft, positive bowel sound. There is a G-tube. EXTREMITIES: Lower extremities, no trace edema. CENTRAL NERVOUS SYSTEM: Unable to evaluate. LABORATORY DATA: Hemoglobin 7.4, hematocrit 21.7. RDW normal at 16.8. PT is normal at 10.4 seconds. BUN and creatinine are 26 and 1.3. Small bowel follow-through is negative. A plain x-ray was done earlier showed generalized gaseous distention of the colon . IMPRESSION AND PLAN: An 86-year-old with multiple medical problems, now with abdominal distention and with anemia. 1. Abdominal distention, most probably partial obstruction versus ileus, it seems to be getting better, no residuals in the stomach, small bowel follow-through is negative, so we will hold feeding for now, we will give the patient mineral oil around the clock and then we will see her in the morning; if minimal residuals, then we will start feeding. If not, consider a CAT scan. 2. Anemia. At this time, there is no evidence of gastrointestinal bleed, most probably it is multifactorial. We will check iron studies and continue to monitor and transfuse as needed. 3. Other medical problems such as hypertension, cerebrovascular accident, dementia, respiratory failure, etc. as per Dr. Causey and Dr. Ramsay. Thank you, Dr. Causey and Dr. Ramsay, for allowing me to participate in the care of the patient. If you have any further questions, please let me know. JOB# [id number] MTDRustam
[2016-11-10] MEDS: Albuterol/Ipratropium Neb 3 ML AERS HHN SCH ×6 (02:48→23:15)
[2016-11-10 04:57] LABS: HEMATOCRIT 31.8 % (35.0-45.0); MEAN CELL VOLUME 95.4 fl (81-100); MEAN CORPUSCULAR HEMOGLOBIN 32.9 pg (27.0-31.0); MEAN CORPUSCULAR HGB CONC 34.5 pg (28.0-36.0); MEAN PLATELET VOLUME 7.1 fl; PLATELET COUNT 151 Th/cmm (150-400); RED BLOOD COUNT 3.33 Mil/cmm (3.80-5.20); WHITE BLOOD COUNT 6.6 Th/cmm (4.8-10.8)
[2016-11-10] MEDS: metroNIDAZOLE 500mg/NS 100mL 500 MG/100 ML BAG IV SCH ×3 (05:00→21:00)
[2016-11-10 05:04] LABS: ANION GAP 7.3 (7.0-16.0); BUN - UREA NITROGEN 14 mg/dL (7-25); BUN/CREATININE RATIO 12.7; CALCIUM SERUM 8.8 mg/dL (8.6-10.3); CARBON DIOXIDE 25.6 mEq/L (21.0-31.0); CHLORIDE 106 mEq/L (98-107); CREATININE - SERUM 1.1 mg/dL (0.6-1.2); GLUCOSE 145 mg/dL (70-105); SODIUM SERUM 136 mEq/L (136-145)
[2016-11-10 05:25] LABS: BASOPHIL 1 % (0-3); NEUTROPHILS 83 % (40-80); PLATELET ESTIMATE ADEQUATE (NORMAL); TOTAL CELLS COUNTED 100
[2016-11-10 05:36] LABS: POTASSIUM SERUM 2.9 mEq/L (3.5-5.1)
[2016-11-10] MEDS: Budesonide 0.5 Mg/2 mL Ud HHN SCH ×2 (07:57→19:59)
[2016-11-10] MEDS: Chlorhexidine Gluconate 0.12% 15mL Mouthwash MM SCH ×2 (09:00→20:00)
--- NOTE | 2016-11-10 09:11 | Diagnostic Imaging Report ---
Portable chest x-ray HISTORY: Shortness of breath Compared to prior exam of November 07, 2016, the heart remains enlarged. Density remains in the left lower hemithorax consistent with a pleural effusion. Underlying infiltrate and/or atelectasis cannot be excluded. No other changes. A degree of congestive heart failure cannot be excluded. Clinical correlation is needed. IMPRESSION: 1. No change in the cardiopulmonary status
[2016-11-10] MEDS: Ferrous Sulfate 300 MG/5 ML UDC GT SCH (09:35)
[2016-11-10] MEDS: cefTRIAXone 1 GM in Sodium Chloride 0.9% 50 ML IV SCH (09:41)
[2016-11-10] MEDS: Fluconazole 100mg/50mL 100 MG/50 ML BOTTLE IV SCH (11:00)
[2016-11-10] MEDS ORDERED: Potassium Chloride Elixir 20 mEq /15 mL UDC GT ONE ×2 (11:00→17:30)
[2016-11-11] MEDS: Albuterol/Ipratropium Neb 3 ML AERS HHN SCH ×6 (03:02→22:31)
[2016-11-11 04:48] LABS: HEMATOCRIT 30.6 % (35.0-45.0); HEMOGLOBIN 10.4 gm/dL (11.7-16.1); MEAN CELL VOLUME 93.5 fl (81-100); MEAN CORPUSCULAR HEMOGLOBIN 31.9 pg (27.0-31.0); MEAN CORPUSCULAR HGB CONC 34.1 pg (28.0-36.0); MEAN PLATELET VOLUME 6.7 fl; PLATELET COUNT 158 Th/cmm (150-400); RED BLOOD COUNT 3.27 Mil/cmm (3.80-5.20); RED CELL DISTRIBUTION WIDTH 16.8 % (11.5-20.0); WHITE BLOOD COUNT 6.8 Th/cmm (4.8-10.8)
[2016-11-11 04:56] LABS: ANION GAP 7.4 (7.0-16.0); BUN - UREA NITROGEN 12 mg/dL (7-25); BUN/CREATININE RATIO 13.3; CALCIUM SERUM 8.8 mg/dL (8.6-10.3); CARBON DIOXIDE 24.9 mEq/L (21.0-31.0); CHLORIDE 107 mEq/L (98-107); CREATININE - SERUM 0.9 mg/dL (0.6-1.2); GLUCOSE 137 mg/dL (70-105); POTASSIUM SERUM 3.3 mEq/L (3.5-5.1); SODIUM SERUM 136 mEq/L (136-145)
[2016-11-11] MEDS: metroNIDAZOLE 500mg/NS 100mL 500 MG/100 ML BAG IV SCH ×3 (05:00→20:24)
[2016-11-11 05:09] LABS: EOSINOPHIL 6 % (0-5); NEUTROPHILS 84 % (40-80); PLATELET ESTIMATE ADEQUATE (NORMAL); TOTAL CELLS COUNTED 100
[2016-11-11 05:12] LABS: FOLIC ACID >20.0 ng/mL (>3.0); HAPTOGLOBIN 87 mg/dL (34-200)
[2016-11-11] MEDS: Budesonide 0.5 Mg/2 mL Ud HHN SCH ×2 (07:49→18:37)
[2016-11-11] MEDS: Chlorhexidine Gluconate 0.12% 15mL Mouthwash MM SCH ×2 (08:00→19:33)
[2016-11-11] MEDS: Ferrous Sulfate 300 MG/5 ML UDC GT SCH ×2 (09:00→16:21)
[2016-11-11] MEDS ORDERED: Probiotic Screen MC PRN (09:30)
[2016-11-11] MEDS: Fluconazole 100mg/50mL 100 MG/50 ML BOTTLE IV SCH (09:30)
[2016-11-11] MEDS: cefTRIAXone 1 GM in Sodium Chloride 0.9% 50 ML IV SCH (10:00)
[2016-11-11] MEDS ORDERED: Mag Sulfate 2gm/50mL Premix 2 GM/50 ML BAG IV ONE (11:52)
[2016-11-11] MEDS ORDERED: Potassium Chloride 20 mEq ER Tab PO ONE (11:52)
[2016-11-12] MEDS: Albuterol/Ipratropium Neb 3 ML AERS HHN SCH ×6 (02:39→22:40)
[2016-11-12] MEDS: metroNIDAZOLE 500mg/NS 100mL 500 MG/100 ML BAG IV SCH ×3 (04:40→20:32)
[2016-11-12 05:01] LABS: % BASOPHILS 0.2 % (0.0-2.0); % EOSINOPHILS 1.8 % (0.0-5.0); % LYMPHOCYTES 6.5 % (20.0-50.0); % MONOCYTES 7.7 % (2.0-10.0); % NEUTROPHILS 83.8 % (40.0-80.0); HEMOGLOBIN 10.2 gm/dL (11.7-16.1); MEAN CELL VOLUME 95.3 fl (81-100); MEAN CORPUSCULAR HEMOGLOBIN 32.5 pg (27.0-31.0); MEAN CORPUSCULAR HGB CONC 34.1 pg (28.0-36.0); MEAN PLATELET VOLUME 7.2 fl; NEUTROPHILE ABSOLUTE 5.2 Th/cmm (1.8-8.0); PLATELET COUNT 144 Th/cmm (150-400); RED BLOOD COUNT 3.15 Mil/cmm (3.80-5.20); RED CELL DISTRIBUTION WIDTH 16.5 % (11.5-20.0); WHITE BLOOD COUNT 6.2 Th/cmm (4.8-10.8)
[2016-11-12 05:28] LABS: ANION GAP 9.2 (7.0-16.0); BUN - UREA NITROGEN 16 mg/dL (7-25); BUN/CREATININE RATIO 17.8; CALCIUM SERUM 8.6 mg/dL (8.6-10.3); CARBON DIOXIDE 22.5 mEq/L (21.0-31.0); CHLORIDE 108 mEq/L (98-107); CREATININE - SERUM 0.9 mg/dL (0.6-1.2); GLUCOSE 137 mg/dL (70-105); POTASSIUM SERUM 3.7 mEq/L (3.5-5.1); SODIUM SERUM 136 mEq/L (136-145)
[2016-11-12] MEDS: Budesonide 0.5 Mg/2 mL Ud HHN SCH ×2 (07:52→18:41)
[2016-11-12] MEDS: Fluconazole 100mg/50mL 100 MG/50 ML BOTTLE IV SCH (08:50)
[2016-11-12] MEDS: Chlorhexidine Gluconate 0.12% 15mL Mouthwash MM SCH ×2 (08:54→19:42)
[2016-11-12] MEDS: Ferrous Sulfate 300 MG/5 ML UDC GT SCH ×2 (08:54→16:09)
[2016-11-12] MEDS: Lactobacillus Rhamnosus 10 Billion CFU Capsule GT SCH (08:57)
[2016-11-12] MEDS: cefTRIAXone 1 GM in Sodium Chloride 0.9% 50 ML IV SCH (09:01)
[2016-11-13] MEDS: D5-0.45NS w/10 mEq KCL 1,000 ML IV SCH ×3 (02:40→02:44)
[2016-11-13] MEDS: Albuterol/Ipratropium Neb 3 ML AERS HHN SCH ×3 (02:42→11:04)
[2016-11-13] MEDS: metroNIDAZOLE 500mg/NS 100mL 500 MG/100 ML BAG IV SCH ×2 (04:41→12:32)
[2016-11-13 06:15] LABS: % BASOPHILS 0.2 % (0.0-2.0); % EOSINOPHILS 2.5 % (0.0-5.0); % LYMPHOCYTES 8.7 % (20.0-50.0); % MONOCYTES 9.1 % (2.0-10.0); % NEUTROPHILS 79.5 % (40.0-80.0); HEMATOCRIT 29.3 % (35.0-45.0); HEMOGLOBIN 10.2 gm/dL (11.7-16.1); MEAN CELL VOLUME 93.4 fl (81-100); MEAN CORPUSCULAR HEMOGLOBIN 32.5 pg (27.0-31.0); MEAN CORPUSCULAR HGB CONC 34.8 pg (28.0-36.0); MEAN PLATELET VOLUME 7.4 fl; NEUTROPHILE ABSOLUTE 4.1 Th/cmm (1.8-8.0); PLATELET COUNT 144 Th/cmm (150-400); RED BLOOD COUNT 3.14 Mil/cmm (3.80-5.20); RED CELL DISTRIBUTION WIDTH 17.1 % (11.5-20.0); WHITE BLOOD COUNT 5.2 Th/cmm (4.8-10.8)
[2016-11-13 06:39] LABS: ANION GAP 6.2 (7.0-16.0); BUN - UREA NITROGEN 16 mg/dL (7-25); CALCIUM SERUM 8.8 mg/dL (8.6-10.3); CARBON DIOXIDE 24.2 mEq/L (21.0-31.0); CHLORIDE 109 mEq/L (98-107); CREATININE - SERUM 0.8 mg/dL (0.6-1.2); GLUCOSE 140 mg/dL (70-105); MAGNESIUM 2.1 mg/dL (1.9-2.7); POTASSIUM SERUM 3.4 mEq/L (3.5-5.1); SODIUM SERUM 136 mEq/L (136-145)
[2016-11-13] MEDS: Budesonide 0.5 Mg/2 mL Ud HHN SCH (07:21)
[2016-11-13] MEDS: Chlorhexidine Gluconate 0.12% 15mL Mouthwash MM SCH (08:51)
[2016-11-13] MEDS: Ferrous Sulfate 300 MG/5 ML UDC GT SCH (09:28)
[2016-11-13] MEDS: Fluconazole 100mg/50mL 100 MG/50 ML BOTTLE IV SCH (09:30)
[2016-11-13] MEDS: cefTRIAXone 1 GM in Sodium Chloride 0.9% 50 ML IV SCH (09:31)
[2016-11-13] MEDS: Lactobacillus Rhamnosus 10 Billion CFU Capsule GT SCH (09:31)
--- NOTE | 2016-11-14 03:34 | Discharge Summary ---
DATE OF DISCHARGE: 11/13/2016 ADMITTING DIAGNOSES: 1 Severe anemia, rule out gastrointestinal bleed. 2. Abdominal distention. 3. Dehydration. 4. Azotemia. 5. Hyperkalemia. SECONDARY DIAGNOSES: 1. Chronic respiratory failure, vent dependent, status post trach. 2. History of chronic anemia. 3. History of paroxysmal atrial fibrillation. 4. History of coronary artery disease. 5. History of cerebrovascular accident. 6. History of dyslipidemia. 7. History of percutaneous endoscopic gastrostomy placement. DISCHARGE DIAGNOSES: 1. Severe anemia, status post packed red blood cells transfusion, stable. 2. Azotemia, resolved. 3. Abdominal distension, resolved. 4. Left lower lobe atelectasis, stable. 5. Yeast infection-uti CONSULTANTS: 1. Dr. Wick, Gastrointestinal. 2. Dr. Carreon, Surgery. 3. Dr. Calderon, Cardiology. MAJOR PROCEDURES: Small-bowel series showing no evidence of small-bowel obstruction. There is small amount of gastroesophageal reflux. There is a left basilar lung opacity which may be due to atelectasis versus infiltrate. MEDICATIONS ON DISCHARGE: Tylenol p.r.n.; DuoNeb q.4 hours p.r.n.; amiodarone 200 mg everyday, Dulcolax 10 mg p.r.n. daily rectally for severe constipation, Pulmicort 0.5 1 puff b.i.d., iron sulfate 325 b.i.d., fluconazole 150 mg q.24 hours x 7 more days. Morphine p.r.n. for severe pain 1 mg IV push q.4, Zofran 4 mg q.6 p.r.n. for nausea and vomiting, Protonix 40 mg via G-tube daily, amlodipine 5 mg daily, Rocephin 1 g q.24 hours x 7 days, and Flagyl 500mg IV q.8 hours x 7 more days. BRIEF HOSPITAL COURSE: This is an 86-year-old lady with multiple medical problems, who presented from long term with an H and H of 02/11 and a creatinine level of 6.1. The patient was admitted and placed on IV fluids and on empiric IV antibiotics. She was also given 2 units of PRBC and it was noted that she had abdominal distension for which a Gastrointestinal and a Surgical evals for possible small-bowel obstruction were obtained. The patient's condition did improve, and by 11/09/2016 her H and H had improved to a level of 10/29 and at that time her BUN and creatinine had normalized. Of note, she also came in with a sodium level of 127 which had improved to 134 by 11/09/2016. Her feeds were resumed and she was able to tolerate them with no residuals, and she underwent the above-mentioned procedure without any complications. She had been admitted to this facility few weeks prior and was diagnosed with pneumonia; however, she did not have any symptomatology of pneumonia or sepsis. Nevertheless, she was kept on Rocephin and Flagyl and Fluconazole was added when her urine grew yeast. The patient has remained stable throughout her hospital stay and her H and H and the rest of her labs have remained on the stable side. CONDITION ON DISCHARGE: Stable. DISPOSITION: The patient will be discharged back to Subacute Unit under the care of Dr. Pollard. JOB# [id number] [facility]
== END 2016-11-13 13:47 | DRG 207 ==
LOC: ER 11:29 → ICU 15:04
PROVIDERS: ADMIT Internal Medicine; ATTEND Internal Medicine
PROC: 5A1955Z Respiratory Ventilation, Greater than 96 Consecutive Hours (ICD-10-PCS; principal; 2016-11-07)
PROC: 05HY33Z Insertion of Infusion Device into Upper Vein, Percutaneous Approach (ICD-10-PCS; 2016-11-07)
PROC: 30233N1 Transfusion of Nonautologous Red Blood Cells into Peripheral Vein, Percutaneous Approach (ICD-10-PCS; 2016-11-08)
DX: J96.20 Acute and chronic respiratory failure, unspecified whether with hypoxia or hypercapnia (principal); J90 Pleural effusion, not elsewhere classified; E46 Unspecified protein-calorie malnutrition; I48.0 Paroxysmal atrial fibrillation; E87.1 Hypo-osmolality and hyponatremia; Z93.0 Tracheostomy status; I47.1 Supraventricular tachycardia; N39.0 Urinary tract infection, site not specified; J44.9 Chronic obstructive pulmonary disease, unspecified; R13.10 Dysphagia, unspecified; Z99.11 Dependence on respirator [ventilator] status; I10 Essential (primary) hypertension; J98.11 Atelectasis; D50.9 Iron deficiency anemia, unspecified; J96.10 Chronic respiratory failure, unspecified whether with hypoxia or hypercapnia; R14.0 Abdominal distension (gaseous); N28.9 Disorder of kidney and ureter, unspecified; E86.0 Dehydration; E78.5 Hyperlipidemia, unspecified; K21.9 Gastro-esophageal reflux disease without esophagitis; I69.30 Unspecified sequelae of cerebral infarction; I25.119 Atherosclerotic heart disease of native coronary artery with unspecified angina pectoris; E87.6 Hypokalemia; Z93.1 Gastrostomy status; Z82.49 Family history of ischemic heart disease and other diseases of the circulatory system
CPT/HCPCS: 36415-UA; 71010-TC; 74020-TC; 74250-TC; 80048-TC; 80053-TC; 80061-TC; 81001-TC; 82270-TC; 82550-TC; 82607-90; 82728-90; 82746-90; 82948-90; 83010-90; 83540-90; 83550-90; 83605; 83690-TC; 83735-TC; 83880-TC; 84443-TC; 84484-TC; 85007-TC; 85025-TC; 85027-TC; 85044-TC; 85610-TC; 86850-TC; 86900-TC; 86901-TC; 86922-TC; 87070; 87086-90; 90799; 93005; 94002; 94003; 94760; C9113; J0696; J1940; J2270; J3475; J3480; J7030; J7042; P9016; Z7610

== ENCOUNTER 2018-03-10 10:56 | Inpatient (IN) | payer MEDICARE, MEDICAID ==
[2018-03-10] MEDS ORDERED: Diatrizoate Meglumine/Diatri 30 mL Sol ONE (11:25)
[2018-03-10 11:48] LABS: % BASOPHILS 0.5 % (0.0-2.0); % EOSINOPHILS 1.5 % (0.0-5.0); % LYMPHOCYTES 12.7 % (20.0-50.0); % MONOCYTES 6.5 % (2.0-10.0); % NEUTROPHILS 78.8 % (40.0-80.0); EOSINOPHILE ABSOLUTE 0.1 Th/cmm (0.1-0.4); HEMATOCRIT 29.3 % (41.0-60); HEMOGLOBIN 10.5 gm/dL (12-16); LYMPHOCYTE ABSOLUTE 0.7 Th/cmm (1.5-3.0); MEAN CORPUSCULAR HEMOGLOBIN 36.9 pg (27.0-31.0); MEAN CORPUSCULAR HGB CONC 35.8 pg (28.0-36.0); MEAN PLATELET VOLUME 6.1 fl; MONOCYTE ABSOLUTE 0.4 Th/cmm (0.3-1.0); NEUTROPHILE ABSOLUTE 4.4 Th/cmm (1.8-8.0); PLATELET COUNT 239 Th/cmm (150-400); RED BLOOD COUNT 2.85 Mil/cmm (3.80-5.20); RED CELL DISTRIBUTION WIDTH 13.5 % (11.5-20.0); WHITE BLOOD COUNT 5.6 Th/cmm (4.8-10.8)
--- NOTE | 2018-03-10 11:53 | ED Physician Chart ---
ED Chief Complaint/HPI - Patient Information Date Seen:: 03/10/18 Time Seen:: 11:11 Chief Complaint:: GTUBE MALFUNCTION History of Present Illness:: 87 [place] pt is with trach g-tube and vent and is here bib paramedics Allergies:: Allergies Allergy/AdvReac Type Severity Reaction Status Date / Time No Known Allergies Allergy Verified 10/26/16 06:09 Vitals:: Vital Signs - 8 hr 03/10/18 11:07 HR 66 O2 Sat % 100 ED Review of Systems - Review of Systems Skin: Skin lesions (sacral decubiti) Neck: No thyromegaly Pulmonary: Cough, Wheezing GI: No vomiting, No melena Psychiatric: No anxiety Neurological: No syncope ED Past Medical History - Past Medical History Past Medical History: HTN, DM, CHF, CVA/TIA Family Medical History - Family Member Mother History Unknown: Yes Ethnicity: Unknown Living Status: Hx Family Cancer: No Hx Family Coronary Artery Disease: Yes (MOTHER) Hx Family Congestive Heart Failure: No Hx Family Hypertension: (unknown) Hx Family Stroke: (unknown) Hx Family Diabetes: (unknown) Hx Family Seizures: (unknown) Hx Family Dementia: (unknown) Hx Family AIDS: (unknown) Hx Family HIV: No Hx Family COPD: (unknown) Hx Family Hepatitis: (unknown) Hx Family Psychiatric Problems: (unknown) Hx Family Tuberculosis: (unknown) ED Physical Exam - Physical Examination Head: Atraumatic Eyes: Lids, conjuctiva normal Other Skin comments:: small sacral decubiti Other Respiratory comments:: vent dependent with diffuse rhonchi Other GI comments:: distended abd mod tenderness to palpation Other Neuro/Psych comments:: pt opens eyes spomtaneously diffuse edema anasarca and flaccidity with contractures ED Assessment - Assessment General Assessment: vent dependent with anasarca edema abd distention and g-tube malfunction ED Septic Shock - . Is Septic Shock (SBP<90, OR Lactate>4 mmol\L) present?: No - <6hrs of presentation: Vital Signs: Vital Signs - 8 hr 03/10/18 11:07 HR 66 O2 Sat % 100 ED Reassessment (Disposition) - Diagnosis Diagnosis:: as above g-tube malfunction resp distress edema bowel malfunction - Patient Disposition Discharge/Transfer:: Acute Care w/in this hosp Condition at Disposition:: Critical
[2018-03-10 12:07] LABS: ALB/GLOB RATIO 0.9 (1.0-1.8); ALBUMIN 3.5 gm/dL (3.7-5.3); ALKALINE PHOSPHATASE 62 U/L (34-104); ANION GAP 10.2 (7.0-16.0); BILIRUBIN,TOTAL 0.6 mg/dL (0.3-1.0); BUN - UREA NITROGEN 21 mg/dL (7-25); CALCIUM SERUM 9.4 mg/dL (8.6-10.3); CHLORIDE 100 mEq/L (98-107); CREATININE - SERUM 0.9 mg/dL (0.6-1.2); GLUCOSE 157 mg/dL (70-105); POTASSIUM SERUM 4.2 mEq/L (3.5-5.1); SGOT 18 U/L (13-39); SGPT/ALT 23 U/L (7-52); SODIUM SERUM 131 mEq/L (136-145); TOTAL PROTEIN,SERUM 7.4 gm/dL (6.0-8.3)
[2018-03-10 12:11] LABS: TROP I 0.02 ng/mL (0.01-0.05)
[2018-03-10] MEDS ORDERED: Piperacillin Sodium/Tazobact 3.375 gm Vial IV ONE (13:58)
[2018-03-10] MEDS ORDERED: Sodium Chloride 0.9% 1,000 ML IV SCH ×2 (15:45→16:30)
[2018-03-10] MEDS ORDERED: INSULIN HUMAN REGULAR 100 UNITS/ML UNIT SUBQ SCH (16:30)
[2018-03-10] MEDS ORDERED: INSULIN ASPART SLIDING SCALE 100 UNITS/ML UNIT SUBQ SCH (17:00)
--- NOTE | 2018-03-10 17:52 | History & Physical ---
ADMIT DATE: 03/10/2018 CHIEF COMPLAINT: The patient came in because of leaking gastrostomy tube. HISTORY OF PRESENT ILLNESS: This is an 87-year-old female with past medical history of respiratory failure, vent dependent, who was brought in because of a Leaking gastrostomy tube. A few hours prior to admission, the patient was noted to have a leaking gastrostomy tube. The exit site of the gastrostomy tube was very erythematous. Thus, the patient was sent to the Emergency Room. White count was 5.6 and the patient was afebrile. She was started on Rocephin. PAST MEDICAL HISTORY: 1. Respiratory failure, ventilator dependent. 2. Status post cerebrovascular accident. 3. Type 2 diabetes mellitus. 4. Essential hypertension. 5. History of congestive heart failure 6. Peripheral edema. PAST SURGICAL HISTORY: 1. Status post tracheostomy. 2. Status post PEG placement. CURRENT MEDICATIONS: The patient is currently on ceftriaxone, pantoprazole. ALLERGIES: No known drug allergies. SOCIAL AND FAMILY HISTORY: I was not able to obtain directly from the patient because she is currently on a ventilator. REVIEW OF SYSTEMS: Again, I was not able to decipher directly from the patient because of the same reason. PHYSICAL EXAMINATION: GENERAL: The patient is awake, on a ventilator, not in any distress. VITAL SIGNS: Her blood pressure is 144/74, pulse 68, temperature 97.4 degrees. SKIN: Good turgor, warm, no rash, no jaundice appreciated. HEENT: Head normocephalic, atraumatic. Eyes: Extraocular muscles intact. Pupils equal, round, reactive to light and accommodates. Anicteric sclerae. Pale conjunctivae. Nose, midline nasal septum. Mouth: Dry mucosa. Poor dentition. NECK: Supple, no adenopathy, no thyromegaly, no bruits. Presence of a trach tube at the midline. CHEST AND CARDIOVASCULAR: S1, S2. No rub, murmur or gallop appreciated. Point of maximal impulse at fifth intercostal space, left midclavicular line. No abdominal or femoral bruits appreciated. LUNGS: Equal expansion. No use of accessory muscles. No supraclavicular retractions. Occasional rhonchi, but no rales or wheezes appreciated. BREASTS: Symmetrical, without any discharge. ABDOMEN: Globular, soft. Positive for bowel sounds. No bruits either diastolic or systolic. Presence of formula at the exit site with extensive erythema surrounding this area. RECTAL: Lax sphincter tone. GENITOURINARY: Normal appearing female genitalia. MUSCULOSKELETAL: No effusions present in her joints, but unable to assess her range of motion. EXTREMITIES: She has peripheral upper extremity edema and I would say +1 to 2 bipedal edema. No evidence of any cyanosis or clubbing. However, she has a palpable femoral, but unable to fully appreciate popliteal and dorsalis pedis pulses. NEUROLOGIC: As mentioned, the patient on a ventilator, unable to comprehend by neuro commands, so I was unable to pursue further my neuro exam. LABORATORY DATA AND STUDIES: Did reveal white count 5.6, hemoglobin 10.5, hematocrit 29.3, platelets 239, polys 78.8%. Sodium 131, potassium 4.2, chloride 100, bicarbonate 25, BUN 21, creatinine 0.7, albumin 3.5. IMPRESSION: 1. Leaking gastrostomy tube with cellulitis at exit site. 2. Respiratory failure, vent dependent. 3. Status post cerebrovascular accident. 4. Type 2 diabetes mellitus. 5. Essential hypertension. 6. History of congestive heart failure. 7. Peripheral edema. PLAN: 1. Antibiotics. 2. Wound culture and sensitivity. 3. Gentle hydration. 4. Start on PPI. 5. Lasix x 1 due to peripheral edema. 6. GI consult. 7. Pulmonary consult. JOB# [id number]
[2018-03-10] MEDS: cefTRIAXone 1 GM in Sodium Chloride 0.9% 50 ML IV SCH (18:07)
[2018-03-10] MEDS: D5-0.9%NS 1,000 ML IV SCH (18:09)
[2018-03-10] MEDS: INSULIN ASPART, RECOMBINANT 100 UNITS/ML SUBQ SCH (20:45)
[2018-03-10] MEDS: Chlorhexidine Gluconate 0.12% 15mL Mouthwash MM SCH (21:04)
[2018-03-11 04:25] LABS: % BASOPHILS 0.5 % (0.0-2.0); % EOSINOPHILS 1.7 % (0.0-5.0); % MONOCYTES 6.2 % (2.0-10.0); % NEUTROPHILS 81.6 % (40.0-80.0); EOSINOPHILE ABSOLUTE 0.1 Th/cmm (0.1-0.4); HEMATOCRIT 31.5 % (41.0-60); HEMOGLOBIN 10.7 gm/dL (12-16); LYMPHOCYTE ABSOLUTE 0.7 Th/cmm (1.5-3.0); MEAN CELL VOLUME 100.4 fl (81-100); MEAN CORPUSCULAR HEMOGLOBIN 34.2 pg (27.0-31.0); MEAN PLATELET VOLUME 5.9 fl; MONOCYTE ABSOLUTE 0.4 Th/cmm (0.3-1.0); NEUTROPHILE ABSOLUTE 5.8 Th/cmm (1.8-8.0); PLATELET COUNT 264 Th/cmm (150-400); RED BLOOD COUNT 3.14 Mil/cmm (3.80-5.20); RED CELL DISTRIBUTION WIDTH 13.6 % (11.5-20.0)
[2018-03-11 05:21] LABS: ALB/GLOB RATIO 0.8 (1.0-1.8); ALBUMIN 3.4 gm/dL (3.7-5.3); ALKALINE PHOSPHATASE 75 U/L (34-104); ANION GAP 11.9 (7.0-16.0); BILIRUBIN,TOTAL 0.7 mg/dL (0.3-1.0); BUN - UREA NITROGEN 20 mg/dL (7-25); CALCIUM SERUM 9.3 mg/dL (8.6-10.3); CARBON DIOXIDE 26.2 mEq/L (21.0-31.0); CHLORIDE 101 mEq/L (98-107); CREATININE - SERUM 1.1 mg/dL (0.6-1.2); GLUCOSE 160 mg/dL (70-105); POTASSIUM SERUM 4.1 mEq/L (3.5-5.1); SGOT 19 U/L (13-39); SGPT/ALT 24 U/L (7-52); SODIUM SERUM 135 mEq/L (136-145); TOTAL PROTEIN,SERUM 7.5 gm/dL (6.0-8.3)
[2018-03-11] MEDS: INSULIN ASPART, RECOMBINANT 100 UNITS/ML SUBQ SCH ×3 (07:03→17:53)
--- NOTE | 2018-03-11 08:21 | Diagnostic Imaging Report ---
Exam: Contrast injection gastrostomy tube. HISTORY: G-tube malfunction. Findings: 60 mg of Gastrografin was injected and the gastrostomy tube demonstrates normal progression contrast material into the stomach with contrast material progressing into small bowel. There is no evidence for extravasation of contrast material. IMPRESSION: Satisfactory positioning of the gastrostomy tube with tip in the stomach.
[2018-03-11] MEDS: Chlorhexidine Gluconate 0.12% 15mL Mouthwash MM SCH ×2 (08:45→20:59)
--- NOTE | 2018-03-11 09:16 | Diagnostic Imaging Report ---
Portable chest x-ray HISTORY: Shortness of breath. The heart is enlarged. Accentuation of the lower interstitial lung markings. However, no definite acute focal processes are seen. Tracheostomy noted. Multiple metallic densities in fragment noted about the right periclavicular region. No change from 11/10/2016. IMPRESSION: 1. Cardiomegaly 2. Accentuation of the interstitial lung markings. However, no focal processes are seen. 3. Multiple metallic densities within the soft tissues adjacent to the distal portion of the right clavicle.
[2018-03-11] MEDS: Potassium Chloride Elixir 20 mEq /15 mL UDC GT SCH (09:48)
[2018-03-11] MEDS ORDERED: Diatrizoate Meglumine/Diatri 30 mL Sol PO ONE (12:34)
--- NOTE | 2018-03-11 14:16 | Diagnostic Imaging Report ---
Upper GI (Limited) HISTORY: Gastrostomy tube placement The preliminary sieve maker radiograph demonstrates residual contrast within nondilated large bowel. Water-soluble contrast was instilled through the patient's gastrostomy tube. The exam demonstrates opacification of the gastric lumen. There is free flow of contrast from the stomach into the small bowel. Suggestion of a diverticulum off the second portion of the duodenum. IMPRESSION: 1. Confirmation of gastrostomy tube within the gastric lumen.
[2018-03-11] MEDS: cefTRIAXone 1 GM in Sodium Chloride 0.9% 50 ML IV SCH (15:35)
--- NOTE | 2018-03-11 17:01 | Operative Report ---
DATE OF SURGERY: 03/11/2018 PROCEDURE: G-tube replacement. DESCRIPTION OF PROCEDURE: The procedure took place at the bedside of the Intensive Care Unit of [facility]. She was kept in a supine position. The existing G-tube which was actually a 22-Iranian Carrillo catheter was removed after its inner balloon tip was deflated using a syringe. Using the same gastrocutaneous fistula site, a new 22-Iranian replacement G-tube was inserted into the stomach. A 24-Iranian G-tube was not available. The inner balloon tip of the new G-tube was inflated using 20 mL of sterile water. The outer bumper was placed as close to the skin as possible. Overlying dressing was placed. The tube was noted to be in good position. The patient tolerated the procedure well, no complications are anticipated. RECOMMENDATIONS: We will obtain a contrast KUB to confirm that the new G-tube is in satisfactory position of the stomach. Once this is confirmed, then may use G-tube for water flushes and medications and feedings as tolerated. If there is persistent leakage, then consider replacement to even a larger caliber size, which is a 24-Iranian G-tube. Thank you Dr. Zulema Causey for involving us in the care of this patient. If you have any further questions, please call us. JOB# [id number]
[2018-03-11 17:24] LABS: A1C % 6.5 % (4.0-6.0)
[2018-03-11] MEDS: D5-0.9%NS 1,000 ML IV SCH (17:54)
[2018-03-12] MEDS: INSULIN ASPART, RECOMBINANT 100 UNITS/ML SUBQ SCH ×4 (00:29→18:06)
--- NOTE | 2018-03-12 01:15 | Consultation ---
DATE OF CONSULTATION: 03/11/2018 GASTROENTEROLOGY CONSULTATION REQUESTING PHYSICIAN: Zulema Causey M.D. REASON FOR CONSULTATION: Dysphagia. HISTORY OF PRESENT ILLNESS: An 87-year-old female with Parkinson's disease, vent-dependent respiratory failure, status post tracheostomy, dysphagia, status post G-tube insertion whom we were asked to evaluate for a leaking G-tube. PAST MEDICAL HISTORY: As above. Also, notable for diabetes mellitus, old stroke, hypertension, peripheral edema. ALLERGIES: No known drug allergies. SOCIAL HISTORY: residential resident. No known tobacco, alcohol or drugs. FAMILY HISTORY: Noncontributory. REVIEW OF SYSTEMS: Negative. MEDICATIONS: Here are Lasix, insulin sliding scale, Protonix and potassium. PHYSICAL EXAMINATION: VITAL SIGNS: Temperature of 98.1, blood pressure is 140/68, pulse of 68, respirations 13, O2 sat is 100% on FIO2 32%. The patient is a well-developed, chronically ill-appearing female in no acute distress, nonverbal. HEENT: Tracheostomy is intact. CARDIOVASCULAR: Regular rate and rhythm. LUNGS: With occasional rhonchi at the base. ABDOMEN: Soft, nontender, nondistended. Intact G-tube, which actually is a Carrillo catheter of 22-Guamanian. There is some mild leakage of feedings around the G-tube insertion site. There is also mild erythema suggestive of cellulitis of the G-tube insertion site. RECTAL: Deferred. LABORATORY DATA AND IMAGING: WBC 7, hemoglobin 10.7, platelet count is 264. Sodium 135, creatinine normal. Liver enzymes normal. Albumin 3.4. Stool OB negative. An upper GI series done yesterday showed satisfactory position of the G-tube within the stomach. IMPRESSION: 1. Leaking G-tube with dysphagia, perhaps from a combination of ileus or constipation or fistula being larger in caliber than the caliber of the G-tube. Also, it being a Carrillo catheter, likely slides up and down along the G-tube insertion site and does not form a tight seal to keep the areas snug. 2. Vent-dependent respiratory failure. 3. Dysphagia. 4. Diabetes mellitus. 5. Old stroke. RECOMMENDATIONS: 1. We will change G-tube at the bedside to a larger caliber if possible. 2. Further recommendations following G-tube replacement. Thank you, Dr. Zulema Causey for involving us in the care of your patient. If you have any further questions, please call us. JOB# [id number]
[2018-03-12 05:22] LABS: % BASOPHILS 0.2 % (0.0-2.0); % EOSINOPHILS 1.8 % (0.0-5.0); % LYMPHOCYTES 14.2 % (20.0-50.0); % MONOCYTES 8.9 % (2.0-10.0); % NEUTROPHILS 74.9 % (40.0-80.0); EOSINOPHILE ABSOLUTE 0.1 Th/cmm (0.1-0.4); HEMATOCRIT 32.3 % (41.0-60); HEMOGLOBIN 10.9 gm/dL (12-16); LYMPHOCYTE ABSOLUTE 0.8 Th/cmm (1.5-3.0); MEAN CELL VOLUME 100.5 fl (81-100); MEAN CORPUSCULAR HEMOGLOBIN 33.8 pg (27.0-31.0); MEAN CORPUSCULAR HGB CONC 33.7 pg (28.0-36.0); MEAN PLATELET VOLUME 6.4 fl; MONOCYTE ABSOLUTE 0.5 Th/cmm (0.3-1.0); NEUTROPHILE ABSOLUTE 4.3 Th/cmm (1.8-8.0); RED BLOOD COUNT 3.21 Mil/cmm (3.80-5.20); RED CELL DISTRIBUTION WIDTH 13.3 % (11.5-20.0); WHITE BLOOD COUNT 5.7 Th/cmm (4.8-10.8)
[2018-03-12 05:24] LABS: PLATELET COUNT 228 Th/cmm (150-400)
[2018-03-12 05:26] LABS: ANION GAP 13.6 (7.0-16.0); BUN - UREA NITROGEN 18 mg/dL (7-25); CALCIUM SERUM 9.3 mg/dL (8.6-10.3); CARBON DIOXIDE 25.8 mEq/L (21.0-31.0); CHLORIDE 103 mEq/L (98-107); CREATININE - SERUM 1.1 mg/dL (0.6-1.2); GLUCOSE 189 mg/dL (70-105); POTASSIUM SERUM 3.4 mEq/L (3.5-5.1); SODIUM SERUM 139 mEq/L (136-145)
[2018-03-12] MEDS ORDERED: Potassium Chloride Elixir 20 mEq /15 mL UDC GT ONE (08:00)
[2018-03-12] MEDS: Chlorhexidine Gluconate 0.12% 15mL Mouthwash MM SCH ×2 (08:45→20:10)
[2018-03-12] MEDS ORDERED: Non-Formulary Item 1 EA (Cran/Vitc/Mannose/Fos/Bromeln [Uti-Stat Liquid] 30 ML) GT SCH (09:15)
[2018-03-12] MEDS: Potassium Chloride Elixir 20 mEq /15 mL UDC GT SCH (09:25)
--- NOTE | 2018-03-12 09:43 | Consultation ---
DATE OF CONSULTATION: 03/11/2018 Thank you very much, Dr. Causey for this consultation. HISTORY OF PRESENT ILLNESS: This is an 87-year-old female with history of chronic respiratory failure, ventilator dependent; CVA; and dementia presents with the G-tube malfunction, admitted for treatment and management. The patient's G-tube apparently was changed this morning. The patient appears to be comfortable, in distress. PAST MEDICAL HISTORY: No other complaints. No other history available. PHYSICAL EXAMINATION: VITAL SIGNS: Temperature 97.2, pulse 71, respiration is 12, blood pressure 135/66, and saturation 100%. HEENT: Atraumatic and normocephalic. Pupils react to light and accommodation. Ears, nose, and throat normal. NECK: Supple. No JVD. CHEST: There are good breath sounds. No wheezing or crackles. HEART: Regular rate and rhythm. No murmurs. ABDOMEN: Soft. EXTREMITIES: No edema. LABORATORY DATA: WBC 7.0, hemoglobin 10.7, hematocrit 31.5, and platelets 264. Sodium 135, potassium 4.1, BUN 20, and creatinine 1.1. IMPRESSION: 1. Respiratory failure. 2. G-tube malfunction status post replacement. 3. Dysphagia. PLAN: 1. Continue ventilator support for the current settings. 2. Nebulizer treatment. 3. Pulmonary toilet. 4. GI followup. We will follow the patient with you. Thank you very much for this consultation. JOB# [id number]
[2018-03-12] MEDS: Ferrous Sulfate 300 MG/5 ML UDC GT SCH ×2 (10:49→16:33)
--- NOTE | 2018-03-12 11:11 | Diagnostic Imaging Report ---
KUB single view HISTORY: G-tube placement. COMPARISON: Upper GI on 03/11/2018 FINDINGS: Assessment of the G-tube is limited as Gastrografin was not inserted into the G-tube. The bowel gas pattern is nonspecific. IMPRESSION: G-tube noted. Assessment of the G tube is limited of Gastrografin was not inserted. Nonspecific bowel gas pattern.
[2018-03-12] MEDS: Meropenem 500 MG in Sodium Chloride 0.9% 100 ML IV SCH ×2 (13:20→20:05)
[2018-03-12 14:19] LABS: CARCINOEMBRYONIC ANTIGEN 6.4 ng/mL (0.0-4.7)
[2018-03-12] MEDS: Lactobacillus Rhamnosus GG 15 Billion CFU CAP.SPRINK GT SCH (16:33)
--- NOTE | 2018-03-12 21:34 | Operative Report ---
DATE OF SURGERY: 03/12/2018 REFERRING PHYSICIAN: Zluema Causey M.D. PROCEDURE: G-tube replacement. DESCRIPTION OF PROCEDURE AND FINDINGS: The procedure took place at the bedside of the Intensive Care Unit of [facility]. The patient was kept in a supine position. The existing 22-Danish replacement G-tube was removed after its inner balloon was deflated using a syringe. Using the same gastrocutaneous fistula site, a new 24-Danish replacement G-tube was inserted into the stomach. Its inner balloon tip was inflated using 20 mL of sterile water. The outer bumper was placed as close to the skin as possible. Overlying dressing was placed. The tube was noted to be in good position. The patient tolerated the procedure well, and no complications are anticipated. RECOMMENDATIONS: We will obtain a contrast KUB to confirm that the G-tube is in satisfactory position in the stomach. Once this is confirmed, then may use new G-tube for water flushes and medications and feedings as tolerated. Thank you Dr. Zulema Causey for involving us in the care for the patient. If you have any further questions, please call us. JOB# [id number] [id number]
[2018-03-13] MEDS: INSULIN ASPART, RECOMBINANT 100 UNITS/ML SUBQ SCH ×4 (00:19→18:23)
[2018-03-13 04:57] LABS: % BASOPHILS 0.7 % (0.0-2.0); % EOSINOPHILS 1.3 % (0.0-5.0); % LYMPHOCYTES 17.3 % (20.0-50.0); % MONOCYTES 11.7 % (2.0-10.0); EOSINOPHILE ABSOLUTE 0.1 Th/cmm (0.1-0.4); HEMATOCRIT 32.4 % (41.0-60); HEMOGLOBIN 10.8 gm/dL (12-16); LYMPHOCYTE ABSOLUTE 0.9 Th/cmm (1.5-3.0); MEAN CELL VOLUME 104.6 fl (81-100); MEAN CORPUSCULAR HEMOGLOBIN 35.1 pg (27.0-31.0); MEAN CORPUSCULAR HGB CONC 33.5 pg (28.0-36.0); MEAN PLATELET VOLUME 6.2 fl; MONOCYTE ABSOLUTE 0.6 Th/cmm (0.3-1.0); NEUTROPHILE ABSOLUTE 3.5 Th/cmm (1.8-8.0); PLATELET COUNT 244 Th/cmm (150-400); RED BLOOD COUNT 3.09 Mil/cmm (3.80-5.20); RED CELL DISTRIBUTION WIDTH 13.9 % (11.5-20.0); WHITE BLOOD COUNT 5.1 Th/cmm (4.8-10.8)
[2018-03-13 05:07] LABS: BUN - UREA NITROGEN 24 mg/dL (7-25); CARBON DIOXIDE 25.4 mEq/L (21.0-31.0); CREATININE - SERUM 1.2 mg/dL (0.6-1.2); GLUCOSE 220 mg/dL (70-105)
[2018-03-13] MEDS: Meropenem 500 MG in Sodium Chloride 0.9% 100 ML IV SCH ×3 (06:07→20:29)
[2018-03-13 06:28] LABS: ANION GAP 14.3 (7.0-16.0); CHLORIDE 106 mEq/L (98-107); POTASSIUM SERUM 3.7 mEq/L (3.5-5.1); SODIUM SERUM 142 mEq/L (136-145)
[2018-03-13] MEDS: Chlorhexidine Gluconate 0.12% 15mL Mouthwash MM SCH ×2 (08:00→20:30)
[2018-03-13] MEDS: Ferrous Sulfate 300 MG/5 ML UDC GT SCH ×2 (08:35→16:50)
[2018-03-13] MEDS: Potassium Chloride Elixir 20 mEq /15 mL UDC GT SCH (08:36)
[2018-03-13] MEDS: Lactobacillus Rhamnosus GG 15 Billion CFU CAP.SPRINK GT SCH ×2 (08:37→16:50)
[2018-03-13] MEDS: Multivitamin w/ Minerals Tab GT SCH (08:37)
[2018-03-13] MEDS ORDERED: Potassium Chloride Elixir 20 mEq /15 mL UDC GT ONE (11:12)
[2018-03-13] MEDS ORDERED: Probiotic Screen MC PRN (11:33)
--- NOTE | 2018-03-13 12:02 | GI Progress Note ---
Subjective - Review of Systems Service Date: 03/13/18 Subjective: GI NOTE EVENTS NOTED. MARILEE GT FEEDS WITHOUT LEAK. Objective - Results Result Diagrams: 03/13/18 04:35 03/13/18 04:35 Recent Labs: Laboratory Last Values WBC 5.1 Th/cmm (4.8-10.8) 03/13/18 04:35 RBC 3.09 Mil/cmm (3.80-5.20) L 03/13/18 04:35 Hgb 10.8 gm/dL (12-16) L 03/13/18 04:35 Hct 32.4 % (41.0-60) L 03/13/18 04:35 MCV 104.6 fl (81-100) H 03/13/18 04:35 MCH 35.1 pg (27.0-31.0) H 03/13/18 04:35 MCHC Differential 33.5 pg (28.0-36.0) 03/13/18 04:35 RDW 13.9 % (11.5-20.0) 03/13/18 04:35 Plt Count 244 Th/cmm (150-400) 03/13/18 04:35 MPV 6.2 fl 03/13/18 04:35 Neutrophils % 69.0 % (40.0-80.0) 03/13/18 04:35 Lymphocytes % 17.3 % (20.0-50.0) L 03/13/18 04:35 Monocytes % 11.7 % (2.0-10.0) H 03/13/18 04:35 Eosinophils % 1.3 % (0.0-5.0) 03/13/18 04:35 Basophils % 0.7 % (0.0-2.0) 03/13/18 04:35 Sodium 142 mEq/L (136-145) 03/13/18 04:35 Potassium 3.7 mEq/L (3.5-5.1) 03/13/18 04:35 Chloride 106 mEq/L (98-107) 03/13/18 04:35 Carbon Dioxide 25.4 mEq/L (21.0-31.0) 03/13/18 04:35 Anion Gap 14.3 (7.0-16.0) 03/13/18 04:35 BUN 24 mg/dL (7-25) 03/13/18 04:35 Creatinine 1.2 mg/dL (0.6-1.2) 03/13/18 04:35 Est GFR ( Amer) TNP 03/13/18 04:35 Est GFR (Non-Af Amer) TNP 03/13/18 04:35 BUN/Creatinine Ratio 20.0 03/13/18 04:35 Glucose 220 mg/dL (70-105) H 03/13/18 04:35 POC Glucose 212 MG/DL (70 - 105) H 03/13/18 11:50 Hemoglobin A1c % 6.5 % (4.0-6.0) H 03/11/18 04:15 Whole Bld Lactic Acid 0.84 mmol/L (0.60-1.99) 03/10/18 11:30 Calcium 9.0 mg/dL (8.6-10.3) 03/13/18 04:35 Magnesium 2.0 mg/dL (1.9-2.7) 03/12/18 04:10 Iron 66 ug/dL (27-139) 03/11/18 04:15 TIBC 277 ug/dL (250-450) 03/11/18 04:15 Iron Saturation 24 % (15-55) 03/11/18 04:15 Unsaturated IBC 211 ug/dL (118-369) 03/11/18 04:15 Ferritin 460 ng/mL (15-150) H 03/11/18 04:15 Total Bilirubin 0.7 mg/dL (0.3-1.0) 03/11/18 04:15 AST 19 U/L (13-39) 03/11/18 04:15 ALT 24 U/L (7-52) 03/11/18 04:15 Alkaline Phosphatase 75 U/L (34-104) 03/11/18 04:15 Troponin I 0.02 ng/mL (0.01-0.05) 03/10/18 11:30 Total Protein 7.5 gm/dL (6.0-8.3) 03/11/18 04:15 Albumin 3.4 gm/dL (3.7-5.3) L 03/11/18 04:15 Globulin 4.1 gm/dL 03/11/18 04:15 Albumin/Globulin Ratio 0.8 (1.0-1.8) L 03/11/18 04:15 Carcinoembryonic Ag 6.4 ng/mL (0.0-4.7) H 03/11/18 04:15 TSH 1.62 uIU/ml (0.34-5.60) 03/11/18 04:15 Stool Occult Blood NEGATIVE (NEGATIVE) 03/12/18 11:15 - Physical Exam Vitals and I&O: Vital Signs Temp 98.0 F 03/13/18 07:00 Pulse 64 03/13/18 11:23 Resp 12 03/13/18 09:00 BP 109/54 03/13/18 11:23 Pulse Ox 100 03/13/18 10:00 Intake & Output 03/12/18 03/13/18 03/13/18 18:59 06:59 18:59 Intake Total 1150 940 100 Output Total 1400 350 Balance -250 590 100 Weight (lbs) 72.773 kg 72.575 kg Intake: Intake, IV Amount 350 100 100 Meropenem 500 mg In 100 100 100 Sodium Chloride 0.9% 100 ml @ 100 mls/hr IV Q8HR [facility] Rx#:[id number] Tube Feeding 500 720 Other 300 120 Output: Urine 1400 350 Other: # Bowel Movements 3 1 Stool Characteristics Liquid Mucoid Brown Green Weight Source Bedscale Bedscale Active Medications: Current Medications Acetaminophen (Tylenol 650mg/20.3ml Suspension) 650 mg GT Q6H PRN PRN Reason: Pain or Fever >101 Stop: 05/11/18 09:12 Last Admin: 03/12/18 21:55 Dose: 650 mg Amiodarone HCl (Cordarone) 200 mg GT DAILY [facility] Stop: 05/11/18 09:59 Last Admin: 03/13/18 08:37 Dose: 200 mg Ascorbic Acid (Vitamin C) 500 mg GT DAILY [facility] Stop: 05/11/18 09:59 Last Admin: 03/13/18 08:36 Dose: 500 mg Chlorhexidine Gluconate (Peridex) 15 ml MM 799,1999 [facility] Stop: 05/09/18 19:59 Last Admin: 03/13/18 08:00 Dose: 15 ml Cyanocobalamin (Vitamin B12) 1,000 mcg GT DAILY [facility] Stop: 05/11/18 09:59 Last Admin: 03/13/18 08:35 Dose: 1,000 mcg Ferrous Sulfate (Iron) 300 mg GT BID [facility] Stop: 05/11/18 09:59 Last Admin: 03/13/18 08:35 Dose: 300 mg Furosemide (Lasix) 40 mg PO DAILY [facility] Stop: 05/12/18 10:59 Last Admin: 03/13/18 11:25 Dose: Not Given Meropenem 500 mg/ Sodium (Chloride) 100 mls @ 100 mls/hr IV Q8HR [facility] Stop: 05/11/18 12:59 Last Infusion: 03/13/18 10:06 Dose: Infused Insulin Aspart (Novolog) 0 units SUBQ Q6HR [facility]; Protocol Stop: 05/10/18 11:59 Last Admin: 03/13/18 11:53 Dose: 4 units Lactobacillus Rhamnosus (Culturelle 15b) 1 each GT BID [facility] Stop: 05/11/18 16:59 Last Admin: 03/13/18 08:37 Dose: 1 each Miscellaneous (Probiotic Screen) 1 ea PRN PRN PRN Reason: PROTOCOL Stop: 05/12/18 11:32 Pantoprazole Sodium (Protonix) 40 mg IVP DAILY [facility] Stop: 05/10/18 08:59 Last Admin: 03/13/18 08:37 Dose: 40 mg Spironolactone (Aldactone) 25 mg PO BID [facility] Stop: 05/12/18 10:59 Last Admin: 03/13/18 11:23 Dose: 25 mg General: No acute distress HEENT: Atraumatic Neck: Supple Cardiovascular: Regular rate Lungs: Other (VENT, TRACH) Abdomen: Bowel sounds, Soft, Other (INTACT GT WITHOUT LEAK), no Tender - Procedures Procedures: Procedures Procedure Code Date CHANGE FEEDING DEVICE IN UP INTEST TRACT, BENCH ASSEMBLER BATTERY APPROACH [id number] 03/10/18 CHANGE TRACHEOSTOMY DEVICE IN TRACHEA, EXTERNAL APPROACH [id number] 09/29/16 INSERTION OF FEEDING DEVICE INTO STOMACH, ENDO [id number] 09/29/16 INSERTION OF INFUSION DEVICE INTO UPPER VEIN, PERC APPROACH [id number] 11/07/16 REMOVAL OF FEEDING DEVICE FROM STOMACH, EXTERNAL APPROACH [id number] 09/29/16 RESPIRATORY VENTILATION, 24-96 CONSECUTIVE HOURS [id number] 03/10/18 RESPIRATORY VENTILATION, GREATER THAN 96 CONSECUTIVE HOURS [id number] 11/07/16 TRANSFUSE NONAUT RED BLOOD CELLS IN PERIPH VEIN, PERC 33225S4 11/07/16 VENT MGMT INPAT INIT DAY 11/07/16 VENT MGMT INPAT SUBQ DAY 11/07/16 Assessment/Plan - Assessment Assessment: IMPRESSION: 1. DYSPHAGIA WITH LEAKING GT - S/P REPLACEMENT TO 24F GT; NOW BETTER. 2. VDRF/TRACH. RECS: 1. GT FEEDS MARILEE. 2. GT CARE. 3. MONITOR LABS.
[2018-03-14] MEDS: INSULIN ASPART, RECOMBINANT 100 UNITS/ML SUBQ SCH ×3 (00:23→12:26)
[2018-03-14 04:48] LABS: % BASOPHILS 0.7 % (0.0-2.0); % EOSINOPHILS 1.9 % (0.0-5.0); % LYMPHOCYTES 15.2 % (20.0-50.0); % MONOCYTES 8.4 % (2.0-10.0); % NEUTROPHILS 73.8 % (40.0-80.0); EOSINOPHILE ABSOLUTE 0.1 Th/cmm (0.1-0.4); HEMATOCRIT 32.9 % (41.0-60); HEMOGLOBIN 10.9 gm/dL (12-16); LYMPHOCYTE ABSOLUTE 0.9 Th/cmm (1.5-3.0); MEAN CORPUSCULAR HEMOGLOBIN 33.7 pg (27.0-31.0); MONOCYTE ABSOLUTE 0.5 Th/cmm (0.3-1.0); NEUTROPHILE ABSOLUTE 4.4 Th/cmm (1.8-8.0); PLATELET COUNT 219 Th/cmm (150-400); RED BLOOD COUNT 3.23 Mil/cmm (3.80-5.20); RED CELL DISTRIBUTION WIDTH 14.4 % (11.5-20.0); WHITE BLOOD COUNT 5.9 Th/cmm (4.8-10.8)
[2018-03-14 05:03] LABS: ANION GAP 10.8 (7.0-16.0); BUN - UREA NITROGEN 30 mg/dL (7-25); CALCIUM SERUM 9.3 mg/dL (8.6-10.3); CARBON DIOXIDE 26.3 mEq/L (21.0-31.0); CHLORIDE 109 mEq/L (98-107); GLUCOSE 234 mg/dL (70-105); MAGNESIUM 2.1 mg/dL (1.9-2.7); POTASSIUM SERUM 4.1 mEq/L (3.5-5.1); SODIUM SERUM 142 mEq/L (136-145)
[2018-03-14] MEDS: Meropenem 500 MG in Sodium Chloride 0.9% 100 ML IV SCH (05:30)
[2018-03-14] MEDS: Chlorhexidine Gluconate 0.12% 15mL Mouthwash MM SCH (09:00)
[2018-03-14] MEDS ORDERED: Pantoprazole 40 mg/Packet PO SCH (09:00)
[2018-03-14] MEDS: Ferrous Sulfate 300 MG/5 ML UDC GT SCH ×2 (09:01→17:00)
[2018-03-14] MEDS: Lactobacillus Rhamnosus GG 15 Billion CFU CAP.SPRINK GT SCH ×2 (09:02→19:28)
[2018-03-14] MEDS: Multivitamin w/ Minerals Tab GT SCH (09:02)
--- NOTE | 2018-03-14 09:49 | GI Progress Note ---
Subjective - Review of Systems Service Date: 03/14/18 Subjective: GI NOTE EVENTS NOTED. MARILEE GT FEEDS WITH MINIMAL LEAK. Objective - Results Result Diagrams: 03/14/18 04:40 03/14/18 04:40 Recent Labs: Laboratory Last Values WBC 5.9 Th/cmm (4.8-10.8) 03/14/18 04:40 RBC 3.23 Mil/cmm (3.80-5.20) L 03/14/18 04:40 Hgb 10.9 gm/dL (12-16) L 03/14/18 04:40 Hct 32.9 % (41.0-60) L 03/14/18 04:40 MCV 102.0 fl (81-100) H 03/14/18 04:40 MCH 33.7 pg (27.0-31.0) H 03/14/18 04:40 MCHC Differential 33.0 pg (28.0-36.0) 03/14/18 04:40 RDW 14.4 % (11.5-20.0) 03/14/18 04:40 Plt Count 219 Th/cmm (150-400) 03/14/18 04:40 MPV 6.0 fl 03/14/18 04:40 Neutrophils % 73.8 % (40.0-80.0) 03/14/18 04:40 Lymphocytes % 15.2 % (20.0-50.0) L 03/14/18 04:40 Monocytes % 8.4 % (2.0-10.0) 03/14/18 04:40 Eosinophils % 1.9 % (0.0-5.0) 03/14/18 04:40 Basophils % 0.7 % (0.0-2.0) 03/14/18 04:40 Sodium 142 mEq/L (136-145) 03/14/18 04:40 Potassium 4.1 mEq/L (3.5-5.1) 03/14/18 04:40 Chloride 109 mEq/L (98-107) H 03/14/18 04:40 Carbon Dioxide 26.3 mEq/L (21.0-31.0) 03/14/18 04:40 Anion Gap 10.8 (7.0-16.0) 03/14/18 04:40 BUN 30 mg/dL (7-25) H 03/14/18 04:40 Creatinine 1.0 mg/dL (0.6-1.2) 03/14/18 04:40 Est GFR ( Amer) TNP 03/14/18 04:40 Est GFR (Non-Af Amer) TNP 03/14/18 04:40 BUN/Creatinine Ratio 30.0 03/14/18 04:40 Glucose 234 mg/dL (70-105) H 03/14/18 04:40 POC Glucose 209 MG/DL (70 - 105) H 03/13/18 18:01 Hemoglobin A1c % 6.5 % (4.0-6.0) H 03/11/18 04:15 Whole Bld Lactic Acid 0.84 mmol/L (0.60-1.99) 03/10/18 11:30 Calcium 9.3 mg/dL (8.6-10.3) 03/14/18 04:40 Magnesium 2.1 mg/dL (1.9-2.7) 03/14/18 04:40 Iron 66 ug/dL (27-139) 03/11/18 04:15 TIBC 277 ug/dL (250-450) 03/11/18 04:15 Iron Saturation 24 % (15-55) 03/11/18 04:15 Unsaturated IBC 211 ug/dL (118-369) 03/11/18 04:15 Ferritin 460 ng/mL (15-150) H 03/11/18 04:15 Total Bilirubin 0.7 mg/dL (0.3-1.0) 03/11/18 04:15 AST 19 U/L (13-39) 03/11/18 04:15 ALT 24 U/L (7-52) 03/11/18 04:15 Alkaline Phosphatase 75 U/L (34-104) 03/11/18 04:15 Troponin I 0.02 ng/mL (0.01-0.05) 03/10/18 11:30 Total Protein 7.5 gm/dL (6.0-8.3) 03/11/18 04:15 Albumin 3.4 gm/dL (3.7-5.3) L 03/11/18 04:15 Globulin 4.1 gm/dL 03/11/18 04:15 Albumin/Globulin Ratio 0.8 (1.0-1.8) L 03/11/18 04:15 Carcinoembryonic Ag 6.4 ng/mL (0.0-4.7) H 03/11/18 04:15 TSH 1.62 uIU/ml (0.34-5.60) 03/11/18 04:15 Stool Occult Blood NEGATIVE (NEGATIVE) 03/12/18 11:15 - Physical Exam Vitals and I&O: Vital Signs Temp 98.2 F 03/14/18 04:00 Pulse 67 03/14/18 09:03 Resp 12 03/14/18 06:00 BP 133/62 03/14/18 09:02 Pulse Ox 100 03/14/18 09:03 Intake & Output 03/13/18 03/14/18 03/14/18 18:59 06:59 18:59 Intake Total 762 920 Output Total 1300 450 Balance -538 470 Weight (lbs) 73.028 kg 73.482 kg Intake: Intake, IV Amount 200 100 Meropenem 500 mg In 200 100 Sodium Chloride 0.9% 100 ml @ 100 mls/hr IV Q8HR [facility] Rx#:[id number] Tube Feeding 562 720 Other 100 Output: Urine 1300 450 Other: # Bowel Movements 2 Stool Characteristics Soft Green Weight Source Bedscale Bedscale Active Medications: Current Medications Acetaminophen (Tylenol 650mg/20.3ml Suspension) 650 mg GT Q6H PRN PRN Reason: Pain or Fever >101 Stop: 05/11/18 09:12 Last Admin: 03/12/18 21:55 Dose: 650 mg Amiodarone HCl (Cordarone) 200 mg GT DAILY [facility] Stop: 05/11/18 09:59 Last Admin: 03/14/18 09:01 Dose: 200 mg Ascorbic Acid (Vitamin C) 500 mg GT DAILY [facility] Stop: 05/11/18 09:59 Last Admin: 03/14/18 09:02 Dose: 500 mg Chlorhexidine Gluconate (Peridex) 15 ml MM 0800,1999 [facility] Stop: 05/09/18 19:59 Last Admin: 03/14/18 09:00 Dose: 15 ml Cyanocobalamin (Vitamin B12) 1,000 mcg GT DAILY [facility] Stop: 05/11/18 09:59 Last Admin: 03/14/18 09:04 Dose: 1,000 mcg Ferrous Sulfate (Iron) 300 mg GT BID [facility] Stop: 05/11/18 09:59 Last Admin: 03/14/18 09:01 Dose: 300 mg Furosemide (Lasix) 40 mg PO DAILY [facility] Stop: 05/12/18 10:59 Last Admin: 03/14/18 09:02 Dose: 40 mg Meropenem 500 mg/ Sodium (Chloride) 100 mls @ 100 mls/hr IV Q8HR [facility] Stop: 05/11/18 12:59 Last Admin: 03/14/18 05:30 Dose: 100 mls/hr Insulin Aspart (Novolog) 0 units SUBQ Q6HR [facility]; Protocol Stop: 05/10/18 11:59 Last Admin: 03/14/18 05:54 Dose: 4 units Lactobacillus Rhamnosus (Culturelle 15b) 1 each GT BID [facility] Stop: 05/11/18 16:59 Last Admin: 03/14/18 09:02 Dose: 1 each Miscellaneous (Probiotic Screen) 1 [facility] PRN PRN PRN Reason: PROTOCOL Stop: 05/12/18 11:32 Pantoprazole Sodium (Protonix) 40 mg PO DAILY [facility] Stop: 05/13/18 08:59 Spironolactone (Aldactone) 25 mg PO BID [facility] Stop: 05/12/18 10:59 Last Admin: 03/14/18 09:01 Dose: 25 mg General: No acute distress HEENT: Atraumatic Neck: Supple Cardiovascular: Regular rate Lungs: Other (VENT, TRACH) Abdomen: Bowel sounds, Soft, Other (INTACT GT), no Tender - Procedures Procedures: Procedures Procedure Code Date CHANGE FEEDING DEVICE IN UP INTEST TRACT, RECREATION COORDINATOR APPROACH [id number] 03/10/18 CHANGE TRACHEOSTOMY DEVICE IN TRACHEA, EXTERNAL APPROACH [id number] 09/29/16 INSERTION OF FEEDING DEVICE INTO STOMACH, ENDO [id number] 09/29/16 INSERTION OF INFUSION DEVICE INTO UPPER VEIN, PERC APPROACH [id number] 11/07/16 REMOVAL OF FEEDING DEVICE FROM STOMACH, EXTERNAL APPROACH [id number] 09/29/16 RESPIRATORY VENTILATION, 24-96 CONSECUTIVE HOURS [id number] 03/10/18 RESPIRATORY VENTILATION, GREATER THAN 96 CONSECUTIVE HOURS [id number] 11/07/16 TRANSFUSE NONAUT RED BLOOD CELLS IN PERIPH VEIN, PERC 64322P6 11/07/16 VENT MGMT INPAT INIT DAY [id number] VENT MGMT INPAT SUBQ DAY 11/07/16 Assessment/Plan - Assessment Assessment: IMPRESSION: 1. DYSPHAGIA WITH LEAKING GT - S/P REPLACEMENT TO 24F GT; NOW BETTER. MILD LEAK EXPECTED. 2. VDRF/TRACH. RECS: 1. GT FEEDS MARILEE. 2. GT CARE. 3. MONITOR LABS. 4. DRESSING CHANGES. GI KOENIG STABLE.
--- NOTE | 2018-03-14 20:45 | Discharge Summary ---
DATE OF DISCHARGE: 03/14/2018 ADMITTING DIAGNOSES: 1. Malfunctioning/leaking G-tube. 2. G-tube cellulitis. 3. Generalized edema. 4. Hyponatremia. SECONDARY DIAGNOSES: Includes: 1. History of cerebrovascular accident with late effects. 2. Chronic respiratory failure - vent dependent, s/p trach. 3. Type 2 diabetes. 4. Essential hypertension. 5. History of congestive heart failure-clinically stable. 6. History of chronic anemia. 7. History of arrhythmia. 8. History of acid reflux disease. 9. History of dysphagia, status post PEG placement. DISCHARGE DIAGNOSES: 1. Malfunctioning - leaking G-tube - status post replacement. 2. G-tube cellulitis - E. coli, on IV antibiotics. 3. Generalized anasarca/bilateral lower extremity edema - likely dependent edema, improved, status post IV Lasix. 4. Hyponatremia, resolved. CONSULTANTS: Dr. Walker, GI and Dr. Hernandez, Pulmonary. MAJOR PROCEDURES AND DIAGNOSTICS: There was upper GI series done on 03/10/2018 showing satisfactory positioning of the G-tube with tip in the stomach. Upper GI series done on 03/11/2018 shows confirmation of G-tube in the gastric lumen. On 03/11, prior to the above she underwent a G-tube replacement without complications and a KUB done on 03/12/2018 showed G-tube was noted in the right position. BRIEF HOSPITAL COURSE: The patient is an 87-year-old [place] female, who presented from [facility] with above-mentioned complaints, namely a G-tube leakage and redness around the G-tube. On initial labs, she was noted to have a sodium 131 and her vital signs were noted to be relatively normal, but physically she looked edematous and significant peripheral bilateral lower extremity edema. Given her chronic respiratory failure, she was admitted to the ICU for close monitoring and was placed on IV antibiotics for G-tube cellulitis. Her G-tube feeds were withheld and she was placed on IV antibiotics. She was also pancultured including G-tube site wound culture. A Pulmonary as well as a GI eval were asked for and the patient underwent above-mentioned diagnostics. She eventually had the G-tube replaced and feedings were started with no noticeable residual from the feedings. She has had G-tube leakage since then, but the amount has diminished. Cultures from the G-tube site came back positive for E. coli and her antibiotics were changed from Rocephin which showed some sensitivity to the E. coli to meropenem which also was sensitive, but appeared to be more effective. Respiratory melgoza, she has been stable in her current settings and her labs as well as her vital signs have also remained stable. Her edema has noticeably improved with IV Lasix and her sodium as noted above has improved. MEDICATIONS ON DISCHARGE: Tylenol 650 mg q. 6 p.r.n. for fever or pain, amiodarone 200 mg daily, ascorbic acid 500 mg daily, iron sulfate 325mg b.i.d., Lasix 40 mg daily, insulin sliding scale per protocol, lactobacillus 1 tab b.i.d., meropenem 500 mg IV q. 8 x 10 more days, multivitamins and minerals, Protonix 40 mg p.o. daily, spironolactone 25 mg b.i.d. CONDITION ON DISCHARGE: Stable. DISPOSITION: Discharged back to [facility] subacute unit under Dr. Pollard. [facility]# [id number] CHARI
== END 2018-03-14 16:20 | DRG 393 ==
LOC: ER 10:56 → ICU 14:10
PROVIDERS: ADMIT Internal Medicine; ATTEND Internal Medicine
PROC: 5A1945Z Respiratory Ventilation, 24-96 Consecutive Hours (ICD-10-PCS; 2018-03-10)
PROC: 0D20XUZ Change Feeding Device in Upper Intestinal Tract, External Approach (ICD-10-PCS; principal; 2018-03-12)
DX: K94.20 Gastrostomy complication, unspecified (principal); R53.2 Functional quadriplegia; L03.311 Cellulitis of abdominal wall; J96.10 Chronic respiratory failure, unspecified whether with hypoxia or hypercapnia; Z99.11 Dependence on respirator [ventilator] status; E87.1 Hypo-osmolality and hyponatremia; B96.20 Unspecified Escherichia coli [E. coli] as the cause of diseases classified elsewhere; E11.9 Type 2 diabetes mellitus without complications; I50.9 Heart failure, unspecified; I11.0 Hypertensive heart disease with heart failure; L89.159 Pressure ulcer of sacral region, unspecified stage; G20 Parkinson's disease; R13.10 Dysphagia, unspecified; Z86.73 Personal history of transient ischemic attack (TIA), and cerebral infarction without residual deficits; Z87.898 Personal history of other specified conditions; Z82.49 Family history of ischemic heart disease and other diseases of the circulatory system
CPT/HCPCS: 36415-UA; 71045-TC; 74000-TC; 80048-TC; 80053-TC; 82270-TC; 82378-90; 82728-90; 82948-90; 83036-90; 83540-90; 83550-90; 83605; 83735-TC; 84132-TC; 84443-TC; 84484-TC; 85025-TC; 87070; 87070-90; 87075-90; 87205-90; 94002; 94003; C9113; J0696; J1815; J1940; J2185; J2543; J3370; J7030; J7042; Z7610